=== PATIENT | male | born 1945 | race Caucasian/White ===

== ENCOUNTER 2019-10-09 02:01 | Emergency (ER) | payer MEDICARE ==
[~2019-10-09] VITALS: Ht 177.8 cm; Wt 95.3 kg
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
--- OUTSIDE RECORDS SUMMARY | 2019-10-09 02:04 | XMS REPORT | Summary of Care ---
Author Author [facility] Address [address] [place] [address] Phone Unavailable Care Team Providers Care Area Attendant Name Role Phone JUANITA Castaneda, BRAULIO Unavailable Unavailable MIGDALIA Garcia, HARRIS Unavailable Unavailable ILIA Garcia, LOUIS Unavailable Unavailable MARÍA VAZ CO, DASHAWN ROBERSON Unavailable Unavailable Rolan VAZ, Iftikhar Unavailable Unavailable DANNY VAZ CO, FREDY Unavailable Unavailable JUANITA MALDONADO CO, BRAULIO Unavailable Unavailable ILIA VAZ, LOUIS Unavailable Unavailable JAQUELINE HUA, VENITA Unavailable Unavailable KESHIA VAZ, MIKKI Schafer Unavailable Unavailable MARÍA Garcia, DASHAWN Unavailable Unavailable WERO GOODWIN, LOVE Unavailable Unavailable MARCO VAZ CO, ANEL Unavailable Unavailable MIGDALIA VAZ CO, HARRIS A Unavailable Unavailable Unavailable Unavailable Functional Status Name Dates Details Functional status health issues are not documented Status: Name Dates Details Cognitive status health issues are not documented Status: Problems Name Dates Details Acute UTI (599.0, N39.0) Status: Active Advanced care planning/counseling discussion (V65.49, Z71.89) Status: Active Allergic rhinitis due to pollen (477.0, J30.1) Status: Active Colon cancer screening (V76.51, Z12.11) Status: Active Depression screening (V79.0, Z13.31) Status: Active Dysthymia (300.4, F34.1) Status: Active Elevated lipids (272.4, E78.5) Status: Active Encounter for mini-mental status examination Status: Active Fatty liver (571.8, K76.0) Status: Active Flu vaccine need (V04.81, Z23) Status: Active H/O acute pancreatitis (V12.79, Z87.19) Status: Active Hypercalcemia (275.42, E83.52) Status: Active Lymphedema (457.1, I89.0) Status: Active Morbid obesity (278.01, E66.01) Status: Active Nocturnal dyspnea (786.02, R06.00) Status: Active Obesity, morbid, BMI 40.0-49.9 (278.01, E66.01) Status: Active RAMIRO on CPAP (327.23, G47.33) Status: Active Psychophysiological insomnia (307.42, F51.04) Status: Active S/P abdominal aortic aneurysm repair (V45.89, Z98.890) Status: Active S/P laparoscopic cholecystectomy (V45.89, Z90.49) Status: Active SOB (shortness of breath) (786.05, R06.02) Status: Active History of malignant neoplasm of skin (V10.83, Z85.828) Status: Resolved Slow transit constipation (564.01, K59.01) Status: Active Daytime hypersomnolence (780.54, G47.19) Status: Active 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, 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 Other dermatitis (692.9, L30.8) Status: Active History of Vasculitic ulcer of lower extremity (707.10, L97.909) Status: Resolved Venous stasis ulcer (454.0, I83.009) Status: Active Atrial dilatation (429.3, I51.7) Status: Active BPH associated with nocturia (600.01, N40.1) Status: Active Psoriasis (696.1, L40.9) Status: Active Seborrheic dermatitis (690.10, L21.9) Status: Active 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, N52.9) Status: Active ETD (Eustachian tube dysfunction), bilateral (381.81, H69.83) Status: Active Anticoagulant long-term use (V58.61, Z79.01) Status: Active History of claustrophobia (V11.8, Z86.59) Status: Active On statin therapy (V58.69, Z79.899) Status: Active Compression fracture of L3 lumbar vertebra (805.4, S32.030A) Status: Active Recurrent low back pain (724.2, M54.5) Status: Active Need for influenza vaccination (V04.81, Z23) Status: Active Dyspnea (786.09, R06.00) Status: Active Seasonal allergic rhinitis (477.9, J30.2) Status: Active Need for Tdap vaccination (V06.1, Z23) Status: Active Abrasion of left knee, initial encounter (916.0, S80.212A) Status: Active Abrasion of right knee, initial encounter (916.0, S80.211A) Status: Active Cellulitis of knee (682.6, L03.119) Status: Active Rib injury (959.11, S29.9XXA) Status: Active Bilateral contusion of ribs (922.1, S20.219A) Status: Active Multiple falls (V15.88, R29.6) Status: Active Low back pain (724.2, M54.5) Status: Active Ulcer of sacral region, stage 2 (707.8, L98.429) Status: Active COPD, 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, 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 Dyspnea on exertion (786.09, R06.09) Status: Active Severe mitral regurgitation (424.0, I34.0) Status: Active Aortic stenosis (424.1, I35.0) Status: Active Preoperative testing (V72.84, Z01.818) Status: Active 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, 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: Active Venous insufficiency (chronic) (peripheral) (459.81, I87.2) Status: Active Umbilical hernia (553.1, K42.9) Status: Active 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, Z98.890) Status: Active CKD (chronic kidney disease) stage 3, GFR 30-59 ml/min (585.3, N18.3) Status: Active Impaired fasting glucose (790.21, R73.01) Status: Active Hyperlipidemia (272.4, E78.5) Status: Active Mitral regurgitation (424.0, I34.0) Status: Active PVC (premature ventricular contraction) (427.69, I49.3) Status: Active Back pain (724.5, M54.9) Status: Active Thumb pain (729.5, M79.646) Status: Active Shoulder pain, left (719.41, M25.512) Status: Active At moderate risk for fall (V15.88, Z91.81) Status: Active Atrial fibrillation (427.31, I48.91) Status: Active CHF (congestive heart failure) (428.0, I50.9) Status: Active Essential (primary) hypertension (401.9, I10) Status: Active Medications Name Dates Details Fish Oil 1000 MG Oral Capsule TAKE 2 CAPSULE DAILY Active Potassium 99 MG Oral Tablet TAKE 2 TABLET DAILY * Refills: 0 Active Furosemide 40 MG Oral Tablet TAKE 1 TO 2 TABLETS BY MOUTH ONCE DAILY * Quantity: 100 Refills: 2 YEH D.O., BRAULIO * Start : 28-Jan-2016 Active Fluticasone Propionate 50 MCG/ACT Nasal Suspension USE 2 SPRAYS IN EACH NOSTRIL ONCE DAILY * Quantity: 1 Refills: 5 YEH D.O., BRAULIO * Start : 02-Aug-2018 Active 16 GM Bottle Acetaminophen-Codeine #3 300-30 MG Oral Tablet TAKE 1 TABLET 4 TIMES DAILY NEEDED FOR PAIN. * Quantity: 60 Refills: 0 YEH D.O., BRAULIO * Start : 14-Mar-2018 Active Metamucil Free & Natural 43 % Oral Powder daily * Refills: 0 * Start : 02-Apr-2017 Active 822 GM Bottle Levalbuterol Tartrate 45 MCG/ACT Inhalation Aerosol INHALE 1 TO 2 PUFFS EVERY 4 TO 6 HOURS NEEDED. * Quantity: 1 Refills: 3 YEH D.O., NOHEMIN * Start : 13-Nov-2015 Active 15 GM Inhaler Lisinopril 10 MG Oral Tablet TAKE 1 TABLET DAILY. * Quantity: 30 Refills: 11 LOUIS MORILLO M.D. * Start : 09-Aug-2019 Active Betamethasone Dipropionate Aug 0.05 % External Ointment APPLY SPARINGLY TO PSORIATIC AREAS TWICE DAILY UNTIL IMPROVED THEN DISCONTINUE U NTIL THE NEXT FLARE-UP. * Quantity: 1 Refills: 5 YEH D.O.BRAULIO * Start : 19-Nov-2017 Active 50 GM Tube Rosuvastatin Calcium 5 MG Oral Tablet TAKE 1 TABLET BEDTIME * Quantity: 90 Refills: 1 YEH D.O., BRAULIO * Start : 29-Mar-2018 Active Ferrous Sulfate 325 (65 Fe) MG Oral Tablet TAKE 1 TABLET DAILY DIRECTED. * Refills: 0 * Start : 05-May-2019 Active Ventolin HFA 108 (90 Base) MCG/ACT Inhalation Aerosol Solution INHALE 1 TO 2 PUFFS BY MOUTH EVERY 4 TO 6 HOURS NEEDED * Quantity: 1 Refills: 5 YEH D.O., BRAULIO * Start : 13-Dec-2018 Active 18 GM Inhaler TH Vitamin B-12 TABS TAKE 1 TABLET DAILY. * Refills: 0 Active Tylenol Arthritis Pain 8 Hour 650 MG TBCR TAKE 2 TABLET TWICE DAILY PRN * Refills: 0 Active Vitamin B-6 TABS Pt. states he takes i daily and thinks it is 100 mg. * Refills: 0 Active Multivitamins TABS TAKE 1 TABLET DAILY * Refills: 0 Active Compression Stocking Pressure 20-30 * Quantity: 1 Refills: 0 HARRIS NEGRON M.D. * Start : 14-Jul-2016 Active Diclofenac Sodium 1 % Transdermal Gel APPLY SPARINGLY TO AFFECTED AREA(S)twice DAILY * Quantity: 1 Refills: 3 YEH D.O.BRAULIO * Start : 13-Jul-2019 Active 100 GM Tube Allergies and Adverse Reactions Name Dates Details No Known Drug Allergies (Allergy) Status: Active Past Medical History Name Dates Details History of abdominal aortic aneurysm (AAA) (V12.59, Z86.79) Status: Resolved History of Abdominal aortic aneurysm without mention of rupture (441.4, I71.4) Status: Resolved History of abdominal pain (V13.89, Z87.898) Status: Resolved History of acute cholecystitis (V12.79, Z87.19) Status: Resolved History of biliary colic (V12.79, Z87.19) Status: Resolved History of Cholecystostomy care (V55.4, Z43.4) Status: Resolved History of cholelithiasis (V12.79, Z87.19) Status: Resolved History of chronic cholecystitis (V12.79, Z87.19) Status: Resolved History of Contusion of rib on right side (922.1, S20.211A) Status: Resolved History of diarrhea (V12.79, Z87.898) Status: Resolved History of diverticulitis (V12.70, Z87.19) Status: Resolved History of essential hypertension (V12.59, Z86.79) Status: Resolved History of Fall at home (E888.9, W19.XXXA) Status: Resolved History of Gallstone pancreatitis (577.0, K85.10) Status: Resolved History of hematuria (V13.09, Z87.448) Status: Resolved History of Hernia (553.9, K46.9) Status: Resolved History of hyperlipidemia (V12.29, Z86.39) Status: Resolved History of malignant neoplasm of skin (V10.83, Z85.828) Status: Resolved History of pneumococcal vaccination (V49.89, Z92.29) Status: Resolved History of Preoperative clearance (V72.84, Z01.818) Status: Resolved History of right flank pain (V13.89, Z87.898) Status: Resolved History of Stasis ulcer of ankle, left (454.0, I83.023) Status: Resolved History of Transient left leg weakness (729.89, R29.898) Status: Resolved History of Upper respiratory infection, acute (465.9, J06.9) Status: Resolved History of Vasculitic ulcer of lower extremity (707.10, L97.909) Status: Resolved Procedures Procedure Dates Details History of Hernia Repair Completed History of Cholecystectomy Completed History of Percutaneous Vertebral Augmentation Kyphoplasty Completed 12-Apr-2018 Immunization Name Dates Details Tdap on: Sep-2001 Influenza on: 27-Jun-2012 Fluzone INJ Lot #: [id number] on: 05-Jun-2013 Fluzone INJ on: 06-Jun-2014 Fluzone INJ on: 21-May-2015 Prevnar 13 Intramuscular Suspension Lot #: [id number] on: 28-Jun-2015 Fluzone Quadrivalent 0.5 ML Intramuscular Suspension Prefilled Syringe Lot #: [id number] on: 12-May-2016 Pneumovax 23 25 MCG/0.5ML Injection Injectable Lot #: [id number] on: 08-Jul-2016 Fluzone Quadrivalent 0.5 ML Intramuscular Suspension Prefilled Syringe Lot #: [id number] on: 18-May-2017 Fluzone Quadrivalent 0.5 ML Intramuscular Suspension Prefilled Syringe Lot #: [id number] on: 11-May-2018 Tdap (Boostrix) Lot #: [id number] on: 02-Aug-2018 Fluzone High-Dose 0.5 ML Intramuscular Suspension Prefilled Syringe Lot #: [id number] on: 14-Jun-2019 Family History Name Dates Details Family history of lung cancer (V16.1, Z80.1) Status: Active Name Dates Details Family history of Coronary artery disease (414.00, I25.10) Status: Active Family history of Aneurysm (442.9, I72.9) Status: Active Family history of Carotid artery disease (447.9, I73.9) Status: Active Social History Name Dates Details - Status: Name Dates Details Former smoker Former smoker Vital Signs Date Test Result Details No Known Vitals to report Results Date Description Value Details Results not documented Plan of Care Name Dates Details Planned Observations Planned Goals not documented Planned Encounters Appointment; ANTOLIN TONY On: 13-Oct-2019 14:30 Appointment; IFTIKHAR YI M.D. On: 13-Oct-2019 15:40 Appointment; LOUIS MORILLO M.D. On: 30-Oct-2019 13:20 Instructions Name Dates Details Instructions not documented Encounters Appointment; VASCULAR, SE Encounter Diagnosis: Problem not documented On: 18-Oct-2017 10:00 Appointment; HARRIS NEGRON M.D. Encounter Diagnosis: Problem not documented On: 19-Oct-2017 11:45 Appointment; HARRIS NEGRON M.D. Encounter Diagnosis: Problem not documented On: 19-Oct-2017 13:00 Appointment; KVNG SANTANA NP Encounter Diagnosis: Problem not documented On: 19-Nov-2017 11:15 Appointment; KVNG SANTANA NP Encounter Diagnosis: Problem not documented On: 03-Mar-2018 13:15 Appointment; BRAULIO GRANT D.O. Encounter Diagnosis: Problem not documented On: 14-Mar-2018 10:30 Appointment; LOUIS MORILLO M.D. Encounter Diagnosis: Problem not documented On: 29-Mar-2018 14:40 Appointment; BRAULIO GRANT D.O. Encounter Diagnosis: Problem not documented On: 20-Apr-2018 15:00 Appointment; KVNG SANTANA NP Encounter Diagnosis: Problem not documented On: 11-May-2018 13:00 Appointment; BRENDAN PAREKH Encounter Diagnosis: Problem not documented On: 29-Jun-2018 15:00 Appointment; LOUIS MORILLO M.D. Encounter Diagnosis: Problem not documented On: 04-Jul-2018 13:20 Appointment; BRAULIO GRANT D.O. Encounter Diagnosis: Problem not documented On: 02-Aug-2018 13:00 Appointment; LOVE CONTEH P.A. Encounter Diagnosis: Problem not documented On: 01-Sep-2018 11:15 Appointment; VENITA PARSONS NP Encounter Diagnosis: Problem not documented On: 03-Nov-2018 10:00 Appointment; BRAULIO GRANT D.O. Encounter Diagnosis: Problem not documented On: 22-Nov-2018 13:30 Appointment; BRAULIO GRANT D.O. Encounter Diagnosis: Problem not documented On: 28-Nov-2018 13:30 Appointment; HARRIS NEGRON M.D. Encounter Diagnosis: Problem not documented On: 01-Dec-2018 14:45 Appointment; BRAULIO GRANT D.O. Encounter Diagnosis: Problem not documented On: 07-Dec-2018 13:00 Appointment; VASCULAR, SE Encounter Diagnosis: Problem not documented On: 16-Dec-2018 13:00 Appointment; BRAULIO GRANT D.O. Encounter Diagnosis: Problem not documented On: 20-Dec-2018 15:00 Appointment; HARRIS NEGRON M.D. Encounter Diagnosis: Problem not documented On: 23-Dec-2018 14:15 Appointment; BRAULIO GRANT D.O. Encounter Diagnosis: Problem not documented On: 03-Jan-2019 13:00 Appointment; LOUIS MORILLO M.D. Encounter Diagnosis: Problem not documented On: 12-Jan-2019 14:40 Appointment; IFTIKHAR YI M.D. Encounter Diagnosis: Problem not documented On: 24-Feb-2019 13:20 Appointment; BRAULIO GRANT D.O. Encounter Diagnosis: Problem not documented On: 29-Mar-2019 14:00 Appointment; LOUIS MORILLO M.D. Encounter Diagnosis: Problem not documented On: 06-Apr-2019 11:20 Appointment; PROCEDURES, CARDIO Encounter Diagnosis: Problem not documented On: 11-Apr-2019 11:00 Appointment; BRAULIO GRANT D.O. Encounter Diagnosis: Problem not documented On: 05-May-2019 12:45 Appointment; ANTOLIN TONY Encounter Diagnosis: Problem not documented On: 12-May-2019 14:30 Appointment; IFTIKHAR YI M.D. Encounter Diagnosis: Problem not documented On: 12-May-2019 15:20 Appointment; LOUIS MORILLO M.D. Encounter Diagnosis: Problem not documented On: 18-May-2019 14:00 Appointment; [facility] Encounter Diagnosis: Problem not documented On: 23-May-2019 13:00 Appointment; BRAULIO GRANT D.O. Encounter Diagnosis: Problem not documented On: 14-Jun-2019 15:15 Appointment; LOUIS MORILLO M.D. Encounter Diagnosis: Problem not documented On: 03-Jul-2019 16:00 Appointment; BRAULIO GRATN D.O. Encounter Diagnosis: Problem not documented On: 13-Jul-2019 14:00 Appointment; FREDY DELGADO M.D. Encounter Diagnosis: Problem not documented On: 21-Jul-2019 11:00 Appointment; FREDY DELGADO M.D. Encounter Diagnosis: Problem not documented On: 18-Aug-2019 11:00
--- OUTSIDE RECORDS SUMMARY | 2019-10-09 02:04 | XMS REPORT | Summary of Care ---
Author Author [facility] Address [address] [place] [address] Phone Unavailable Care Team Providers Care Planning Feeder Name Role Phone JUANITA Castaneda, BRAULIO Unavailable Unavailable MIGDALIA Garcia, HARRIS Unavailable Unavailable ILIA Garcia, LOUIS Unavailable Unavailable MARÍA VAZ LA, DASHAWN ROBERSON Unavailable Unavailable Rolan VAZ, Iftikhar Unavailable Unavailable DANNY VAZ LA, FREDY Unavailable Unavailable JUANITA MALDONADO LA, BRAULIO Unavailable Unavailable ILIA VAZ, LOUIS Unavailable Unavailable JAQUELINE HENRYP, VENITA Unavailable Unavailable KESHIA VAZ, MIKKI Schafer Unavailable Unavailable MARÍA Garcia, DASHAWN Unavailable Unavailable WERO GOODWIN, LOVE Unavailable Unavailable MARCO VAZ LA, ANEL Unavailable Unavailable MIGDALIA VAZ LA, HARRIS A Unavailable Unavailable Unavailable Unavailable Functional Status Name Dates Details Functional status health issues are not documented Status: Name Dates Details Cognitive status health issues are not documented Status: Problems Name Dates Details History of Vasculitic ulcer of lower extremity (707.10, L97.909) Status: Resolved Seasonal allergic rhinitis (477.9, J30.2) Status: Active Abrasion of left knee, initial encounter (916.0, S80.212A) Status: Active Abrasion of right knee, initial encounter (916.0, S80.211A) Status: Active Cellulitis of knee (682.6, L03.119) Status: Active Low back pain (724.2, M54.5) Status: Active Severe mitral regurgitation (424.0, I34.0) Status: Active Aortic stenosis (424.1, I35.0) Status: Active CKD (chronic kidney disease) stage 3, GFR 30-59 ml/min (585.3, N18.3) Status: Active Impaired fasting glucose (790.21, R73.01) Status: Active Hyperlipidemia (272.4, E78.5) Status: Active Mitral regurgitation (424.0, I34.0) Status: Active 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, Z98.890) Status: Active Umbilical hernia (553.1, K42.9) Status: Active Venous insufficiency (chronic) (peripheral) (459.81, I87.2) Status: Active 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, 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: Active Preoperative testing (V72.84, Z01.818) Status: Active Dyspnea on exertion (786.09, R06.09) Status: Active COPD, 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, 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 Ulcer of sacral region, stage 2 (707.8, L98.429) Status: Active Multiple falls (V15.88, R29.6) Status: Active Bilateral contusion of ribs (922.1, S20.219A) Status: Active Rib injury (959.11, S29.9XXA) Status: Active Need for Tdap vaccination (V06.1, Z23) Status: Active Dyspnea (786.09, R06.00) Status: Active Need for influenza vaccination (V04.81, Z23) Status: Active Recurrent low back pain (724.2, M54.5) Status: Active Compression fracture of L3 lumbar vertebra (805.4, S32.030A) Status: Active On statin therapy (V58.69, Z79.899) Status: Active History of claustrophobia (V11.8, Z86.59) Status: Active Anticoagulant long-term use (V58.61, Z79.01) Status: Active ETD (Eustachian tube dysfunction), bilateral (381.81, H69.83) Status: Active 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, N52.9) Status: Active Seborrheic dermatitis (690.10, L21.9) Status: Active Psoriasis (696.1, L40.9) Status: Active BPH associated with nocturia (600.01, N40.1) Status: Active Atrial dilatation (429.3, I51.7) Status: Active Venous stasis ulcer (454.0, I83.009) Status: Active Other dermatitis (692.9, L30.8) Status: Active 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, 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 Daytime hypersomnolence (780.54, G47.19) Status: Active Slow transit constipation (564.01, K59.01) Status: Active History of malignant neoplasm of skin (V10.83, Z85.828) Status: Resolved SOB (shortness of breath) (786.05, R06.02) Status: Active S/P laparoscopic cholecystectomy (V45.89, Z90.49) Status: Active S/P abdominal aortic aneurysm repair (V45.89, Z98.890) Status: Active Psychophysiological insomnia (307.42, F51.04) Status: Active RAMIRO on CPAP (327.23, G47.33) Status: Active Obesity, morbid, BMI 40.0-49.9 (278.01, E66.01) Status: Active Nocturnal dyspnea (786.02, R06.00) Status: Active Morbid obesity (278.01, E66.01) Status: Active Lymphedema (457.1, I89.0) Status: Active Hypercalcemia (275.42, E83.52) Status: Active H/O acute pancreatitis (V12.79, Z87.19) Status: Active Flu vaccine need (V04.81, Z23) Status: Active Fatty liver (571.8, K76.0) Status: Active Encounter for mini-mental status examination Status: Active Elevated lipids (272.4, E78.5) Status: Active Dysthymia (300.4, F34.1) Status: Active Depression screening (V79.0, Z13.31) Status: Active Colon cancer screening (V76.51, Z12.11) Status: Active Allergic rhinitis due to pollen (477.0, J30.1) Status: Active Advanced care planning/counseling discussion (V65.49, Z71.89) Status: Active Acute UTI (599.0, N39.0) Status: Active Essential (primary) hypertension (401.9, I10) Status: Active CHF (congestive heart failure) (428.0, I50.9) Status: Active Atrial fibrillation (427.31, I48.91) Status: Active At moderate risk for fall (V15.88, Z91.81) Status: Active Shoulder pain, left (719.41, M25.512) Status: Active Thumb pain (729.5, M79.646) Status: Active Back pain (724.5, M54.9) Status: Active PVC (premature ventricular contraction) (427.69, I49.3) Status: Active Medications Name Dates Details Multivitamins TABS TAKE 1 TABLET DAILY Active Fish Oil 1000 MG Oral Capsule TAKE 2 CAPSULE DAILY * Refills: 0 Active Vitamin B-6 TABS Pt. states he takes i daily and thinks it is 100 mg. * Refills: 0 Active Potassium 99 MG Oral Tablet TAKE 2 TABLET DAILY * Refills: 0 Active Tylenol Arthritis Pain 8 Hour 650 MG TBCR TAKE 2 TABLET TWICE DAILY PRN * Refills: 0 Active Levalbuterol Tartrate 45 MCG/ACT Inhalation Aerosol INHALE 1 TO 2 PUFFS EVERY 4 TO 6 HOURS NEEDED. * Quantity: 1 Refills: 3 YEH D.O.BRAULIO * Start : 13-Nov-2015 Active 15 GM Inhaler Furosemide 40 MG Oral Tablet TAKE 1 TO 2 TABLETS BY MOUTH ONCE DAILY * Quantity: 100 Refills: 2 YEH D.O., BRAULIO * Start : 28-Jan-2016 Active Diclofenac Sodium 1 % Transdermal Gel APPLY SPARINGLY TO AFFECTED AREA(S)twice DAILY * Quantity: 1 Refills: 3 YEH D.O.BRAULIO * Start : 13-Jul-2019 Active 100 GM Tube Metamucil Free & Natural 43 % Oral Powder daily * Refills: 0 * Start : 02-Apr-2017 Active 822 GM Bottle Rosuvastatin Calcium 5 MG Oral Tablet TAKE 1 TABLET BEDTIME * Quantity: 90 Refills: 1 YEH D.O.BRAULIO * Start : 29-Mar-2018 Active Ferrous Sulfate 325 (65 Fe) MG Oral Tablet TAKE 1 TABLET DAILY DIRECTED. * Refills: 0 * Start : 05-May-2019 Active Fluticasone Propionate 50 MCG/ACT Nasal Suspension USE 2 SPRAYS IN EACH NOSTRIL ONCE DAILY * Quantity: 1 Refills: 5 YEH D.O.BRAULIO * Start : 02-Aug-2018 Active 16 GM Bottle Acetaminophen-Codeine #3 300-30 MG Oral Tablet TAKE 1 TABLET 4 TIMES DAILY NEEDED FOR PAIN. * Quantity: 60 Refills: 0 YEH D.O., BRAULIO * Start : 14-Mar-2018 Active Compression Stocking Pressure 20-30 * Quantity: 1 Refills: 0 MIGDALIA Garcia HARRIS * Start : 14-Jul-2016 Active TH Vitamin B-12 TABS TAKE 1 TABLET DAILY. * Refills: 0 Active Lisinopril 10 MG Oral Tablet TAKE 1 TABLET DAILY. * Quantity: 30 Refills: 11 FAUSTINO MORILLO M.D.D * Start : 09-Aug-2019 Active Ventolin HFA 108 (90 Base) MCG/ACT Inhalation Aerosol Solution INHALE 1 TO 2 PUFFS BY MOUTH EVERY 4 TO 6 HOURS NEEDED * Quantity: 1 Refills: 5 YEH D.O.BRAULIO * Start : 13-Dec-2018 Active 18 GM Inhaler Betamethasone Dipropionate Aug 0.05 % External Ointment APPLY SPARINGLY TO PSORIATIC AREAS TWICE DAILY UNTIL IMPROVED THEN DISCONTINUE U NTIL THE NEXT FLARE-UP. * Quantity: 1 Refills: 5 YEH D.O.BRAULIO * Start : 19-Nov-2017 Active 50 GM Tube Allergies and Adverse Reactions Name [...] Influenza on: 27-Jun-2012 Fluzone INJ Lot #: [id number] on: 05-Jun-2013 Fluzone INJ on: 06-Jun-2014 Fluzone INJ on: 21-May-2015 Prevnar 13 Intramuscular Suspension Lot #: [id number] on: 28-Jun-2015 Fluzone Quadrivalent 0.5 ML Intramuscular Suspension Prefilled Syringe Lot #: [id number] on: 12-May-2016 Pneumovax 23 25 MCG/0.5ML Injection Injectable Lot #: [id number] on: 08-Jul-2016 Fluzone Quadrivalent 0.5 ML Intramuscular Suspension Prefilled Syringe Lot #: [id number] on: 18-May-2017 Fluzone Quadrivalent 0.5 ML Intramuscular Suspension Prefilled Syringe Lot #: [id number] on: 11-May-2018 Tdap (Boostrix) Lot #: [id number] on: 02-Aug-2018 Fluzone High-Dose 0.5 ML Intramuscular Suspension Prefilled Syringe Lot #: [id number] on: 14-Jun-2019 Family History Name Dates Details [...] Problem not documented On: 18-May-2019 14:00 Appointment; [facility] Encounter Diagnosis: Problem not documented On: 23-May-2019 13:00 Appointment; BRAULIO GRANT D.O. Encounter Diagnosis: Problem not documented On: 14-Jun-2019 15:15 Appointment; LOUIS MORILLO M.D. Encounter Diagnosis: Problem not documented On: 03-Jul-2019 16:00 Appointment; BRAULIO GRANT D.O. Encounter Diagnosis: Problem not documented On: 13-Jul-2019 14:00 Appointment; FREDY DELGADO M.D. Encounter Diagnosis: Problem not documented On: 21-Jul-2019 11:00 Appointment; FREDY DELGADO M.D. Encounter Diagnosis: Problem not documented On: 18-Aug-2019 11:00
--- OUTSIDE RECORDS SUMMARY | 2019-10-09 02:04 | XMS REPORT | Summary of Care ---
Author Author [facility] Address [address] [place] [address] Phone Unavailable Care Team Providers Care Rigger Name Role Phone JUANITA Castaneda, BRAULIO Unavailable Unavailable MIGDALIA Garcia, HARRIS Unavailable Unavailable ILIA Garcia, LOUIS Unavailable Unavailable MARÍA VAZ PA, DASHAWN ROBERSON Unavailable Unavailable Rolan VAZ, Iftikhar Unavailable Unavailable DANNY VAZ PA, FREDY Unavailable Unavailable JUANITA MALDONADO PA, BRAULIO Unavailable Unavailable ILIA VAZ, LOUIS Unavailable Unavailable JAQUELINE HUA, VENITA Unavailable Unavailable KESHIA VAZ, MIKKI Scahfer Unavailable Unavailable MARÍA Garcia, DASHAWN Unavailable Unavailable WERO GOODWIN, LOVE Unavailable Unavailable MARCO VAZ PA, ANEL Unavailable Unavailable MIGDALIA VAZ PA, HARRIS A Unavailable Unavailable Unavailable Unavailable Functional [...] I10) Status: Active Medications Name Dates Details Multivitamins [...] TWICE DAILY PRN * Refills: 0 Active TH Vitamin B-12 TABS TAKE 1 TABLET DAILY. * Refills: 0 Active Levalbuterol Tartrate 45 MCG/ACT Inhalation Aerosol INHALE 1 TO 2 PUFFS EVERY 4 TO 6 HOURS NEEDED. * Quantity: 1 Refills: 3 YEH D.O., BRAULIO * Start : 13-Nov-2015 Active 15 GM Inhaler Furosemide 40 MG Oral Tablet TAKE 1 TO 2 TABLETS BY MOUTH ONCE DAILY * Quantity: 100 Refills: 2 YEH D.O., BRAULIO * Start : 28-Jan-2016 Active Compression Stocking Pressure 20-30 * Quantity: 1 Refills: 0 HARRIS NEGRON M.D. * Start : 14-Jul-2016 Active Metamucil Free & Natural 43 % Oral Powder daily * Refills: 0 * Start : 02-Apr-2017 Active 822 GM Bottle Betamethasone Dipropionate Aug 0.05 % External Ointment APPLY SPARINGLY TO PSORIATIC AREAS TWICE DAILY UNTIL IMPROVED THEN DISCONTINUE U NTIL THE NEXT FLARE-UP. * Quantity: 1 Refills: 5 YEH D.O., BRAULIO * Start : 19-Nov-2017 Active 50 GM Tube Acetaminophen-Codeine #3 300-30 MG Oral Tablet TAKE 1 TABLET 4 TIMES DAILY NEEDED FOR PAIN. * Quantity: 60 Refills: 0 YEH D.O., BRAULIO * Start : 14-Mar-2018 Active Rosuvastatin Calcium 5 MG Oral Tablet TAKE 1 TABLET BEDTIME * Quantity: 90 Refills: 1 YEH D.O., BRAULIO * Start : 29-Mar-2018 Active Fluticasone Propionate 50 MCG/ACT Nasal Suspension USE 2 SPRAYS IN EACH NOSTRIL ONCE DAILY * Quantity: 1 Refills: 5 YEH D.O., BRAULIO * Start : 02-Aug-2018 Active 16 GM Bottle Ventolin HFA 108 (90 Base) MCG/ACT Inhalation Aerosol Solution INHALE 1 TO 2 PUFFS BY MOUTH EVERY 4 TO 6 HOURS NEEDED * Quantity: 1 Refills: 5 YEH D.O., BRAULIO * Start : 13-Dec-2018 Active 18 GM Inhaler Ferrous Sulfate 325 (65 Fe) MG Oral Tablet TAKE 1 TABLET DAILY DIRECTED. * Refills: 0 * Start : 05-May-2019 Active Diclofenac Sodium 1 % Transdermal Gel APPLY SPARINGLY TO AFFECTED AREA(S)twice DAILY * Quantity: 1 Refills: 3 YEH D.O., BRAULIO * Start : 13-Jul-2019 Active 100 GM Tube Lisinopril 10 MG Oral Tablet TAKE 1 TABLET DAILY. * Quantity: 30 Refills: 11 LOUIS MORILLO M.D. * Start : 09-Aug-2019 Active Allergies and Adverse Reactions Name Dates Details [...] Influenza on: 27-Jun-2012 Fluzone INJ Lot #: [id number] on: 05-Jun-2013 Fluzone INJ on: 06-Jun-2014 Fluzone INJ on: 21-May-2015 Prevnar 13 Intramuscular Suspension Lot #: [id number] on: 28-Jun-2015 Fluzone Quadrivalent 0.5 ML Intramuscular Suspension Prefilled Syringe Lot #: [id number] on: 12-May-2016 Pneumovax 23 25 MCG/0.5ML Injection Injectable Lot #: [id number] on: 08-Jul-2016 Fluzone Quadrivalent 0.5 ML Intramuscular Suspension Prefilled Syringe Lot #: [id number] on: 18-May-2017 Fluzone Quadrivalent 0.5 ML Intramuscular Suspension Prefilled Syringe Lot #: [id number] on: 11-May-2018 Tdap (Boostrix) Lot #: [id number] on: 02-Aug-2018 Fluzone High-Dose 0.5 ML Intramuscular Suspension Prefilled Syringe Lot #: [id number] on: 14-Jun-2019 Family History Name Dates Details [...] Problem not documented On: 18-May-2019 14:00 Appointment; [facility] Encounter Diagnosis: Problem not documented On: 23-May-2019 [...]
--- OUTSIDE RECORDS SUMMARY | 2019-10-09 02:05 | XMS REPORT | Summary of Care ---
Author Author [facility] Address [address] [place] [address] Phone Unavailable Care Team Providers Care Associate Professor Of Biblical Studies Name Role Phone JUANITA Castaneda, BRAULIO Unavailable Unavailable MIGDALIA Garcia, HARRIS Unavailable Unavailable ILIA Garcia, LOUIS Unavailable Unavailable MARÍA VAZ [place], DASHAWN ROBERSON Unavailable Unavailable Rolan VAZ, Iftikhar Unavailable Unavailable DANNY VAZ [place], FREDY Unavailable Unavailable JUANITA MALDONADO [place], BRAULIO Unavailable Unavailable ILIA VAZ, LOUIS Unavailable Unavailable JAQUELINE HUA, VENITA Unavailable Unavailable KESHIA VAZ, MIKKI Schafer Unavailable Unavailable MARÍA Garcia, DASHAWN Unavailable Unavailable WERO GOODWIN, LOVE Unavailable Unavailable MARCO VAZ [place], ANEL Unavailable Unavailable MIGDALIA VAZ [place], HARRIS A Unavailable Unavailable Unavailable Unavailable Functional [...] Start : 13-Nov-2015 Active 15 GM Inhaler Metamucil Free & Natural 43 % Oral [...] Start : 02-Aug-2018 Active 16 GM Bottle Diclofenac Sodium 1 % Transdermal Gel APPLY SPARINGLY TO AFFECTED AREA(S)twice DAILY * Quantity: 1 Refills: 3 YEH D.O., BRAULIO * Start : 13-Jul-2019 Active 100 GM Tube Lisinopril 10 MG Oral Tablet TAKE 1 TABLET DAILY. * Quantity: 30 Refills: 11 ILIA Garcia FAUSTINOLiana * Start : 09-Aug-2019 Active Ferrous Sulfate 325 (65 Fe) MG Oral Tablet TAKE 1 TABLET DAILY DIRECTED. * Refills: 0 * Start : 05-May-2019 Active TH Vitamin B-12 TABS TAKE 1 TABLET DAILY. * Refills: 0 Active Compression Stocking Pressure 20-30 * Quantity: 1 Refills: 0 HARRIS NEGRON M.D. * Start : 14-Jul-2016 Active Ventolin HFA 108 (90 Base) MCG/ACT Inhalation Aerosol Solution INHALE 1 TO 2 PUFFS BY MOUTH EVERY 4 TO 6 HOURS NEEDED * Quantity: 1 Refills: 5 YEH D.O., BRAULIO * Start : 13-Dec-2018 Active 18 GM Inhaler Furosemide 40 MG Oral Tablet TAKE 1 TO 2 TABLETS BY MOUTH ONCE DAILY * Quantity: 100 Refills: 2 YEH D.O., BRAULIO * Start : 28-Jan-2016 Active Allergies and Adverse Reactions Name Dates [...] Influenza on: 27-Jun-2012 Fluzone INJ Lot #: [id number] on: 05-Jun-2013 Fluzone INJ on: 06-Jun-2014 Fluzone INJ on: 21-May-2015 Prevnar 13 Intramuscular Suspension Lot #: [id number] on: 28-Jun-2015 Fluzone Quadrivalent 0.5 ML Intramuscular Suspension Prefilled Syringe Lot #: [id number] on: 12-May-2016 Pneumovax 23 25 MCG/0.5ML Injection Injectable Lot #: [id number] on: 08-Jul-2016 Fluzone Quadrivalent 0.5 ML Intramuscular Suspension Prefilled Syringe Lot #: [id number] on: 18-May-2017 Fluzone Quadrivalent 0.5 ML Intramuscular Suspension Prefilled Syringe Lot #: [id number] on: 11-May-2018 Tdap (Boostrix) Lot #: [id number] on: 02-Aug-2018 Fluzone High-Dose 0.5 ML Intramuscular Suspension Prefilled Syringe Lot #: [id number] on: 14-Jun-2019 Family History Name Dates Details [...] Problem not documented On: 14-Mar-2018 10:30 Appointment; LUOIS MORILLO M.D. Encounter Diagnosis: Problem not documented [...] not documented On: 23-Dec-2018 14:15 Appointment; BRAULIO GARNT D.O. Encounter Diagnosis: Problem not documented On: [...] Problem not documented On: 18-May-2019 14:00 Appointment; [facility] Encounter Diagnosis: Problem not documented On: [...]
--- OUTSIDE RECORDS SUMMARY | 2019-10-09 02:05 | XMS REPORT | Summary of Care ---
Author Author [facility] Address [address] [place] [address] Phone Unavailable Care Team Providers Care Director Of Operations Name Role Phone JUANITA Castaneda, BRAULIO Unavailable Unavailable MIGDALIA Garcia, HARRIS Unavailable Unavailable ILIA Garcia, LOUIS Unavailable Unavailable MARÍA VAZ [place], DASHAWN ROBERSON Unavailable Unavailable Rolan VAZ, Iftikhar Unavailable Unavailable DANNY VAZ [place], FREDY Unavailable Unavailable JUANITA MALDONADO [place], BRAULIO Unavailable Unavailable ILIA VAZ, LOUIS Unavailable Unavailable JAQUELINE HUA, VENITA Unavailable Unavailable KESHIA VAZ, MIKKI Schafer Unavailable Unavailable MARÍA Garcia, DASHAWN Unavailable Unavailable WERO GOODWIN, LOVE Unavailable Unavailable MARCO VAZ [place], ANEL Unavailable Unavailable MIGDALIA VAZ NE, HARRIS A Unavailable Unavailable Unavailable Unavailable Functional [...] I10) Status: Active Medications Name Dates Details Potassium 99 MG Oral Tablet TAKE 2 TABLET DAILY Active Furosemide 40 MG Oral Tablet TAKE 1 TO 2 TABLETS BY MOUTH ONCE DAILY * Quantity: 100 Refills: 2 YEH D.O., BRAULIO * Start : 28-Jan-2016 Active Lisinopril 10 MG Oral Tablet TAKE 1 TABLET DAILY. * Quantity: 30 Refills: 11 LOUIS MORILLO M.D. * Start : 09-Aug-2019 Active Compression Stocking Pressure 20-30 * Quantity: 1 Refills: 0 HARRIS NEGRON M.D. * Start : 14-Jul-2016 Active Betamethasone Dipropionate Aug 0.05 % External Ointment APPLY SPARINGLY TO PSORIATIC AREAS TWICE DAILY UNTIL IMPROVED THEN DISCONTINUE U NTIL THE NEXT FLARE-UP. * Quantity: 1 Refills: 5 YEH D.O., BRAULIO * Start : 19-Nov-2017 Active 50 GM Tube Acetaminophen-Codeine #3 300-30 MG Oral Tablet TAKE 1 TABLET 4 TIMES DAILY NEEDED FOR PAIN. * Quantity: 60 Refills: 0 YEH D.O.BRAULIO * Start : 14-Mar-2018 Active Rosuvastatin Calcium 5 MG Oral Tablet TAKE 1 TABLET BEDTIME * Quantity: 90 Refills: 1 YEH D.O.BRAULIO * Start : 29-Mar-2018 Active Fluticasone Propionate [...] Refills: 0 * Start : 05-May-2019 Active Metamucil Free & Natural 43 % Oral Powder daily * Refills: 0 * Start : 02-Apr-2017 Active 822 GM Bottle Levalbuterol Tartrate 45 MCG/ACT Inhalation Aerosol INHALE 1 TO 2 PUFFS EVERY 4 TO 6 HOURS NEEDED. * Quantity: 1 Refills: 3 YEH D.O., BRAULIO * Start : 13-Nov-2015 Active 15 GM Inhaler TH Vitamin B-12 TABS TAKE 1 TABLET DAILY. * Refills: 0 Active Tylenol Arthritis Pain 8 Hour 650 MG TBCR TAKE 2 TABLET TWICE DAILY PRN * Refills: 0 Active Vitamin B-6 TABS Pt. states he takes i daily and thinks it is 100 mg. * Refills: 0 Active Fish Oil 1000 MG Oral Capsule TAKE 2 CAPSULE DAILY * Refills: 0 Active Multivitamins TABS TAKE 1 TABLET DAILY * Refills: 0 Active Diclofenac Sodium 1 % Transdermal Gel [...] Influenza on: 27-Jun-2012 Fluzone INJ Lot #: [id number] on: 05-Jun-2013 Fluzone INJ on: 06-Jun-2014 Fluzone INJ on: 21-May-2015 Prevnar 13 Intramuscular Suspension Lot #: [id number] on: 28-Jun-2015 Fluzone Quadrivalent 0.5 ML Intramuscular Suspension Prefilled Syringe Lot #: [id number] on: 12-May-2016 Pneumovax 23 25 MCG/0.5ML Injection Injectable Lot #: [id number] on: 08-Jul-2016 Fluzone Quadrivalent 0.5 ML Intramuscular Suspension Prefilled Syringe Lot #: [id number] on: 18-May-2017 Fluzone Quadrivalent 0.5 ML Intramuscular Suspension Prefilled Syringe Lot #: [id number] on: 11-May-2018 Tdap (Boostrix) Lot #: [id number] on: 02-Aug-2018 Fluzone High-Dose 0.5 ML Intramuscular Suspension Prefilled Syringe Lot #: [id number] on: 14-Jun-2019 Family History Name Dates Details [...] IFTIKHAR YI M.D. On: 13-Oct-2019 15:40 Appointment; [facility] On: 17-Oct-2019 14:00 Appointment; LOUIS MORILLO M.D. On: 30-Oct-2019 13:20 [...] Problem not documented On: 11-May-2018 13:00 Appointment; [facility] Encounter Diagnosis: Problem not documented On: 29-Jun-2018 [...] not documented On: 01-Dec-2018 14:45 Appointment; BRAULIO GRATN D.O. Encounter Diagnosis: Problem [...] not documented On: 12-May-2019 14:30 Appointment; IFTIKHAR IY M.D. Encounter Diagnosis: Problem not documented On: 12-May-2019 15:20 Appointment; LOUIS MORILLO M.D. Encounter Diagnosis: Problem not documented On: 18-May-2019 14:00 Appointment; [facility] Encounter Diagnosis: Problem not documented On: [...]
--- OUTSIDE RECORDS SUMMARY | 2019-10-09 02:05 | XMS REPORT | Summary of Care ---
Author Author [facility] Address [address] [place] [address] Phone Unavailable Care Team Providers Care Caramel Candy Maker Helper Name Role Phone JUANITA Castaneda, BRAULIO Unavailable [...] Unavailable WERO GOODWIN, LOVE Unavailable Unavailable MARCO AVZ [place], ANEL Unavailable Unavailable MIGDALIA VAZ [place], HARRIS A Unavailable Unavailable Unavailable Unavailable Functional Status Name Dates Details Functional status health issues are not documented Status: Name Dates Details Cognitive status health issues are not documented Status: Problems Name Dates Details Acute UTI (599.0, N39.0) Status: Active Colon cancer screening (V76.51, Z12.11) Status: Active Advanced care planning/counseling discussion (V65.49, Z71.89) Status: Active Allergic rhinitis due to pollen (477.0, J30.1) Status: Active Depression screening (V79.0, Z13.31) Status: [...] Low back pain (724.2, M54.5) Status: Active COPD, 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, 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 Ulcer of sacral region, stage 2 (707.8, L98.429) Status: Active Dyspnea on exertion (786.09, R06.09) [...] * Quantity: 1 Refills: 3 YEH D.O., KARINA-MJ * Start : 13-Nov-2015 Active 15 GM Inhaler Furosemide 40 MG Oral Tablet TAKE 1 TO 2 TABLETS BY MOUTH ONCE DAILY * Quantity: 100 Refills: 2 YEH D.O., KARINA-MJ * Start : 28-Jan-2016 Active Ventolin HFA 108 (90 Base) MCG/ACT Inhalation Aerosol Solution INHALE 1 TO 2 PUFFS BY MOUTH EVERY 4 TO 6 HOURS NEEDED * Quantity: 1 Refills: 5 YEH D.O., BRAULIO * Start : 13-Dec-2018 Active 18 GM Inhaler Rosuvastatin Calcium 5 MG Oral Tablet TAKE 1 TABLET BEDTIME * Quantity: 90 Refills: 1 YEH D.O., BRAULIO * Start : 29-Mar-2018 Active Fluticasone Propionate 50 MCG/ACT Nasal Suspension USE 2 SPRAYS IN EACH NOSTRIL ONCE DAILY * Quantity: 1 Refills: 5 YEH D.O., KARINA-MJ * Start : 02-Aug-2018 Active 16 GM Bottle Acetaminophen-Codeine #3 300-30 MG Oral Tablet TAKE 1 TABLET 4 TIMES DAILY NEEDED FOR PAIN. * Quantity: 60 Refills: 0 YEH D.O., BRAULIO * Start : 14-Mar-2018 Active Ferrous Sulfate 325 (65 Fe) MG [...] Influenza on: 27-Jun-2012 Fluzone INJ Lot #: [id number] on: 05-Jun-2013 Fluzone INJ on: 06-Jun-2014 Fluzone INJ on: 21-May-2015 Prevnar 13 Intramuscular Suspension Lot #: [id number] on: 28-Jun-2015 Fluzone Quadrivalent 0.5 ML Intramuscular Suspension Prefilled Syringe Lot #: [id number] on: 12-May-2016 Pneumovax 23 25 MCG/0.5ML Injection Injectable Lot #: [id number] on: 08-Jul-2016 Fluzone Quadrivalent 0.5 ML Intramuscular Suspension Prefilled Syringe Lot #: [id number] on: 18-May-2017 Fluzone Quadrivalent 0.5 ML Intramuscular Suspension Prefilled Syringe Lot #: [id number] on: 11-May-2018 Tdap (Boostrix) Lot #: [id number] on: 02-Aug-2018 Fluzone High-Dose 0.5 ML Intramuscular Suspension Prefilled Syringe Lot #: [id number] on: 14-Jun-2019 Family History Name Dates Details [...] Problem not documented On: 18-May-2019 14:00 Appointment; [facility] Encounter Diagnosis: Problem not documented On: [...]
[2019-10-09] MEDS ORDERED: DIATRIZOATE MEGL/DIATRIZOA SOD 30 ML BTL PO ONE (02:44)
[2019-10-09 03:18] LABS: BASOPHILS % 0.5 % (0.0-1.0); EOSINOPHILS # (AUTO) 0.1 (0.0-0.4); EOSINOPHILS % 1.9 % (0.0-6.0); HEMATOCRIT 35.7 % (38.2-49.6); HEMOGLOBIN 12.3 g/dL (14.0-18.0); LYMPHOCYTES # (AUTO) 1.1 (1.0-3.2); LYMPHOCYTES % 16.4 % (18.0-39.1); MEAN CORPUSCULAR HEMOGLOBIN 33.9 pg (28-32); MEAN CORPUSCULAR HGB CONC 34.5 g/dL (31-35); MEAN CORPUSCULAR VOLUME 98.3 fL (81-99); MONOCYTES # (AUTO) 0.5 (0.2-0.8); MONOCYTES % 7.4 % (4.4-11.3); NEUTROPHILS # (AUTO) 4.7 (2.1-6.9); NEUTROPHILS % 73.3 % (38.7-80.0); PLATELET COUNT 90 x10e3/uL (140-360); RED BLOOD COUNT 3.63 x10e6/uL (4.3-5.7); RED CELL DISTRIBUTION WIDTH 13.3 % (11.7-14.4)
[2019-10-09 03:19] LABS: INR 1.06
[2019-10-09 03:29] LABS: ALANINE AMINOTRANSFERASE 16 IU/L (0-55); ALBUMIN 3.6 g/dL (3.5-5.0); ALBUMIN/GLOBULIN RATIO 1.2 (0.8-2.0); ALKALINE PHOSPHATASE 58 IU/L (40-150); ANION GAP 15.2 mmol/L (8-16); BLOOD UREA NITROGEN 27 mg/dL (7-26); BUN/CREATININE RATIO 28 (6-25); CALCIUM 9.6 mg/dL (8.4-10.2); CARBON DIOXIDE 22 mmol/L (22-29); CHLORIDE 106 mmol/L (98-107); CREATINE KINASE 109 IU/L (30-200); CREATININE, SERUM 0.96 mg/dL (0.72-1.25); EST GLOMERULAR FILTRATION RATE > 60 ML/MIN (60-); GLUCOSE 107 mg/dL (74-118); POTASSIUM 4.2 mmol/L (3.5-5.1); SODIUM 139 mmol/L (136-145)
--- NOTE | 2019-10-09 04:59 | Diagnostic Imaging Report ---
CT Abdomen And Pelvis with Intravenous Contrast INDICATION: ^CONSTIPATION ^[id number] ^0400 TECHNIQUE: Thin collimation axial images obtained from the diaphragm to the level of the pubic symphysis following the uneventful administration of 100 cc of low osmolar, nonionic intravenous contrast. Dose reduction techniques used: Automated exposure control, adjustment of the mAs and/or kVp according to patient size, standardized low-dose protocol, and/or iterative reconstruction technique. RADIATION DOSE: Total DLP: 774.67 mGy*cm Estimated effective dose: (DLP x 0.015 x size factor) mSv CTDIvol has been reviewed. It is below the limits set by the Radiation Protocol Committee (RPC). COMPARISON: None. ABDOMEN FINDINGS: Lung Bases: The heart is enlarged with a pacemaker wire in the right ventricle. There is also a prosthetic cardiac valve. No pericardial or pleural effusions. Liver: Mildly lobular contours. Subcentimeter low attenuating lesion in segment 3/4 is too small to characterize. There is refluxed contrast into the intrahepatic IVC suggestive of right heart failure. Gallbladder: Absent. No biliary ductal dilatation. Pancreas: Normal attenuation without mass or ductal dilatation. Spleen: Normal in size. No evidence of mass. There may be focus of scarring in the mid section. No parenchymal calcifications Adrenal Glands: No evidence for mass. Kidneys: Right: Normal enhancement. Several cysts, measuring up to 2.0 cm.. No hydronephrosis. Left: Normal enhancement. No soft tissue mass. No hydronephrosis. Lymph Nodes: No lymphadenopathy. Aorta: Fusiform aneurysm of the infrarenal aorta measures 12 cm in length and 4.2 x 1.2 cm in the axial plane. Suprarenal aortic aneurysm measures 5.7 cm) dimension and 4.2 x 4.5 cm in the axial plane. Between the two, the aorta measures 2 cm. There is no aortic inflammation. The iliac arteries are tortuous. PELVIS FINDINGS: Bowel: Stomach: Collapsed but normal in appearance. Small Bowel: Fluid distended small bowel loops throughout. No inspissated enteric contents. No abnormal mural thickening. Large Bowel: Large stool burden throughout the colon. Prominent stool ball in the rectum without mural thickening or perirectal fat inflammation. Diverticulosis coli. No associated inflammation. Appendix: Normal. Bladder: Normal. Prostate gland contains several calcifications. Seminal vesicles are normal Peritoneum/retroperitoneum: No free fluid or fluid collection. Soft tissues: Marked diastases of the linea alba with anterior and leftward protrusion of small and large bowel into a broad-based hernia. No fluid in the hernia sac. There is inflammation along the right inguinal fold without discrete mass. Correlation with physical exam is needed. Bones: The bones are diffusely demineralized. Treated compression fracture of L3. No untreated compression fractures. No destructive lesions. IMPRESSION: 1. Diffuse moderate stool burden and diverticulosis coli. Prominent stool ball in the rectum without evidence of stercoral proctitis. No diverticulitis. 2. Large ventral hernia containing small bowel and large bowel. Mildly distended small bowel loops are suggestive of ileus, possibly secondary to constipation. 3. Fusiform aortic aneurysm as as described above. 4. Cardiomegaly and right heart failure. 5. Inflammation along the right inguinal fold of uncertain etiology. Please correlate with clinical exam findings. Signed by: Dr. Jeremiah Delgado MD on 10/09/2019 4:56 AM
[2019-10-09] MEDS: MINERAL OIL 132 ML BTL PR ONE (06:00)
[2019-10-09] MEDS ORDERED: MAGNESIUM CITR296 ML PO (07:04)
[2019-10-09] MEDS ORDERED: COLACE100 MG PO (07:04)
--- NOTE | 2019-10-09 07:56 | NUR ---
GIVEN BY TELEGRAPHIC SERVICE DISPATCHER PRIOR TO ARRIVAL.
== END 2019-10-09 08:10 | disposition home or self-care (01) ==
LOC: ER 02:01
DX: K59.00 Constipation, unspecified (principal); Z95.0 Presence of cardiac pacemaker
CPT/HCPCS: 36415; 74177; 80053; 82550; 82553; 84484; 85025; 85610; 99283

== ENCOUNTER 2019-12-08 22:54 | Inpatient (IN) | payer MEDICARE ==
[~2019-12-08] VITALS: Ht 177.8 cm; Wt 95.3 kg
[~2019-12-08 22:54] MED LIST: COLACE100 MG PO; MAGNESIUM CITR296 ML PO
--- OUTSIDE RECORDS SUMMARY | 2019-12-08 22:59 | XMS REPORT | Summary of Care ---
Author Author [facility] Address [address] [place] [address] Phone Unavailable Care Team Providers Care Training Coordinator Name Role Phone JUANITA Castaneda, BRAULIO Unavailable Unavailable MIGDALIA Garcia, HARRIS Unavailable Unavailable ILIA Garcia, LOUIS Unavailable Unavailable MARÍA VAZ [place], DASHAWN ROBERSON Unavailable Unavailable Rolan VAZ, Iftikhar Unavailable Unavailable DANNY VAZ [place], FREDY Unavailable Unavailable JUANITA MALDONADO [place], BRAULIO Unavailable Unavailable ILIA VAZ, LOUIS Unavailable Unavailable JAQUELINE HUA, VENITA Unavailable Unavailable KESHIA VAZ, MIKKI Schafer Unavailable Unavailable MARÍA Garcia, DASHAWN Unavailable Unavailable WERO GOODWIN, LOVE Unavailable Unavailable MARCO VAZ [place], ANEL Unavailable Unavailable MIGDALIA VAZ [place], HARRIS A Unavailable Unavailable Unavailable Unavailable Functional [...] Status: Active Dysthymia (300.4, F34.1) Status: Active History of malignant neoplasm of skin (V10.83, Z85.828) Status: Resolved Slow transit constipation (564.01, K59.01) Status: Active Daytime hypersomnolence (780.54, G47.19) Status: Active 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, 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 Other dermatitis (692.9, L30.8) Status: Active History of Vasculitic ulcer of lower extremity (707.10, L97.909) Status: Resolved Venous stasis ulcer (454.0, I83.009) Status: Active Atrial dilatation (429.3, I51.7) Status: Active Anticoagulant long-term use (V58.61, Z79.01) Status: Active History of claustrophobia (V11.8, Z86.59) Status: Active Compression fracture of L3 lumbar vertebra (805.4, S32.030A) Status: Active Recurrent low back pain (724.2, M54.5) Status: Active Need for influenza vaccination (V04.81, Z23) Status: Active Seasonal allergic rhinitis (477.9, J30.2) Status: Active Need for Tdap vaccination (V06.1, Z23) Status: Active Abrasion of left knee, initial encounter (916.0, S80.212A) Status: Active Abrasion of right knee, initial encounter (916.0, S80.211A) Status: Active Cellulitis of knee (682.6, L03.119) Status: Active Multiple falls (V15.88, R29.6) Status: Active Low back pain (724.2, M54.5) Status: Active Dyspnea on exertion (786.09, R06.09) Status: Active Severe mitral regurgitation (424.0, I34.0) Status: Active Aortic stenosis (424.1, I35.0) Status: Active Preoperative testing (V72.84, Z01.818) Status: Active 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, 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) Status: Active Hyperlipidemia (272.4, E78.5) Status: Active [...] Essential (primary) hypertension (401.9, I10) Status: Active Impaired fasting glucose (790.21, R73.01) Status: Active CKD (chronic kidney disease) stage 3, GFR 30-59 ml/min (585.3, N18.3) Status: Active Umbilical hernia (553.1, K42.9) Status: Active Venous insufficiency (chronic) (peripheral) (459.81, I87.2) Status: Active 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, 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: Active COPD, 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, 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 Ulcer of sacral region, stage 2 (707.8, L98.429) Status: Active Bilateral contusion of ribs (922.1, S20.219A) Status: Active Rib injury (959.11, S29.9XXA) Status: Active Dyspnea (786.09, R06.00) Status: Active On statin therapy (V58.69, Z79.899) Status: Active ETD (Eustachian tube dysfunction), bilateral (381.81, H69.83) Status: Active 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 * Quantity: 60 Refills: 0 YEH D.O., KARINA-MJ * Start : 14-Mar-2018 Active Rosuvastatin Calcium [...] Influenza on: 27-Jun-2012 Fluzone INJ Lot #: [id number] on: 05-Jun-2013 Fluzone INJ on: 06-Jun-2014 Fluzone INJ on: 21-May-2015 Prevnar 13 Intramuscular Suspension Lot #: [id number] on: 28-Jun-2015 Fluzone Quadrivalent 0.5 ML Intramuscular Suspension Prefilled Syringe Lot #: [id number] on: 12-May-2016 Pneumovax 23 25 MCG/0.5ML Injection Injectable Lot #: [id number] on: 08-Jul-2016 Fluzone Quadrivalent 0.5 ML Intramuscular Suspension Prefilled Syringe Lot #: [id number] on: 18-May-2017 Fluzone Quadrivalent 0.5 ML Intramuscular Suspension Prefilled Syringe Lot #: [id number] on: 11-May-2018 Tdap (Boostrix) Lot #: [id number] on: 02-Aug-2018 Fluzone High-Dose 0.5 ML Intramuscular Suspension Prefilled Syringe Lot #: [id number] on: 14-Jun-2019 Family History Name Dates Details [...] not documented On: 12-May-2019 15:20 Appointment; LOUIS MOIRLLO M.D. Encounter Diagnosis: Problem not documented On: 18-May-2019 14:00 Appointment; [facility] Encounter Diagnosis: Problem not documented On: [...]
--- OUTSIDE RECORDS SUMMARY | 2019-12-08 22:59 | XMS REPORT | Summary of Care ---
Author Author [facility] Address [address] [place] [address] Phone Unavailable Care Team Providers Care Sap Portal Architect Name Role Phone JUANITA Castaneda, BRAULIO Unavailable Unavailable MIGDALIA Garcia, HARRIS Unavailable Unavailable ILIA Garcia, LOUIS Unavailable Unavailable MARÍA VAZ [place], DASHAWN ROBERSON Unavailable Unavailable Rolan VAZ, Iftikhar Unavailable Unavailable DANNY VAZ [place], FREDY Unavailable Unavailable JUANITA MALDONADO [place], BRAULIO Unavailable Unavailable ILIA VAZ, LOUIS Unavailable Unavailable JAQUELINE HENRYP, VENITA Unavailable Unavailable KESHIA VAZ, MIKKI Schafer Unavailable Unavailable MARÍA Garcia, DASHAWN Unavailable Unavailable WERO GOODWIN, LOVE Unavailable Unavailable MARCO VAZ [place], ANEL Unavailable Unavailable MIGDALIA VAZ [place], HARRIS A Unavailable Unavailable Unavailable Unavailable Functional Status Name Dates Details Functional status health issues are not documented Status: Name Dates Details Cognitive status health issues are not documented Status: Problems Name Dates Details Need for influenza vaccination (V04.81, Z23) Status: Active PVC (premature ventricular contraction) (427.69, I49.3) Status: Active Back pain (724.5, M54.9) Status: Active On statin therapy (V58.69, Z79.899) Status: Active Preoperative testing (V72.84, Z01.818) Status: Active Dyspnea (786.09, R06.00) Status: Active Dyspnea on exertion (786.09, R06.09) Status: Active 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, 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) Status: Active Abrasion of right knee, initial encounter (916.0, S80.211A) Status: Active Cellulitis of knee (682.6, L03.119) Status: Active Abrasion of left knee, initial encounter (916.0, S80.212A) Status: Active Seborrheic dermatitis (690.10, L21.9) Status: Active ETD (Eustachian tube dysfunction), bilateral (381.81, H69.83) Status: Active Daytime hypersomnolence (780.54, G47.19) Status: Active Allergic rhinitis due to pollen (477.0, J30.1) Status: Active H/O acute pancreatitis (V12.79, Z87.19) Status: Active Morbid obesity (278.01, E66.01) Status: Active Advanced care planning/counseling discussion (V65.49, Z71.89) Status: Active Elevated lipids (272.4, E78.5) Status: Active Flu vaccine need (V04.81, Z23) Status: Active RAMIRO on CPAP (327.23, G47.33) Status: Active BPH associated with nocturia (600.01, N40.1) Status: Active Obesity, morbid, BMI 40.0-49.9 (278.01, E66.01) Status: Active Psychophysiological insomnia (307.42, F51.04) Status: Active SOB (shortness of breath) (786.05, R06.02) Status: Active Lymphedema (457.1, I89.0) Status: Active Psoriasis (696.1, L40.9) Status: Active Depression screening (V79.0, Z13.31) Status: Active Other dermatitis (692.9, L30.8) Status: Active S/P laparoscopic cholecystectomy (V45.89, Z90.49) Status: Active S/P abdominal aortic aneurysm repair (V45.89, Z98.890) Status: Active 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, N52.9) Status: Active Acute UTI (599.0, N39.0) Status: Active Nocturnal dyspnea (786.02, R06.00) Status: Active 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, 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 Colon cancer screening (V76.51, Z12.11) Status: Active Slow transit constipation (564.01, K59.01) Status: Active Hypercalcemia (275.42, E83.52) Status: Active Encounter for mini-mental status examination Status: Active Anticoagulant long-term use (V58.61, Z79.01) Status: Active Fatty liver (571.8, K76.0) Status: Active Dysthymia (300.4, F34.1) Status: Active Atrial dilatation (429.3, I51.7) Status: Active History of Vasculitic ulcer of lower extremity (707.10, L97.909) Status: Resolved History of malignant neoplasm of skin (V10.83, Z85.828) Status: Resolved Venous stasis ulcer (454.0, I83.009) Status: Active Need for Tdap vaccination (V06.1, Z23) Status: Active Shoulder pain, left (719.41, M25.512) Status: Active Recurrent low back pain (724.2, M54.5) Status: Active Compression fracture of L3 lumbar vertebra (805.4, S32.030A) Status: Active Essential (primary) hypertension (401.9, I10) Status: Active Atrial fibrillation (427.31, I48.91) Status: Active Ulcer of sacral region, stage 2 (707.8, L98.429) Status: Active History of claustrophobia (V11.8, Z86.59) Status: Active COPD, 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, 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 Seasonal allergic rhinitis (477.9, J30.2) Status: Active CHF (congestive heart failure) (428.0, I50.9) Status: Active Umbilical hernia (553.1, K42.9) Status: Active Hyperlipidemia (272.4, E78.5) Status: Active Impaired fasting glucose (790.21, R73.01) Status: Active Thumb pain (729.5, M79.646) Status: Active CKD (chronic kidney disease) stage 3, GFR 30-59 ml/min (585.3, N18.3) Status: Active Venous insufficiency (chronic) (peripheral) (459.81, I87.2) Status: Active At moderate risk for fall (V15.88, Z91.81) Status: Active 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, 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: Active Low back pain (724.2, M54.5) Status: Active Bilateral contusion of ribs (922.1, S20.219A) Status: Active Rib injury (959.11, S29.9XXA) Status: Active Multiple falls (V15.88, R29.6) Status: Active Mitral regurgitation (424.0, I34.0) Status: Active Aortic stenosis (424.1, I35.0) Status: Active Severe mitral regurgitation (424.0, I34.0) Status: Active Medications Name Dates Details Multivitamins [...] Resolved Procedures Procedure Dates Details History of Cholecystectomy Completed History of Hernia Repair Completed History of Percutaneous Vertebral Augmentation Kyphoplasty Completed 12-Apr-2018 Immunization Name Dates Details Tdap on: Sep-2001 Influenza on: 27-Jun-2012 Fluzone INJ Lot #: [id number] on: 05-Jun-2013 Fluzone INJ on: 06-Jun-2014 Fluzone INJ on: 21-May-2015 Prevnar 13 Intramuscular Suspension Lot #: [id number] on: 28-Jun-2015 Fluzone Quadrivalent 0.5 ML Intramuscular Suspension Prefilled Syringe Lot #: [id number] on: 12-May-2016 Pneumovax 23 25 MCG/0.5ML Injection Injectable Lot #: [id number] on: 08-Jul-2016 Fluzone Quadrivalent 0.5 ML Intramuscular Suspension Prefilled Syringe Lot #: [id number] on: 18-May-2017 Fluzone Quadrivalent 0.5 ML Intramuscular Suspension Prefilled Syringe Lot #: [id number] on: 11-May-2018 Tdap (Boostrix) Lot #: [id number] on: 02-Aug-2018 Fluzone High-Dose 0.5 ML Intramuscular Suspension Prefilled Syringe Lot #: [id number] on: 14-Jun-2019 Family History Name Dates Details Family history of lung cancer (V16.1, Z80.1) Status: Active Name Dates Details Family history of Aneurysm (442.9, I72.9) Status: Active Family history of Carotid artery disease (447.9, I73.9) Status: Active Family history of Coronary artery disease (414.00, I25.10) Status: Active Social History Name Dates Details [...] Problem not documented On: 18-May-2019 14:00 Appointment; [facility] Encounter Diagnosis: Problem not documented On: 23-May-2019 [...]
--- OUTSIDE RECORDS SUMMARY | 2019-12-08 22:59 | XMS REPORT | Summary of Care ---
Author Author [facility] Address [address] [place] [address] Phone Unavailable Care Team Providers Care Post Office Clerk Name Role Phone JUANITA Castaneda, BRAULIO Unavailable Unavailable MIGDALIA Garcia, HARRIS Unavailable Unavailable ILIA Garcia, LOUIS Unavailable Unavailable MARÍA VAZ [place], DASHAWN ROBERSON Unavailable Unavailable Rolan VAZ, Iftikhar Unavailable Unavailable DANNY VAZ [place], FREDY Unavailable Unavailable JUANITA MALDONADO [place], BRAULIO Unavailable Unavailable ILIA VAZ, L[place]IS Unavailable Unavailable JAQUELINE HUA, VENITA Unavailable Unavailable KESHIA VAZ, MIKKI Schafer Unavailable Unavailable MARÍA Garcia, DASHAWN Unavailable Unavailable WERO GOODWIN, LOVE Unavailable Unavailable MARCO VAZ [place], ANEL Unavailable Unavailable MIGDALIA VAZ [place], HARRIS A Unavailable Unavailable Unavailable Unavailable Functional [...] Start : 02-Apr-2017 Active 822 GM Bottle Diclofenac Sodium 1 % Transdermal [...] Influenza on: 27-Jun-2012 Fluzone INJ Lot #: [id number] on: 05-Jun-2013 Fluzone INJ on: 06-Jun-2014 Fluzone INJ on: 21-May-2015 Prevnar 13 Intramuscular Suspension Lot #: [id number] on: 28-Jun-2015 Fluzone Quadrivalent 0.5 ML Intramuscular Suspension Prefilled Syringe Lot #: [id number] on: 12-May-2016 Pneumovax 23 25 MCG/0.5ML Injection Injectable Lot #: [id number] on: 08-Jul-2016 Fluzone Quadrivalent 0.5 ML Intramuscular Suspension Prefilled Syringe Lot #: [id number] on: 18-May-2017 Fluzone Quadrivalent 0.5 ML Intramuscular Suspension Prefilled Syringe Lot #: [id number] on: 11-May-2018 Tdap (Boostrix) Lot #: [id number] on: 02-Aug-2018 Fluzone High-Dose 0.5 ML Intramuscular Suspension Prefilled Syringe Lot #: [id number] on: 14-Jun-2019 Family History Name Dates Details [...] not documented On: 04-Jul-2018 13:20 Appointment; BRAULIO RGANT D.O. Encounter Diagnosis: Problem not documented On: [...] Problem not documented On: 18-May-2019 14:00 Appointment; [facility] Encounter Diagnosis: Problem not documented On: [...]
--- OUTSIDE RECORDS SUMMARY | 2019-12-08 22:59 | XMS REPORT | Summary of Care ---
Author Author [facility] Address [address] [place] [address] Phone Unavailable Care Team Providers Care Director Of Search Engine Marketing Name Role Phone JUANITA Castaneda, BRAULIO Unavailable Unavailable MIGDALIA Garcia, HARRIS Unavailable Unavailable ILIA Garcia, LOUIS Unavailable Unavailable MARÍA VAZ [place], DASHAWN ROBERSON Unavailable Unavailable Rolan VAZ, Iftikhar Unavailable Unavailable DANNY VAZ [place], FRDEY Unavailable Unavailable JUANITA MALDONADO [place], BRAULIO Unavailable Unavailable ILIA VAZ, L[place]IS Unavailable Unavailable JAQUELINE HENRYP, VENITA Unavailable Unavailable KESHIA VAZ, MIKKI Schafer Unavailable Unavailable MARÍA Garcia, DASHAWN Unavailable Unavailable WERO GOODWIN, LOVE Unavailable Unavailable MARCO VAZ [place], ANEL Unavailable Unavailable MIGDALIA VAZ [place], HARRIS A Unavailable Unavailable Unavailable Unavailable Functional Status Name Dates Details Functional status health issues are not documented Status: Name Dates Details Cognitive status health issues are not documented Status: Problems Name Dates Details Advanced care planning/counseling discussion (V65.49, Z71.89) Status: [...] Active Atrial dilatation (429.3, I51.7) Status: Active Compression fracture of L3 lumbar vertebra (805.4, S32.030A) Status: Active Need for influenza vaccination (V04.81, [...] Essential (primary) hypertension (401.9, I10) Status: Active Umbilical hernia (553.1, K42.9) Status: Active Venous insufficiency (chronic) (peripheral) (459.81, I87.2) Status: Active 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, 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: Active COPD, 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 states he takes i daily and thinks it is 100 mg. * Refills: 0 Active Tylenol Arthritis Pain 8 Hour 650 MG TBCR TAKE 2 TABLET TWICE DAILY PRN * Refills: 0 Active TH Vitamin B-12 TABS TAKE 1 TABLET DAILY. * Refills: 0 Active Ventolin HFA 108 (90 Base) MCG/ACT Inhalation Aerosol Solution INHALE 1 TO 2 PUFFS BY MOUTH EVERY 4 TO 6 HOURS NEEDED * Quantity: 1 Refills: 5 YEH D.O., BRAULIO * Start : 13-Dec-2018 Active 18 GM Inhaler Ferrous Sulfate 325 (65 Fe) MG Oral Tablet TAKE 1 TABLET DAILY DIRECTED. * Refills: 0 * Start : 05-May-2019 Active Acetaminophen-Codeine #3 300-30 MG Oral Tablet TAKE 1 TABLET 4 TIMES DAILY NEEDED FOR PAIN. * Quantity: 60 Refills: 0 YEH D.O., BRAULIO * Start : 14-Mar-2018 Active Levalbuterol Tartrate 45 MCG/ACT Inhalation Aerosol INHALE 1 TO 2 PUFFS EVERY 4 TO 6 HOURS NEEDED. * Quantity: 1 Refills: 3 YEH D.O., BRAULIO * Start : 13-Nov-2015 Active 15 GM Inhaler Potassium 99 MG Oral Tablet TAKE 2 TABLET DAILY * Refills: 0 Active Lisinopril 10 MG Oral Tablet TAKE 1 TABLET DAILY. * Quantity: 30 Refills: 11 L[place]IS MORILLO M.D. * Start : 09-Aug-2019 Active Furosemide 40 MG Oral Tablet TAKE 1 TO 2 TABLETS BY MOUTH ONCE DAILY * Quantity: 100 Refills: 2 YEH D.O.BRAULIO * Start : 28-Jan-2016 Active Metamucil Free & Natural 43 % Oral Powder daily * Refills: 0 * Start : 02-Apr-2017 Active 822 GM Bottle Fluticasone Propionate 50 MCG/ACT Nasal Suspension USE 2 SPRAYS IN EACH NOSTRIL ONCE DAILY * Quantity: 1 Refills: 5 YEH D.O., BRAULIO * Start : 02-Aug-2018 Active 16 GM Bottle Diclofenac Sodium 1 % Transdermal Gel APPLY SPARINGLY TO AFFECTED AREA(S)twice DAILY * Quantity: 1 Refills: 3 YEH D.O., BRAULIO * Start : 13-Jul-2019 Active 100 GM Tube Rosuvastatin Calcium 5 MG Oral Tablet TAKE 1 TABLET BEDTIME * Quantity: 90 Refills: 1 YEH D.O., BRAULIO * Start : 29-Mar-2018 Active Betamethasone Dipropionate Aug 0.05 % External Ointment APPLY SPARINGLY TO PSORIATIC AREAS TWICE DAILY UNTIL IMPROVED THEN DISCONTINUE U NTIL THE NEXT FLARE-UP. * Quantity: 1 Refills: 5 YEH D.O., BRAULIO * Start : 19-Nov-2017 Active 50 GM Tube Compression Stocking Pressure 20-30 * Quantity: 1 Refills: 0 H[place]IS NEGRON M.D. * Start : 14-Jul-2016 Active Allergies and Adverse Reactions Name Dates [...] Influenza on: 27-Jun-2012 Fluzone INJ Lot #: [id number] on: 05-Jun-2013 Fluzone INJ on: 06-Jun-2014 Fluzone INJ on: 21-May-2015 Prevnar 13 Intramuscular Suspension Lot #: [id number] on: 28-Jun-2015 Fluzone Quadrivalent 0.5 ML Intramuscular Suspension Prefilled Syringe Lot #: [id number] on: 12-May-2016 Pneumovax 23 25 MCG/0.5ML Injection Injectable Lot #: [id number] on: 08-Jul-2016 Fluzone Quadrivalent 0.5 ML Intramuscular Suspension Prefilled Syringe Lot #: [id number] on: 18-May-2017 Fluzone Quadrivalent 0.5 ML Intramuscular Suspension Prefilled Syringe Lot #: [id number] on: 11-May-2018 Tdap (Boostrix) Lot #: [id number] on: 02-Aug-2018 Fluzone High-Dose 0.5 ML Intramuscular Suspension Prefilled Syringe Lot #: [id number] on: 14-Jun-2019 Family History Name Dates Details [...] Problem not documented On: 18-May-2019 14:00 Appointment; [facility] Encounter Diagnosis: Problem not documented [...]
--- OUTSIDE RECORDS SUMMARY | 2019-12-08 23:00 | XMS REPORT | Summary of Care ---
Author Author Sim Priest, [facility] Unknown Address Unknown Phone Unavailable Care Team Providers Care Diesel Dragline Operator Name Role Phone ROLAN Garcia, IFTIKHAR Unavailable Unavailable JUANITA Gaines.Rhonda, BRAULIO Unavailable Unavailable MIGDALIA Garcia, HARRIS Unavailable Unavailable ILIA Garcia, LOUIS Unavailable Unavailable MARÍA VAZ [place], DASHAWN ROBERSON Unavailable Unavailable Rolan VAZ, Iftikhar Unavailable Unavailable DANNY VAZ [place], FREDY Unavailable Unavailable JUANITA MALDONADO [place], BRAULIO Unavailable Unavailable ILIA VAZ, LOUIS Unavailable Unavailable JAQUELINE HENRYP, VENITA Unavailable Unavailable KESHIA VAZ, MIKKI S Unavailable Unavailable MARÍA Garcia, DASHAWN Unavailable Unavailable WERO GOODWIN, LOVE Unavailable Unavailable MARCO VAZ [place], ANEL Unavailable Unavailable MIGDALIA VAZ [place], HARRSI A Unavailable Unavailable Unavailable Unavailable Functional Status [...] MORILLO M.D. * Start : 09-Aug-2019 Active Eliquis 5 MG Oral Tablet TAKE 1 TABLET TWICE DAILY * Refills: 0 Active Allergies and Adverse Reactions Name Dates Details No Known Drug Allergies (Allergy) Status: Active Past Medical History Name Dates Details History of abdominal aortic aneurysm (AAA) (V12.59, Z86.79) Status: Resolved History of Abdominal aortic aneurysm without mention of rupture (441.4, I71.4) Status: Resolved History of abdominal pain (V13.89, Z87.898) Status: Resolved History of acute cholecystitis (V1.79, Z87.19) Status: Resolved History of biliary colic (V1.79, Z87.19) Status: Resolved History of Cholecystostomy care (V55.4, Z43.4) Status: Resolved History of cholelithiasis (V1.79, Z87.19) Status: Resolved History of chronic cholecystitis [...] Influenza on: 27-Jun-2012 Fluzone INJ Lot #: [id number] on: 05-Jun-2013 Fluzone INJ on: 06-Jun-2014 Fluzone INJ on: 21-May-2015 Prevnar 13 Intramuscular Suspension Lot #: [id number] on: 28-Jun-2015 Fluzone Quadrivalent 0.5 ML Intramuscular Suspension Prefilled Syringe Lot #: [id number] on: 12-May-2016 Pneumovax 23 25 MCG/0.5ML Injection Injectable Lot #: [id number] on: 08-Jul-2016 Fluzone Quadrivalent 0.5 ML Intramuscular Suspension Prefilled Syringe Lot #: [id number] on: 18-May-2017 Fluzone Quadrivalent 0.5 ML Intramuscular Suspension Prefilled Syringe Lot #: [id number] on: 11-May-2018 Tdap (Boostrix) Lot #: [id number] on: 02-Aug-2018 Fluzone High-Dose 0.5 ML Intramuscular Suspension Prefilled Syringe Lot #: [id number] on: 14-Jun-2019 Family History Name Dates Details [...] smoker Vital Signs Date Test Result Details [id number]-Mji-[id number] BP Systolic 151 mm[Hg] Status: Comments: Location: LUE; Position: Sitting BP Diastolic 65 mm[Hg] Status: Comments: Location: LUE; Position: Sitting Height 70 in Status: Weight 218 lb Status: Body Mass Index Calculated 31.28 kg/m2 Status: Body Surface Area Calculated 2.17 m2 Status: Heart Rate 61 /min Status: Comments: Location: L Brachial Artery; Respiration Rate 16 /min Status: Comments: Quality: Normal O2 SAT 92 % Status: Comments: Source: RA Results Date Description Value Details Results not documented Plan of Care Name Dates Details Planned Observations Planned Goals not documented Planned Encounters Appointment; AUGUSTUS WALKER On: 17-Oct-2019 14:00 Appointment; LOUIS MORILLO M.D. On: 30-Oct-2019 13:20 Interventions Provided Labs/Procedures/Imaging* Tobacco Use Screening; Done: 13 Oct 2019 Instructions Name Dates Details Instructions not documented [...] Problem not documented On: 11-May-2018 13:00 Appointment; [facility] [place] [place] Encounter Diagnosis: Problem not documented On: 29-Jun-2018 [...] Problem not documented On: 18-May-2019 14:00 Appointment; [facility] Encounter Diagnosis: Problem not documented On: 23-May-2019 [...] Diagnosis: Problem not documented On: 18-Aug-2019 11:00 Appointment; ANTOLIN TONY Encounter Diagnosis: Problem not documented On: 13-Oct-2019 14:30 Appointment; IFTIKHAR YI M.D. Encounter Diagnosis: Problem not documented On: 13-Oct-2019 15:40
--- OUTSIDE RECORDS SUMMARY | 2019-12-08 23:00 | XMS REPORT | Summary of Care ---
Author Author [facility] Address [address] [place] [address] Phone Unavailable Care Team Providers Care Take Up Operator Name Role Phone JUANITA Castaneda, BRAULIO Unavailable Unavailable MIGDALIA Garcia, HARRIS Unavailable Unavailable ILIA Garcia, LOUIS Unavailable Unavailable MARÍA VAZ [place], DASHAWN ROBERSON Unavailable Unavailable Rolan VAZ, Iftikhar Unavailable Unavailable DANNY VAZ [place], FREDY Unavailable Unavailable JUANITA MALDONADO CT, BRAULIO Unavailable Unavailable ILIA VAZ, LOUIS Unavailable Unavailable JAQUELINE HUA, VENITA Unavailable Unavailable KESHIA VAZ, MIKKI Schafer Unavailable Unavailable MARÍA Garcia, DASHAWN Unavailable Unavailable WERO GOODWIN, LOVE Unavailable Unavailable MARCO VAZ [place], ANEL Unavailable Unavailable MIGDALIA VAZ [place], HARRIS A Unavailable Unavailable Unavailable Unavailable Functional [...] * Quantity: 1 Refills: 3 YEH D.O., BRALUIO * Start : 13-Nov-2015 Active 15 GM [...] Influenza on: 27-Jun-2012 Fluzone INJ Lot #: [id number] on: 05-Jun-2013 Fluzone INJ on: 06-Jun-2014 Fluzone INJ on: 21-May-2015 Prevnar 13 Intramuscular Suspension Lot #: [id number] on: 28-Jun-2015 Fluzone Quadrivalent 0.5 ML Intramuscular Suspension Prefilled Syringe Lot #: [id number] on: 12-May-2016 Pneumovax 23 25 MCG/0.5ML Injection Injectable Lot #: [id number] on: 08-Jul-2016 Fluzone Quadrivalent 0.5 ML Intramuscular Suspension Prefilled Syringe Lot #: [id number] on: 18-May-2017 Fluzone Quadrivalent 0.5 ML Intramuscular Suspension Prefilled Syringe Lot #: [id number] on: 11-May-2018 Tdap (Boostrix) Lot #: [id number] on: 02-Aug-2018 Fluzone High-Dose 0.5 ML Intramuscular Suspension Prefilled Syringe Lot #: [id number] on: 14-Jun-2019 Family History Name Dates Details [...] Planned Goals not documented Planned Encounters Appointment; IFTIKHAR YI M.D. On: 13-Oct-2019 15:40 [...] Problem not documented On: 11-May-2018 13:00 Appointment; [facility] [place] Encounter Diagnosis: Problem not documented On: [...] Problem not documented On: 18-May-2019 14:00 Appointment; [facility] Encounter Diagnosis: Problem not documented On: 23-May-2019 [...]
--- OUTSIDE RECORDS SUMMARY | 2019-12-08 23:00 | XMS REPORT | Summary of Care ---
Author Author Ya Garcia Unknown Address Unknown Phone Unavailable Care Team Providers Care Upsetter Setter Up Name Role Phone ANTOLIN TONY Unavailable Unavailable JUANITA Castaneda, BRAULIO Unavailable Unavailable MIGDALIA Garcia, HARRIS Unavailable Unavailable ILIA Garcia, [place]IS Unavailable Unavailable MARÍA VAZ [place], DASHAWN ROBERSON Unavailable Unavailable Rolan VAZ, Iftikhar Unavailable Unavailable DANNY VAZ [place], FREDY Unavailable Unavailable JUANITA MALDONADO [place], BRAULIO Unavailable Unavailable ILIA VAZ, LOUIS Unavailable Unavailable JAQUELINE HUA, VENITA Unavailable Unavailable KESHIA VAZ, MIKKI Schafer Unavailable Unavailable MARÍA Garcia, DASHAWN Unavailable Unavailable WERO GOODWIN, LOVE Unavailable Unavailable MARCO VAZ [place], ANEL Unavailable Unavailable MIGDALIA VAZ [place], HARRIS A Unavailable Unavailable Unavailable Unavailable Functional [...] Influenza on: 27-Jun-2012 Fluzone INJ Lot #: [id number] on: 05-Jun-2013 Fluzone INJ on: 06-Jun-2014 Fluzone INJ on: 21-May-2015 Prevnar 13 Intramuscular Suspension Lot #: [id number] on: 28-Jun-2015 Fluzone Quadrivalent 0.5 ML Intramuscular Suspension Prefilled Syringe Lot #: [id number] on: 12-May-2016 Pneumovax 23 25 MCG/0.5ML Injection Injectable Lot #: [id number] on: 08-Jul-2016 Fluzone Quadrivalent 0.5 ML Intramuscular Suspension Prefilled Syringe Lot #: [id number] on: 18-May-2017 Fluzone Quadrivalent 0.5 ML Intramuscular Suspension Prefilled Syringe Lot #: [id number] on: 11-May-2018 Tdap (Boostrix) Lot #: [id number] on: 02-Aug-2018 Fluzone High-Dose 0.5 ML Intramuscular Suspension Prefilled Syringe Lot #: [id number] on: 14-Jun-2019 Family History Name Dates Details [...] smoker Vital Signs Date Test Result Details [id number]-Nnn-[id number]:26 BP Systolic 151 mm[Hg] Status: Comments: Location: [...] M.D. On: 30-Oct-2019 13:20 Interventions Provided Labs/Procedures/Imaging* [N] 2D Echo complete, with Doppler 65370; Done: 13 Oct 2019 Instructions Name Dates [...] Problem not documented On: 11-May-2018 13:00 Appointment; [facility] Encounter Diagnosis: Problem not documented On: 29-Jun-2018 [...] Problem not documented On: 18-May-2019 14:00 Appointment; [facility] Encounter Diagnosis: Problem not documented On: [...]
--- OUTSIDE RECORDS SUMMARY | 2019-12-08 23:00 | XMS REPORT | Summary of Care ---
Author Author [facility] Address [address] [place] [address] Phone Unavailable Care Team Providers Care Project Manager Interior Design Name Role Phone JUANITA Castaneda, BRAULIO Unavailable Unavailable MIGDALIA Garcia, HARRIS Unavailable Unavailable ILIA Garcia, LOUIS Unavailable Unavailable MARÍA VAZ [place], DASHAWN ROBERSON Unavailable Unavailable Rolan VAZ, Iftikhar Unavailable Unavailable DANNY VAZ [place], FREDY Unavailable Unavailable JUANITA MALDONADO [place], BRAULIO Unavailable Unavailable ILIA VAZ, LOUIS Unavailable Unavailable JAQUELINE HUA, VENITA Unavailable Unavailable KESHIA VAZ, MIKKI Schafer Unavailable Unavailable MARÍA Garcia, DASHAWN Unavailable Unavailable WERO GOODWIN, LOVE Unavailable Unavailable MARCO VAZ [place], ANEL Unavailable Unavailable MIGDALIA VAZ [place], HARRIS A Unavailable Unavailable Unavailable Unavailable Functional [...] Influenza on: 27-Jun-2012 Fluzone INJ Lot #: [id number] on: 05-Jun-2013 Fluzone INJ on: 06-Jun-2014 Fluzone INJ on: 21-May-2015 Prevnar 13 Intramuscular Suspension Lot #: [id number] on: 28-Jun-2015 Fluzone Quadrivalent 0.5 ML Intramuscular Suspension Prefilled Syringe Lot #: [id number] on: 12-May-2016 Pneumovax 23 25 MCG/0.5ML Injection Injectable Lot #: [id number] on: 08-Jul-2016 Fluzone Quadrivalent 0.5 ML Intramuscular Suspension Prefilled Syringe Lot #: [id number] on: 18-May-2017 Fluzone Quadrivalent 0.5 ML Intramuscular Suspension Prefilled Syringe Lot #: [id number] on: 11-May-2018 Tdap (Boostrix) Lot #: [id number] on: 02-Aug-2018 Fluzone High-Dose 0.5 ML Intramuscular Suspension Prefilled Syringe Lot #: [id number] on: 14-Jun-2019 Family History Name Dates Details [...] Problem not documented On: 18-May-2019 14:00 Appointment; [facility] Encounter Diagnosis: Problem not documented [...]
--- OUTSIDE RECORDS SUMMARY | 2019-12-08 23:01 | XMS REPORT | Summary of Care ---
Author Author [facility] Unknown Address Unknown Phone Unavailable Care Team Providers Care Photographers' Model Name Role Phone ROLAN Garcia, IFTIKHAR Unavailable Unavailable JUANITA Gaines.OSantiago, BRAULIO Unavailable Unavailable MIGDALIA Garcia, HARRIS Unavailable [...] Z87.898) Status: Resolved History of acute cholecystitis (V1., Z87.19) Status: Resolved History of biliary colic (V1, Z87.19) Status: Resolved History of Cholecystostomy care (V55.4, Z43.4) Status: Resolved History of cholelithiasis (V1.79, Z87.19) Status: Resolved History of chronic cholecystitis (V1.79, Z87.19) Status: Resolved History of Contusion of [...] L97.909) Status: Resolved Procedures Procedure Dates Details [QLH] CMP W/EGFR Date: 13-Oct-2019 [QLH] LIPID PANEL Date: 13-Oct-2019 [QLH] URIC ACID Date: 13-Oct-2019 [Q] B2 GLYCOPROTEIN I (IGM)AB Date: 13-Oct-2019 [QLH] PROTEIN, TOTAL Date: 13-Oct-2019 [N] 2D Echo complete, with Doppler 28627 Date: 13-Oct-2019 History of Hernia Repair Completed History of Cholecystectomy Completed History of Percutaneous Vertebral Augmentation Kyphoplasty Completed 12-Apr-2018 Immunization Name Dates Details Tdap on: Sep-2001 Influenza on: 27-Jun-2012 Fluzone INJ Lot #: [id number] on: 05-Jun-2013 Fluzone INJ on: 06-Jun-2014 Fluzone INJ on: 21-May-2015 Prevnar 13 Intramuscular Suspension Lot #: [id number] on: 28-Jun-2015 Fluzone Quadrivalent 0.5 ML Intramuscular Suspension Prefilled Syringe Lot #: [id number] on: 12-May-2016 Pneumovax 23 25 MCG/0.5ML Injection Injectable Lot #: [id number] on: 08-Jul-2016 Fluzone Quadrivalent 0.5 ML Intramuscular Suspension Prefilled Syringe Lot #: [id number] on: 18-May-2017 Fluzone Quadrivalent 0.5 ML Intramuscular Suspension Prefilled Syringe Lot #: [id number] on: 11-May-2018 Tdap (Boostrix) Lot #: [id number] on: 02-Aug-2018 Fluzone High-Dose 0.5 ML Intramuscular Suspension Prefilled Syringe Lot #: [id number] on: 14-Jun-2019 Family History Name Dates Details [...] smoker Vital Signs Date Test Result Details 2-Mgk-681228:26 BP Systolic 151 mm[Hg] Status: Comments: Location: [...] of Care Name Dates Details Planned Observations [N] 2D Echo complete, with Doppler 44378 Intent Comments: Approx [id number] Planned Goals not documented Planned Encounters Appointment; AUGUSTUS WALKER On: 17-Oct-2019 14:00 Appointment; LOUIS MORILLO M.D. On: 30-Oct-2019 13:20 Interventions Provided Labs/Procedures/Imaging* [Q] B2 GLYCOPROTEIN I (IGM)AB; To Be Done: 13 Oct 2019 * [QLH] CMP W/EGFR; To Be Done: 13 Oct 2019 * [QLH] LIPID PANEL; To Be Done: 13 Oct 2019 * [QLH] PROTEIN, TOTAL; To Be Done: 13 Oct 2019 * [QLH] URIC ACID; To Be Done: 13 Oct 2019 * Tobacco Use Screening; Done: 13 Oct 2019 Discussion/Summary* Severe MR * - Moderate to severe MR on 01/2016 echo with flail/prolapsed posterior leaflet. * - s/p Bandar transcatheter mitral valve repair * - LHC was no significant CAD in * - TTE today showed mild MR with mitral MG 3 mmHg, moderate and moderate TR * - patient euvolemic, continue lasix 40 mg daily, lisinopril 10 mg daily * Moderate * - DOREEN 02/21/19: LVEF 35-40% , RADHA 0.96 cm2, mean gradient 20 mmHg, Vmax was 3.2 * - DSE 02/2019: no change in dimensionless index with increasing dobutamine. * - TTE todayshowed moderate ---> continue to monitor * Afib, * - s/p SJM PPM by Dr. Delgado 10/04/19 * - due to ANNA anatomy Watchman device was unable to be delivered. * - continue Eliquis * - f/u with Dr. Delgado in 2 weeks * HLP: * - Continue crestor 5 daily * RTC 6 months Instructions Name Dates Details Instructions not documented [...] Problem not documented On: 18-May-2019 14:00 [facility] Encounter Diagnosis: Problem not documented On: 23-May-2019 [...]
--- OUTSIDE RECORDS SUMMARY | 2019-12-08 23:01 | XMS REPORT | Summary of Care ---
Author Author Giancarlo Valentin, Ruby Jordan Unknown Address Unknown Phone Unavailable Care Team Providers Care Gas Operation Manager Name Role Phone JUANITA Castaneda, BRAULIO Unavailable Unavailable MIGDALIA Garcia, HARRIS Unavailable Unavailable ILIA Garcia, LOUIS Unavailable Unavailable Giancarlo Valentin, Ruby Unavailable Unavailable MARÍA VAZ [place], DASHAWN ROBERSON Unavailable Unavailable Rolan VAZ, Iftikhar Unavailable Unavailable DANNY VAZ [place], FREDY Unavailable Unavailable JUANITA MALDONADO [place], BRAULIO Unavailable Unavailable ILIA VAZ, LOUIS Unavailable Unavailable JAQUELINE HENRYP, VENITA Unavailable Unavailable KESHIA VAZ, MIKKI S Unavailable Unavailable MARÍA Garcia, DASHAWN Unavailable Unavailable WERO GOODWIN, LOVE Unavailable Unavailable MARCO VAZ [place], ANEL Unavailable Unavailable MIGDALIA VAZ [place], HARRIS A Unavailable Unavailable Unavailable Unavailable Functional [...] (922.1, S20.211A) Status: Resolved History of diarrhea (V1.79, Z87.898) Status: Resolved History of diverticulitis (V12.70, [...] 13-Oct-2019 [N] 2D Echo complete, with Doppler 87307 Date: 13-Oct-2019 History of Hernia Repair Completed History of Cholecystectomy Completed History of Percutaneous Vertebral Augmentation Kyphoplasty Completed 12-Apr-2018 Immunization Name Dates Details Tdap on: Sep-2001 Influenza on: 27-Jun-2012 Fluzone INJ Lot #: [id number] on: 05-Jun-2013 Fluzone INJ on: 06-Jun-2014 Fluzone INJ on: 21-May-2015 Prevnar 13 Intramuscular Suspension Lot #: [id number] on: 28-Jun-2015 Fluzone Quadrivalent 0.5 ML Intramuscular Suspension Prefilled Syringe Lot #: [id number] on: 12-May-2016 Pneumovax 23 25 MCG/0.5ML Injection Injectable Lot #: [id number] on: 08-Jul-2016 Fluzone Quadrivalent 0.5 ML Intramuscular Suspension Prefilled Syringe Lot #: [id number] on: 18-May-2017 Fluzone Quadrivalent 0.5 ML Intramuscular Suspension Prefilled Syringe Lot #: [id number] on: 11-May-2018 Tdap (Boostrix) Lot #: [id number] on: 02-Aug-2018 Fluzone High-Dose 0.5 ML Intramuscular Suspension Prefilled Syringe Lot #: [id number] on: 14-Jun-2019 Family History Name Dates Details [...] smoker Vital Signs Date Test Result Details 4-Ail-585062:26 BP Systolic 151 mm[Hg] Status: Comments: Location: [...] Planned Goals not documented Planned Encounters Appointment; LOUIS MORILLO M.D. On: 30-Oct-2019 13:20 Appointment; KENZIE TONY On: 12-Apr-2020 13:00 Appointment; IFTIKHAR YI M.D. On: 12-Apr-2020 14:00 Appointment; FREDY DELGADO M.D. On: 19-Apr-2020 11:00 Instructions Name Dates Details Instructions not documented Encounters Appointment; HARRIS NEGRON M.D. Encounter Diagnosis: Problem [...] Problem not documented On: 11-May-2018 13:00 [facility] Encounter Diagnosis: Problem not documented On: 29-Jun-2018 [...] Problem not documented On: 18-May-2019 14:00 Appointment; [facility] Encounter Diagnosis: Problem not documented On: [...] Diagnosis: Problem not documented On: 13-Oct-2019 15:40 Appointment; AARON, DEVICE Encounter Diagnosis: Problem not documented On: 17-Oct-2019 14:00
--- OUTSIDE RECORDS SUMMARY | 2019-12-08 23:01 | XMS REPORT | Summary of Care ---
Author Author ROLAN Garcia, IFTIKHAR Jordan Unknown Address Unknown Phone Unavailable Care Team Providers Care Aerotriangulation Specialist Name Role Phone ROLAN Garcia, IFTIKHAR Unavailable Unavailable JUANITA Gaines.Rhonda, BRAULIO Unavailable Unavailable MIGDALIA Garcia, HARRIS Unavailable Unavailable ILIA Garcia, L[place]IS Unavailable Unavailable MARÍA VAZ [place], DASHAWN ROBERSON Unavailable Unavailable Rolan VAZ, Iftikhar Unavailable Unavailable DANNY VAZ [place], FREDY Unavailable Unavailable JUANITA MALDONADO [place], BRAULIO Unavailable Unavailable ILIA VAZ, LOUIS Unavailable Unavailable JAQUELINE HENRYP, VENITA Unavailable Unavailable KESHIA VAZ, MIKKI S Unavailable Unavailable MARÍA Garcia, DASHAWN Unavailable Unavailable WERO GOODWIN, LOVE Unavailable Unavailable MARCO VAZ [place], ANEL Unavailable Unavailable MIGDALIA VAZ [place], HARRIS A Unavailable Unavailable Unavailable Unavailable Functional [...] 13-Oct-2019 [N] 2D Echo complete, with Doppler 64770 Date: 13-Oct-2019 History of Hernia Repair Completed History of Cholecystectomy Completed History of Percutaneous Vertebral Augmentation Kyphoplasty Completed 12-Apr-2018 Immunization Name Dates Details Tdap on: Sep-2001 Influenza on: 27-Jun-2012 Fluzone INJ Lot #: [id number] on: 05-Jun-2013 Fluzone INJ on: 06-Jun-2014 Fluzone INJ on: 21-May-2015 Prevnar 13 Intramuscular Suspension Lot #: [id number] on: 28-Jun-2015 Fluzone Quadrivalent 0.5 ML Intramuscular Suspension Prefilled Syringe Lot #: [id number] on: 12-May-2016 Pneumovax 23 25 MCG/0.5ML Injection Injectable Lot #: [id number] on: 08-Jul-2016 Fluzone Quadrivalent 0.5 ML Intramuscular Suspension Prefilled Syringe Lot #: [id number] on: 18-May-2017 Fluzone Quadrivalent 0.5 ML Intramuscular Suspension Prefilled Syringe Lot #: [id number] on: 11-May-2018 Tdap (Boostrix) Lot #: [id number] on: 02-Aug-2018 Fluzone High-Dose 0.5 ML Intramuscular Suspension Prefilled Syringe Lot #: [id number] on: 14-Jun-2019 Family History Name Dates Details [...] smoker Vital Signs Date Test Result Details 3-Pzb-147444:26 BP Systolic 151 mm[Hg] Status: Comments: Location: [...] Observations [N] 2D Echo complete, with Doppler 73705 Intent Comments: Approx [id number] Planned Goals not documented Planned Encounters Appointment; [...] Problem not documented On: 18-May-2019 14:00 Appointment; [facility] Encounter Diagnosis: Problem not documented On: 23-May-2019 [...]
--- OUTSIDE RECORDS SUMMARY | 2019-12-08 23:01 | XMS REPORT | Summary of Care ---
Author Author ROLAN Garcia, IFTIKHAR Jordan Unknown Address Unknown Phone Unavailable Care Team Providers Care Sewing Machine Mechanic Name Role Phone ROLAN Garcia, IFTIKHAR Unavailable Unavailable JUANITA Gaines.Rhonda, BRAULIO Unavailable Unavailable MIGDALIA Garcia, HARRIS Unavailable Unavailable ILIA Garcia, LOUIS Unavailable Unavailable MARÍA VAZ [place], DASHAWN ROBERSON Unavailable Unavailable Rolan VAZ, Iftikhar Unavailable Unavailable DANNY VAZ [place], FREDY Unavailable Unavailable JUANITA MALDONADO [place], BRAULIO Unavailable Unavailable ILAI VAZ, LOUIS Unavailable Unavailable JAQUELINE HENRYP, VENITA [...] 13-Oct-2019 [N] 2D Echo complete, with Doppler 98202 Date: 13-Oct-2019 History of Hernia Repair Completed History of Cholecystectomy Completed History of Percutaneous Vertebral Augmentation Kyphoplasty Completed 12-Apr-2018 Immunization Name Dates Details Tdap on: Sep-2001 Influenza on: 27-Jun-2012 Fluzone INJ Lot #: [id number] on: 05-Jun-2013 Fluzone INJ on: 06-Jun-2014 Fluzone INJ on: 21-May-2015 Prevnar 13 Intramuscular Suspension Lot #: [id number] on: 28-Jun-2015 Fluzone Quadrivalent 0.5 ML Intramuscular Suspension Prefilled Syringe Lot #: [id number] on: 12-May-2016 Pneumovax 23 25 MCG/0.5ML Injection Injectable Lot #: [id number] on: 08-Jul-2016 Fluzone Quadrivalent 0.5 ML Intramuscular Suspension Prefilled Syringe Lot #: [id number] on: 18-May-2017 Fluzone Quadrivalent 0.5 ML Intramuscular Suspension Prefilled Syringe Lot #: [id number] on: 11-May-2018 Tdap (Boostrix) Lot #: [id number] on: 02-Aug-2018 Fluzone High-Dose 0.5 ML Intramuscular Suspension Prefilled Syringe Lot #: [id number] on: 14-Jun-2019 Family History Name Dates Details [...] smoker Vital Signs Date Test Result Details 5-Doi-503132:26 BP Systolic 151 mm[Hg] Status: Comments: Location: [...] Observations [N] 2D Echo complete, with Doppler 93766 Intent Comments: Approx [id number] Planned Goals not documented Planned Encounters Appointment; [...] not documented On: 18-May-2019 14:00 [facility] Encounter Diagnosis: Problem not documented On: [...]
--- OUTSIDE RECORDS SUMMARY | 2019-12-08 23:01 | XMS REPORT | Summary of Care ---
Author Author [facility] Address [address] [place] [address] Phone Unavailable Care Team Providers Care News Copy Editor Name Role Phone JUANITA Castaneda, BRAULIO Unavailable [...] 1 TABLET DAILY. * Refills: 0 Active Furosemide 40 MG Oral Tablet TAKE 1 TO 2 TABLETS BY MOUTH ONCE DAILY * Quantity: 100 Refills: 2 YEH D.O., BRAULIO * Start : 28-Jan-2016 Active Metamucil Free [...] D.O., BRAULIO * Start : 29-Mar-2018 Active Ventolin HFA 108 (90 Base) MCG/ACT [...] Start : 13-Jul-2019 Active 100 GM Tube Eliquis 5 MG Oral Tablet TAKE 1 TABLET TWICE DAILY * Refills: 0 Active Fluticasone Propionate 50 MCG/ACT Nasal Suspension [...] 20-30 * Quantity: 1 Refills: 0 MIGDALIA Garcia, HARRIS * Start : 14-Jul-2016 Active Levalbuterol Tartrate 45 MCG/ACT Inhalation Aerosol INHALE 1 TO 2 PUFFS EVERY 4 TO 6 HOURS NEEDED. * Quantity: 1 Refills: 3 YEH D.O., BRAULIO * Start : 13-Nov-2015 Active 15 GM Inhaler Lisinopril 10 MG Oral Tablet TAKE 1 TABLET DAILY. * Quantity: 30 Refills: 11 ILIA Garcia, LOUIS * Start : 09-Aug-2019 Active Allergies and [...] 13-Oct-2019 [N] 2D Echo complete, with Doppler 34464 Date: 13-Oct-2019 History of Hernia Repair Completed History of Cholecystectomy Completed History of Percutaneous Vertebral Augmentation Kyphoplasty Completed 12-Apr-2018 Immunization Name Dates Details Tdap on: Sep-2001 Influenza on: 27-Jun-2012 Fluzone INJ Lot #: [id number] on: 05-Jun-2013 Fluzone INJ on: 06-Jun-2014 Fluzone INJ on: 21-May-2015 Prevnar 13 Intramuscular Suspension Lot #: [id number] on: 28-Jun-2015 Fluzone Quadrivalent 0.5 ML Intramuscular Suspension Prefilled Syringe Lot #: [id number] on: 12-May-2016 Pneumovax 23 25 MCG/0.5ML Injection Injectable Lot #: [id number] on: 08-Jul-2016 Fluzone Quadrivalent 0.5 ML Intramuscular Suspension Prefilled Syringe Lot #: [id number] on: 18-May-2017 Fluzone Quadrivalent 0.5 ML Intramuscular Suspension Prefilled Syringe Lot #: [id number] on: 11-May-2018 Tdap (Boostrix) Lot #: [id number] on: 02-Aug-2018 Fluzone High-Dose 0.5 ML Intramuscular Suspension Prefilled Syringe Lot #: [id number] on: 14-Jun-2019 Family History Name Dates Details [...] smoker Vital Signs Date Test Result Details 9-Cua-849238:26 BP Systolic 151 mm[Hg] Status: Comments: Location: [...] Appointment; IFTIKHAR YI M.D. On: 12-Apr-2020 14:00 Instructions Name Dates Details Instructions not documented [...] Problem not documented On: 18-May-2019 14:00 Appointment; [facility] Encounter Diagnosis: Problem not documented On: 23-May-2019 [...]
--- OUTSIDE RECORDS SUMMARY | 2019-12-08 23:02 | XMS REPORT | Summary of Care ---
Author Author [facility] Address [address] [place] [address] Phone Unavailable Care Team Providers Care Vending Mechanic Name Role Phone JUANITA Castaneda, BRAULIO Unavailable Unavailable MIGDALIA Garcia, HARRIS Unavailable Unavailable ILIA Garcia, LOUIS Unavailable Unavailable MARÍA VAZ [place], DASHAWN ROBERSON Unavailable Unavailable Rolan VAZ, Iftikhar Unavailable Unavailable DANNY VAZ [place], FREDY Unavailable Unavailable JUANITA MALDONADO [place], BRAULIO Unavailable Unavailable ILIA VAZ, LOUIS Unavailable Unavailable JAQUELINE HUA, VENITA Unavailable Unavailable KESHIA VAZ, MIKKI S [...] Details Acute UTI (599.0, N39.0) Status: Active Elevated lipids (272.4, E78.5) Status: [...] Active Other dermatitis (692.9, L30.8) Status: Active Atrial dilatation (429.3, I51.7) Status: [...] Status: Active Dyspnea (786.09, R06.00) Status: Active Abrasion of left knee, initial encounter (916.0, S80.212A) Status: Active Abrasion of right knee, initial encounter (916.0, S80.211A) Status: Active Cellulitis of knee (682.6, L03.119) Status: Active Rib injury (959.11, S29.9XXA) Status: Active Bilateral contusion of ribs (922.1, S20.219A) Status: Active Multiple falls (V15.88, R29.6) Status: Active Low back pain (724.2, M54.5) Status: Active Dyspnea on exertion (786.09, R06.09) Status: Active Preoperative testing (V72.84, Z01.818) Status: Active 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, 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: Active Venous insufficiency (chronic) (peripheral) (459.81, I87.2) Status: Active Umbilical hernia (553.1, K42.9) Status: Active 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, Z98.890) Status: Active CKD (chronic kidney disease) stage 3, GFR 30-59 ml/min (585.3, N18.3) Status: Active Impaired fasting glucose (790.21, R73.01) Status: Active Shoulder pain, left (719.41, M25.512) Status: Active At moderate risk for fall (V15.88, Z91.81) Status: Active Atrial fibrillation (427.31, I48.91) Status: Active CHF (congestive heart failure) (428.0, I50.9) Status: Active Essential (primary) hypertension (401.9, I10) Status: Active Back pain (724.5, M54.9) Status: Active PVC (premature ventricular contraction) (427.69, I49.3) Status: Active Aortic stenosis (424.1, I35.0) Status: Active Severe mitral regurgitation (424.0, I34.0) Status: Active COPD, 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89) Status: Active Thumb pain (729.5, M79.646) Status: Active Mitral regurgitation (424.0, I34.0) Status: Active Hyperlipidemia (272.4, E78.5) Status: Active Medications Name Dates [...] Status: Resolved Procedures Procedure Dates Details [QLH] PROTEIN, TOTAL Date: 13-Oct-2019 [N] 2D Echo complete, with Doppler 90075 Date: 13-Oct-2019 History of Hernia Repair Completed History of Cholecystectomy Completed History of Percutaneous Vertebral Augmentation Kyphoplasty Completed 12-Apr-2018 Immunization Name Dates Details Tdap on: Sep-2001 Influenza on: 27-Jun-2012 Fluzone INJ Lot #: [id number] on: 05-Jun-2013 Fluzone INJ on: 06-Jun-2014 Fluzone INJ on: 21-May-2015 Prevnar 13 Intramuscular Suspension Lot #: [id number] on: 28-Jun-2015 Fluzone Quadrivalent 0.5 ML Intramuscular Suspension Prefilled Syringe Lot #: [id number] on: 12-May-2016 Pneumovax 23 25 MCG/0.5ML Injection Injectable Lot #: [id number] on: 08-Jul-2016 Fluzone Quadrivalent 0.5 ML Intramuscular Suspension Prefilled Syringe Lot #: [id number] on: 18-May-2017 Fluzone Quadrivalent 0.5 ML Intramuscular Suspension Prefilled Syringe Lot #: [id number] on: 11-May-2018 Tdap (Boostrix) Lot #: [id number] on: 02-Aug-2018 Fluzone High-Dose 0.5 ML Intramuscular Suspension Prefilled Syringe Lot #: [id number] on: 14-Jun-2019 Family History Name Dates Details [...] smoker Vital Signs Date Test Result Details :26 BP Systolic 151 mm[Hg] Status: Comments: Location: [...] Source: RA Results Date Description Value Details :45 [[facility]] LIPID PANEL CHOLESTEROL, TOTAL 159 mg/dl (Normal) Range: <200 HDL CHOLESTEROL 50 mg/dl (Normal) Range: > OR=40 TRIGLYCERIDES 172 mg/dl (Above high threshold) Range: <150 LDL-CHOLESTEROL 82 {MG/DL__CAL} (Normal) Comments: Reference range: <100 Desirable range <100 mg/dL for primary prevention; <70 mg/dL for patients with CHD or diabetic patients with > or=2 CHD risk factors. LDL-C is now calculated using moon Payne calculation, which is a validated novel method providing better accuracy than the Friedewald equation in the estimation of LDL-C. Missael REID et al. LUIS. 2013;310(19): 8019-8775 (http:/ /education.[employer].com/faq/NNQ945) CHOL/HDLC RATIO 3.2 {CALC} (Normal) Range: <5.0 NON HDL CHOLESTEROL 109 {MG/DL__CAL} (Normal) Range: <130 Comments: For patients with diabetes plus 1 major ASCVD risk factor, treating to a non-HDL-C goal of <100 mg/dL (LDL-C of <70 mg/dL) is considered a therapeutic option. :45 [[facility]] URIC ACID URIC ACID 8.4 mg/dl (Above high threshold) Range: 4.0-8.0 Comments: Therapeutic target for gout patients: <6.0 mg/dL :45 [QL] CMP W/EGFR GLUCOSE 87 mg/dl (Normal) Range: 65-99 Comments: Fasting reference interval UREA NITROGEN (BUN) 26 mg/dl (Above high threshold) Range: 7-25 CREATININE 1.20 mg/dl (Above high threshold) Range: 0.70-1.18 Comments: For patients >49 years of age, the reference limitfor Creatinine is approximately 13% higher for peopleidentified as -Bahamian. eGFR NON- 59 {ML/MIN/1.7} (Below low threshold) Range: > OR=60 eGFR 68 {ML/MIN/1.7} (Normal) Range: > OR=60 BUN/CREATININE RATIO 22 {CALC} (Normal) Range: 6-22 SODIUM 140 mmol/L (Normal) Range: 135-146 POTASSIUM 4.6 mmol/L (Normal) Range: 3.5-5.3 CHLORIDE 101 mmol/L (Normal) Range: 98-110 CARBON DIOXIDE 29 mmol/L (Normal) Range: 20-32 CALCIUM 9.9 mg/dl (Normal) Range: 8.6-10.3 PROTEIN, TOTAL 7.4 g/dl (Normal) Range: 6.1-8.1 ALBUMIN 4.1 g/dl (Normal) Range: 3.6-5.1 GLOBULIN 3.3 {G/DL__CALC} (Normal) Range: 1.9-3.7 ALBUMIN/GLOBULIN RATIO 1.2 {CALC} (Normal) Range: 1.0-2.5 BILIRUBIN, TOTAL 0.8 mg/dl (Normal) Range: 0.2-1.2 ALKALINE PHSPHATASE 69 u/l (Normal) Range: 35-144 AST 34 u/l (Normal) Range: 10-35 ALT 16 u/l (Normal) Range: 9-46 [id number]-Kqx-[id number]:45 [Q] B2 GLYCOPROTEIN I (IGM)AB Comments: REPORT COMMENT:FASTING:YES B2 GLYCOPROTEIN I (IGM)AB <9 {SMU} Range: < OR=20 Comments: The antiphospholipid antibody syndrome (APS) germán clinical-pathologic correlation that includesa clinical event (e.g. thrombosis, pregnancyloss, thrombocytopenia) and persistent positiveantiphospholipid antibodies (IgM or IgG NATACHA>40 MPL/GPL,IgM or IgG anti-b2GPI antibodies ora lupus anticoagulant). International consensusguidelines for APS suggest waiting at least 12weeks before retesting to confirm antibodypersistence. The Systemic Lupus InternationalCollaborating Clinics immunologicalclassification criteria for systemic lupuserythematosus (SLE) include testing for isotypeIgA, which has yet to be incorporated into APScriteria. Low level antiphospholipid antibodiesmay sometimes be detected in the setting ofinfection, drug therapy or aging. Plan of Care Name Dates Details Planned Observations Planned Goals not documented Planned Encounters Appointment; BRAULIO GRANT D.O. On: 26-Oct-2019 14:45 Appointment; LOUIS MORILLO M.D. On: 30-Oct-2019 13:20 Appointment; KENZIE TONY On: 12-Apr-2020 13:00 Appointment; IFTIKHAR YI M.D. On: 12-Apr-2020 14:00 Appointment; FREDY DELGADO M.D. On: 19-Apr-2020 11:00 Instructions Name Dates Details Instructions not documented Encounters Appointment; KVNG SANTANA APRN Encounter Diagnosis: Problem not documented On: 19-Nov-2017 11:15 Appointment; KVNG SANTANA APRN Encounter Diagnosis: Problem not documented On: 03-Mar-2018 13:15 Appointment; BRAULIO GRANT D.O. Encounter Diagnosis: Problem not documented On: 14-Mar-2018 10:30 Appointment; LOUIS MORILLO M.D. Encounter Diagnosis: Problem not documented On: 29-Mar-2018 14:40 Appointment; BRAULIO GRANT D.O. Encounter Diagnosis: Problem not documented On: 20-Apr-2018 15:00 Appointment; KVNG SANTANA VEHICLE MECHANIC Encounter Diagnosis: Problem not documented On: 11-May-2018 13:00 Appointment; BRENDAN PAREKH Encounter Diagnosis: Problem not documented On: 29-Jun-2018 15:00 Appointment; LOUIS MORILLO M.D. Encounter Diagnosis: Problem not documented On: 04-Jul-2018 13:20 Appointment; BRAULIO GRANT D.O. Encounter Diagnosis: Problem not documented On: 02-Aug-2018 13:00 Appointment; LOVE CONTEH P.A. Encounter Diagnosis: Problem not documented On: 01-Sep-2018 11:15 Appointment; VENITA PARSONS, VEHICLE MECHANIC Encounter Diagnosis: Problem not documented On: 03-Nov-2018 [...] Problem not documented On: 18-May-2019 14:00 [facility] Encounter Diagnosis: Problem not documented On: 23-May-2019 [...] Problem not documented On: 13-Oct-2019 15:40 Appointment; SOUTH, DEVICE Encounter Diagnosis: Problem not documented On: 17-Oct-2019 14:00
--- OUTSIDE RECORDS SUMMARY | 2019-12-08 23:02 | XMS REPORT | Summary of Care ---
Author Author JUANITA Castaneda, BRAULIO Organization Unknown Address Unknown Phone Unavailable Care Team Providers Care Fire Patrol Name Role Phone JUANITA Castaneda, BRAULIO Unavailable Unavailable MIGDALIA Garcia, HARRIS Unavailable Unavailable ILIA Garcia, L[place]IS Unavailable Unavailable MARÍA VAZ [place], DASHAWN ROBERSON Unavailable Unavailable Rolan VAZ, Iftikhar Unavailable Unavailable DANNY VAZ [place], FREDY Unavailable Unavailable JUANITA MALDONADO DC, BRAULIO Unavailable Unavailable ILIA VAZ, L[place]IS Unavailable Unavailable JAQUELINE HUA, VENITA Unavailable Unavailable KESHIA VAZ, MIKKI Schafer Unavailable Unavailable MARÍA Garcia, DASHAWN Unavailable Unavailable WERO GOODWIN, LOVE Unavailable Unavailable MARCO VAZ DC, ANEL Unavailable Unavailable MIGDALIA VAZ DC, HARRIS A Unavailable Unavailable Unavailable Unavailable Functional [...] YEH D.O.BRAULIO * Start : 28-Jan-2016 Active Compression Stocking [...] 13-Oct-2019 [N] 2D Echo complete, with Doppler [id number] Date: 13-Oct-2019 History of Hernia Repair Completed History of Cholecystectomy Completed History of Percutaneous Vertebral Augmentation Kyphoplasty Completed 12-Apr-2018 Immunization Name Dates Details Tdap on: Sep-2001 Influenza on: 27-Jun-2012 Fluzone INJ Lot #: [id number] on: 05-Jun-2013 Fluzone INJ on: 06-Jun-2014 Fluzone INJ on: 21-May-2015 Prevnar 13 Intramuscular Suspension Lot #: [id number] on: 28-Jun-2015 Fluzone Quadrivalent 0.5 ML Intramuscular Suspension Prefilled Syringe Lot #: [id number] on: 12-May-2016 Pneumovax 23 25 MCG/0.5ML Injection Injectable Lot #: [id number] on: 08-Jul-2016 Fluzone Quadrivalent 0.5 ML Intramuscular Suspension Prefilled Syringe Lot #: [id number] on: 18-May-2017 Fluzone Quadrivalent 0.5 ML Intramuscular Suspension Prefilled Syringe Lot #: [id number] on: 11-May-2018 Tdap (Boostrix) Lot #: [id number] on: 02-Aug-2018 Fluzone High-Dose 0.5 ML Intramuscular Suspension Prefilled Syringe Lot #: [id number] on: 14-Jun-2019 Family History Name Dates Details [...] RA Results Date Description Value Details :45 [QL] LIPID PANEL CHOLESTEROL, TOTAL 159 mg/dl (Normal) [...] LDL-C. Missael REID et al. LUIS. 2013;310(19): 4615-3351 (http:/ /education.[employer] website.com/faq/HRF186) CHOL/HDLC RATIO 3.2 {CALC} (Normal) Range: <5.0 NON HDL CHOLESTEROL 109 {MG/DL__CAL} (Normal) Range: <130 Comments: For patients with diabetes plus 1 major ASCVD risk factor, treating to a non-HDL-C goal of <100 mg/dL (LDL-C of <70 mg/dL) is considered a therapeutic option. :45 [[facility]] URIC ACID URIC ACID 8.4 mg/dl (Above [...] is approximately 13% higher for peopleidentified as -Prydeinig. eGFR NON- 59 {ML/MIN/1.7} (Below low threshold) [...] 10-35 ALT 16 u/l (Normal) Range: 9-46 [id number]:45 [Q] B2 GLYCOPROTEIN I (IGM)AB Comments: REPORT [...] Observations Planned Goals not documented Planned Encounters Home Health Referral Appointment; BRAULIO GRANT D.O. On: 26-Oct-2019 14:45 [...] documented On: 20-Apr-2018 15:00 Appointment; KVNG SANTANA CHRISTIAN SCIENCE READER Encounter Diagnosis: Problem not documented On: 11-May-2018 13:00 Appointment; BRENDAN PAREKH Encounter Diagnosis: Problem not documented On: 29-Jun-2018 15:00 Appointment; LOUIS MORILLO M.D. Encounter Diagnosis: Problem not documented On: 04-Jul-2018 13:20 Appointment; BRAULIO GRANT D.O. Encounter Diagnosis: Problem not documented On: 02-Aug-2018 13:00 Appointment; LOVE CONTEH P.A. Encounter Diagnosis: Problem not documented On: 01-Sep-2018 11:15 Appointment; VENITA PARSONS, ARABELLA Encounter Diagnosis: Problem not documented On: 03-Nov-2018 [...] Problem not documented On: 18-May-2019 14:00 Appointment; [facility], CARONTER Encounter Diagnosis: Problem not documented On: 23-May-2019 [...]
--- OUTSIDE RECORDS SUMMARY | 2019-12-08 23:02 | XMS REPORT | Summary of Care ---
Author Author [facility] Address [address] [place] [address] Phone Unavailable Care Team Providers Care Rotoformer Backtender Name Role Phone JUANITA Castaneda, BRAULIO Unavailable Unavailable MIGDALIA Garcia, HARRIS Unavailable Unavailable ILIA Garcia, [place]IS Unavailable Unavailable MARÍA VAZ [place], DASHAWN ROBERSON Unavailable Unavailable Rolan VAZ, Iftikhar Unavailable Unavailable DANNY VAZ [place], FREDY Unavailable Unavailable JUANITA MALDONADO [place], BRAULIO Unavailable Unavailable ILIA VAZ, L[place]IS Unavailable Unavailable JAQUELINE HUA, VENITA Unavailable Unavailable KESHIA VAZ, MIKKI Schafer Unavailable Unavailable MARÍA Garcia, DASHAWN Unavailable Unavailable WERO GOODWIN, LOVE Unavailable Unavailable MARCO VAZ [place], ANEL Unavailable Unavailable MIGDALIA VAZ [place], HARRIS A Unavailable Unavailable Unavailable Unavailable Functional Status Name Dates Details Functional status health issues are not documented Status: Name Dates Details Cognitive status health issues are not documented Status: Problems Name Dates Details Acute UTI (599.0, N39.0) Status: Active History of malignant neoplasm of skin (V10.83, Z85.828) Status: Resolved Slow transit constipation (564.01, K59.01) Status: Active Daytime hypersomnolence (780.54, G47.19) Status: Active 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, 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 Other dermatitis (692.9, L30.8) Status: Active Venous stasis ulcer (454.0, I83.009) Status: Active Atrial dilatation (429.3, I51.7) Status: Active Anticoagulant long-term use (V58.61, Z79.01) Status: Active On statin therapy (V58.69, Z79.899) Status: Active Compression fracture of L3 lumbar vertebra (805.4, S32.030A) Status: Active Recurrent low back pain (724.2, M54.5) Status: Active Dyspnea (786.09, R06.00) Status: Active Seasonal allergic rhinitis (477.9, J30.2) Status: Active Abrasion of left knee, initial encounter (916.0, S80.212A) Status: Active Abrasion of right knee, initial encounter (916.0, S80.211A) Status: Active Cellulitis of knee (682.6, L03.119) Status: Active Rib injury (959.11, S29.9XXA) Status: Active Bilateral contusion of ribs (922.1, S20.219A) Status: Active Low back pain (724.2, M54.5) Status: Active Ulcer of sacral region, stage 2 (707.8, L98.429) Status: Active COPD, 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, 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 Severe mitral regurgitation (424.0, I34.0) Status: Active Aortic stenosis (424.1, I35.0) Status: Active Preoperative testing (V72.84, Z01.818) Status: Active 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, Z98.890) Status: Active CKD (chronic kidney disease) stage 3, GFR 30-59 ml/min (585.3, N18.3) Status: Active Impaired fasting glucose (790.21, R73.01) Status: Active Mitral regurgitation (424.0, I34.0) Status: Active PVC (premature ventricular contraction) (427.69, I49.3) Status: Active Back pain (724.5, M54.9) Status: Active Shoulder pain, left (719.41, M25.512) Status: Active At moderate risk for fall (V15.88, Z91.81) Status: Active Atrial fibrillation (427.31, I48.91) Status: Active CHF (congestive heart failure) (428.0, I50.9) Status: Active Essential (primary) hypertension (401.9, I10) Status: Active Hyperlipidemia (272.4, E78.5) Status: Active Umbilical hernia (553.1, K42.9) Status: Active Venous insufficiency (chronic) (peripheral) (459.81, I87.2) Status: Active 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, 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: Active Dyspnea on exertion (786.09, R06.09) Status: Active Multiple falls (V15.88, R29.6) Status: Active Need for Tdap vaccination (V06.1, Z23) Status: Active Need for influenza vaccination (V04.81, Z23) Status: Active History of claustrophobia (V11.8, Z86.59) Status: Active ETD (Eustachian tube dysfunction), bilateral (381.81, H69.83) Status: Active 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, N52.9) Status: Active Seborrheic dermatitis (690.10, L21.9) Status: Active Psoriasis (696.1, L40.9) Status: Active BPH associated with nocturia (600.01, N40.1) Status: Active History of Vasculitic ulcer of lower extremity (707.10, L97.909) Status: Resolved SOB (shortness of breath) (786.05, [...] Active Thumb pain (729.5, M79.646) Status: Active Medications Name Dates Details Multivitamins [...] 13-Oct-2019 [N] 2D Echo complete, with Doppler [id number] Date: 13-Oct-2019 History of Hernia Repair Completed History of Cholecystectomy Completed History of Percutaneous Vertebral Augmentation Kyphoplasty Completed 12-Apr-2018 Immunization Name Dates Details Tdap on: Sep-2001 Influenza on: 27-Jun-2012 Fluzone INJ Lot #: [id number] on: 05-Jun-2013 Fluzone INJ on: 06-Jun-2014 Fluzone INJ on: 21-May-2015 Prevnar 13 Intramuscular Suspension Lot #: [id number] on: 28-Jun-2015 Fluzone Quadrivalent 0.5 ML Intramuscular Suspension Prefilled Syringe Lot #: [id number] on: 12-May-2016 Pneumovax 23 25 MCG/0.5ML Injection Injectable Lot #: [id number] on: 08-Jul-2016 Fluzone Quadrivalent 0.5 ML Intramuscular Suspension Prefilled Syringe Lot #: [id number] on: 18-May-2017 Fluzone Quadrivalent 0.5 ML Intramuscular Suspension Prefilled Syringe Lot #: [id number] on: 11-May-2018 Tdap (Boostrix) Lot #: [id number] on: 02-Aug-2018 Fluzone High-Dose 0.5 ML Intramuscular Suspension Prefilled Syringe Lot #: [id number] on: 14-Jun-2019 Family History Name Dates Details [...] smoker Vital Signs Date Test Result Details [id number] BP Systolic 151 mm[Hg] Status: Comments: Location: [...] Instructions not documented Encounters Appointment; KVNG SANTANA NP Encounter Diagnosis: Problem [...] Problem not documented On: 11-May-2018 13:00 Appointment; IGLESIA, ECHO Encounter Diagnosis: Problem not documented On: [...] Problem not documented On: 05-May-2019 12:45 Appointment; BRENDAN TONY1 Encounter Diagnosis: Problem not documented On: 12-May-2019 14:30 Appointment; IFTIKHAR YI M.D. Encounter Diagnosis: Problem not documented On: 12-May-2019 15:20 Appointment; LOUIS MORILLO M.D. Encounter Diagnosis: Problem not documented On: 18-May-2019 14:00 Appointment; [facility] Encounter Diagnosis: Problem not documented On: 23-May-2019 13:00 Appointment; BRAULIO GRANT D.O. Encounter Diagnosis: Problem not documented On: 14-Jun-2019 15:15 Appointment; LUOIS MORILLO M.D. Encounter Diagnosis: Problem [...]
--- OUTSIDE RECORDS SUMMARY | 2019-12-08 23:02 | XMS REPORT | Summary of Care ---
Author Author ROLAN Garcia, IFTIKHAR Jordan Unknown Address Unknown Phone Unavailable Care Team Providers Care Railway Equipment Operator Name Role Phone JUANITA Castaneda, BRAULIO Unavailable Unavailable MIGDALIA Garcia, HARRIS Unavailable Unavailable ILIA Garcia, LOUIS Unavailable Unavailable MARÍA VAZ [place], DASHAWN ROBERSON Unavailable Unavailable Rolan VAZ, Iftikhar Unavailable Unavailable DANNY VAZ [place], FREDY Unavailable Unavailable JUANITA MALDONADO [place], BRAULIO Unavailable Unavailable ILIA VAZ, LOUIS Unavailable Unavailable JAQUELINE HUA, VENITA Unavailable Unavailable KESHIA VAZ, MIKKI Schafer Unavailable Unavailable MARÍA Garcia, DASHAWN Unavailable Unavailable WERO GOODWIN, LOVE Unavailable Unavailable MARCO VAZ [place], ANEL Unavailable Unavailable MIGDALIA VAZ [place], HARRIS A Unavailable Unavailable Unavailable Unavailable Functional [...] Details Multivitamins TABS TAKE 1 TABLET DAILY M.A. Active Fish Oil 1000 MG Oral Capsule TAKE 2 CAPSULE DAILY * Refills: 0 M.A. Active Vitamin B-6 TABS Pt. states he takes i daily and thinks it is 100 mg. * Refills: 0 M.A. Active Potassium 99 MG Oral Tablet TAKE 2 TABLET DAILY * Refills: 0 M.A. Active Tylenol Arthritis Pain 8 Hour 650 MG TBCR TAKE 2 TABLET TWICE DAILY PRN * Refills: 0 M.A. Active TH Vitamin B-12 TABS TAKE 1 TABLET DAILY. * Refills: 0 M.A. Active Levalbuterol Tartrate 45 MCG/ACT Inhalation Aerosol [...] Garcia HARRIS * Start : 14-Jul-2016 Active Metamucil Free & Natural 43 % Oral Powder daily * Refills: 0 M.A. * Start : 02-Apr-2017 Active 822 GM Bottle Betamethasone Dipropionate Aug 0.05 % External Ointment APPLY SPARINGLY TO PSORIATIC AREAS TWICE DAILY UNTIL IMPROVED THEN DISCONTINUE U NTIL THE NEXT FLARE-UP. * Quantity: 1 Refills: 5 YEH D.O.BRAULIO * Start : 19-Nov-2017 Active 50 GM Tube Ferrous Sulfate 325 (65 Fe) MG Oral Tablet TAKE 1 TABLET DAILY DIRECTED. * Refills: 0 M.A. * Start : 05-May-2019 Active Diclofenac Sodium [...] 1 TABLET TWICE DAILY * Refills: 0 M.A. Active Ventolin HFA 108 (90 Base) MCG/ACT Inhalation Aerosol Solution INHALE 1 TO 2 PUFFS BY MOUTH EVERY 4 TO 6 HOURS NEEDED * Quantity: 1 Refills: 5 YEH D.O., BRAULIO * Start : 13-Dec-2018 Active 18 GM Inhaler Fluticasone Propionate 50 MCG/ACT Nasal Suspension USE 2 SPRAYS IN EACH NOSTRIL ONCE DAILY * Quantity: 1 Refills: 5 YEH D.O., BRAULIO * Start : 02-Aug-2018 Active 16 GM Bottle Rosuvastatin Calcium 5 MG Oral Tablet TAKE 1 TABLET BEDTIME * Quantity: 90 Refills: 1 YEH D.O., BRAULIO * Start : 29-Mar-2018 Active Acetaminophen-Codeine #3 300-30 MG Oral Tablet TAKE 1 TABLET 4 TIMES DAILY NEEDED FOR PAIN. * Quantity: 60 Refills: 0 YEH D.O., BRAULIO * Start : 14-Mar-2018 Active Allergies and Adverse Reactions Name Dates [...] 13-Oct-2019 [N] 2D Echo complete, with Doppler [id number] Date: 13-Oct-2019 History of Hernia Repair Completed History of Cholecystectomy Completed History of Percutaneous Vertebral Augmentation Kyphoplasty Completed 12-Apr-2018 Immunization Name Dates Details Tdap on: Sep-2001 Influenza on: 27-Jun-2012 Fluzone INJ Lot #: [id number] on: 05-Jun-2013 Fluzone INJ on: 06-Jun-2014 Fluzone INJ on: 21-May-2015 Prevnar 13 Intramuscular Suspension Lot #: [id number] on: 28-Jun-2015 Fluzone Quadrivalent 0.5 ML Intramuscular Suspension Prefilled Syringe Lot #: [id number] on: 12-May-2016 Pneumovax 23 25 MCG/0.5ML Injection Injectable Lot #: [id number] on: 08-Jul-2016 Fluzone Quadrivalent 0.5 ML Intramuscular Suspension Prefilled Syringe Lot #: [id number] on: 18-May-2017 Fluzone Quadrivalent 0.5 ML Intramuscular Suspension Prefilled Syringe Lot #: [id number] on: 11-May-2018 Tdap (Boostrix) Lot #: [id number] on: 02-Aug-2018 Fluzone High-Dose 0.5 ML Intramuscular Suspension Prefilled Syringe Lot #: [id number] on: 14-Jun-2019 Family History Name Dates Details [...] RA Results Date Description Value Details :45 [[facility]] LIPID PANEL CHOLESTEROL, TOTAL 159 mg/dl (Normal) [...] of LDL-C. Missael REID et al. LUIS. 2013;310(56): 5741-4615 (http:/ /education.Quest[employer]/faq/HPF658) CHOL/HDLC RATIO 3.2 {CALC} (Normal) Range: <5.0 NON HDL CHOLESTEROL 109 {MG/DL__CAL} (Normal) Range: <130 Comments: For patients with diabetes plus 1 major ASCVD risk factor, treating to a non-HDL-C goal of <100 mg/dL (LDL-C of <70 mg/dL) is considered a therapeutic option. :45 [[facility]] URIC ACID URIC ACID 8.4 mg/dl (Above high threshold) Range: 4.0-8.0 Comments: Therapeutic target for gout patients: <6.0 mg/dL :45 [[facility]] CMP W/EGFR GLUCOSE 87 mg/dl (Normal) Range: 65-99 Comments: Fasting reference interval UREA NITROGEN (BUN) 26 mg/dl (Above high threshold) Range: 7-25 CREATININE 1.20 mg/dl (Above high threshold) Range: 0.70-1.18 Comments: For patients >49 years of age, the reference limitfor Creatinine is approximately 13% higher for peopleidentified as -Sierra [place]an. eGFR NON- 59 {ML/MIN/1.7} (Below low threshold) [...] 10-35 ALT 16 u/l (Normal) Range: 9-46 [id number]-[id number] [Q] B2 GLYCOPROTEIN I (IGM)AB Comments: REPORT [...] Problem not documented On: 18-May-2019 14:00 Appointment; [facility] Encounter Diagnosis: Problem not documented On: 23-May-2019 [...]
--- OUTSIDE RECORDS SUMMARY | 2019-12-08 23:03 | XMS REPORT | Summary of Care ---
Author Author Adelaide Goldman M.A. Organization Unknown Address Unknown Phone Unavailable Care Team Providers Care Nitriles Lab Technician Name Role Phone Adelaide Goldman M.A. Unavailable Unavailable JUANITA Castaneda, BRAULIO Unavailable Unavailable MIGDALIA Garcia, HARRIS Unavailable Unavailable ILIA Garcia, LOUIS Unavailable Unavailable MARÍA VAZ [place], DASHAWN ROBERSON Unavailable Unavailable Rolan VAZ, Iftikhar Unavailable Unavailable DANNY VAZ MA, FREDY Unavailable Unavailable JUANITA MALDONADO MA, BRAULIO Unavailable Unavailable ILIA VAZ, LOUIS Unavailable Unavailable JAQUELINE HUA, VENITA Unavailable Unavailable KESHIA VAZ, MIKKI S Unavailable Unavailable MARÍA Garcia, DASHAWN Unavailable Unavailable WERO GOODWIN, LOVE Unavailable Unavailable MARCO VAZ MA, ANEL Unavailable Unavailable MIGDALIA VAZ MA, HARRIS Flaherty Unavailable Unavailable Unavailable Unavailable Functional Status Name [...] 13-Oct-2019 [N] 2D Echo complete, with Doppler [id number] Date: 13-Oct-2019 History of Hernia Repair Completed History of Cholecystectomy Completed History of Percutaneous Vertebral Augmentation Kyphoplasty Completed 12-Apr-2018 Immunization Name Dates Details Tdap on: Sep-2001 Influenza on: 27-Jun-2012 Fluzone INJ Lot #: [id number] on: 05-Jun-2013 Fluzone INJ on: 06-Jun-2014 Fluzone INJ on: 21-May-2015 Prevnar 13 Intramuscular Suspension Lot #: [id number] on: 28-Jun-2015 Fluzone Quadrivalent 0.5 ML Intramuscular Suspension Prefilled Syringe Lot #: [id number] on: 12-May-2016 Pneumovax 23 25 MCG/0.5ML Injection Injectable Lot #: [id number] on: 08-Jul-2016 Fluzone Quadrivalent 0.5 ML Intramuscular Suspension Prefilled Syringe Lot #: [id number] on: 18-May-2017 Fluzone Quadrivalent 0.5 ML Intramuscular Suspension Prefilled Syringe Lot #: [id number] on: 11-May-2018 Tdap (Boostrix) Lot #: [id number] on: 02-Aug-2018 Fluzone High-Dose 0.5 ML Intramuscular Suspension Prefilled Syringe Lot #: [id number] on: 14-Jun-2019 Family History Name Dates Details [...] RA Results Date Description Value Details :45 [[facility]] LIPID PANEL CHOLESTEROL, TOTAL 159 mg/dl (Normal) [...] LDL-C. Missael REID et al. LUIS. 2013;310(19): 0936-8915 (http:/ /education.Only [employer].com/faq/JZC157) CHOL/HDLC RATIO 3.2 {CALC} (Normal) Range: <5.0 NON HDL CHOLESTEROL 109 {MG/DL__CAL} (Normal) Range: <130 Comments: For patients with diabetes plus 1 major ASCVD risk factor, treating to a non-HDL-C goal of <100 mg/dL (LDL-C of <70 mg/dL) is considered a therapeutic option. :45 [[facility]] URIC ACID URIC ACID 8.4 mg/dl (Above [...] is approximately 13% higher for peopleidentified as -[place]. eGFR NON- 59 {ML/MIN/1.7} (Below low threshold) [...] 10-35 ALT 16 u/l (Normal) Range: 9-46 [id number]-Glm-[id number]:45 [Q] B2 GLYCOPROTEIN I (IGM)AB Comments: REPORT [...] Goals not documented Planned Encounters Home Health Therapy Referral Appointment; BRAULIO GRANT D.O. On: 26-Oct-2019 [...] documented On: 20-Apr-2018 15:00 Appointment; KVNG SANTANA APRN Encounter Diagnosis: Problem not documented On: 11-May-2018 13:00 Appointment; BRENDAN PAREKH Encounter Diagnosis: Problem not documented On: 29-Jun-2018 15:00 Appointment; LOUIS MORILLO M.D. Encounter Diagnosis: Problem not documented On: 04-Jul-2018 13:20 Appointment; BRAULIO GRANT D.O. Encounter Diagnosis: Problem not documented On: 02-Aug-2018 13:00 Appointment; LOVE CONTEH P.A. Encounter Diagnosis: Problem not documented On: 01-Sep-2018 11:15 Appointment; VENITA PARSONS APRN Encounter Diagnosis: Problem not documented On: 03-Nov-2018 [...] Problem not documented On: 18-May-2019 14:00 [facility] Encounter Diagnosis: Problem not documented On: 23-May-2019 [...]
--- OUTSIDE RECORDS SUMMARY | 2019-12-08 23:03 | XMS REPORT | Summary of Care ---
Author Author [facility] Address [address] [place] [address] Phone Unavailable Care Team Providers Care Frame Tender Name Role Phone JUANITA Castaneda, BRAULIO Unavailable [...] MARCO VAZ [place], ANEL Unavailable Unavailable MIGDALIA VZA [place], HARRIS A Unavailable Unavailable Unavailable Unavailable [...] 13-Oct-2019 [N] 2D Echo complete, with Doppler [id number] Date: 13-Oct-2019 History of Hernia Repair Completed History of Cholecystectomy Completed History of Percutaneous Vertebral Augmentation Kyphoplasty Completed 12-Apr-2018 Immunization Name Dates Details Tdap on: Sep-2001 Influenza on: 27-Jun-2012 Fluzone INJ Lot #: [id number] on: 05-Jun-2013 Fluzone INJ on: 06-Jun-2014 Fluzone INJ on: 21-May-2015 Prevnar 13 Intramuscular Suspension Lot #: [id number] on: 28-Jun-2015 Fluzone Quadrivalent 0.5 ML Intramuscular Suspension Prefilled Syringe Lot #: [id number] on: 12-May-2016 Pneumovax 23 25 MCG/0.5ML Injection Injectable Lot #: [id number] on: 08-Jul-2016 Fluzone Quadrivalent 0.5 ML Intramuscular Suspension Prefilled Syringe Lot #: [id number] on: 18-May-2017 Fluzone Quadrivalent 0.5 ML Intramuscular Suspension Prefilled Syringe Lot #: [id number] on: 11-May-2018 Tdap (Boostrix) Lot #: [id number] on: 02-Aug-2018 Fluzone High-Dose 0.5 ML Intramuscular Suspension Prefilled Syringe Lot #: [id number] on: 14-Jun-2019 Family History Name Dates Details [...] Date Description Value Details :45 [[facility]] LIPID PANEL CHOLESTEROL, TOTAL 159 [...] LDL-C. Missael REID et al. LUIS. 2013;310(19): 5232-0307 (http:/ /education.Fliptu.com/faq/LPF922) CHOL/HDLC RATIO 3.2 {CALC} (Normal) Range: <5.0 NON HDL CHOLESTEROL 109 {MG/DL__CAL} (Normal) Range: <130 Comments: For patients with diabetes plus 1 major ASCVD risk factor, treating to a non-HDL-C goal of <100 mg/dL (LDL-C of <70 mg/dL) is considered a therapeutic option. :45 [[facility]] URIC ACID URIC ACID 8.4 [...] is approximately 13% higher for peopleidentified as -[place]. eGFR NON- 59 {ML/MIN/1.7} (Below low threshold) [...] 10-35 ALT 16 u/l (Normal) Range: 9-46 [id number]-Ict-[id number]:45 [Q] B2 GLYCOPROTEIN I (IGM)AB Comments: REPORT [...] documented On: 20-Apr-2018 15:00 Appointment; KVNG SANTANA ELECTRICAL LINE SPLICER Encounter Diagnosis: Problem not documented On: 11-May-2018 13:00 Appointment; BRENDAN PAREKH Encounter Diagnosis: Problem not documented On: 29-Jun-2018 15:00 Appointment; LOUIS MORILLO M.D. Encounter Diagnosis: Problem not documented On: 04-Jul-2018 13:20 Appointment; BRAULIO GRANT D.O. Encounter Diagnosis: Problem not documented On: 02-Aug-2018 13:00 Appointment; LOVE CONTEH P.A. Encounter Diagnosis: Problem not documented On: 01-Sep-2018 11:15 Appointment; VENITA PARSONS, ELECTRICAL LINE SPLICER Encounter Diagnosis: Problem not documented On: 03-Nov-2018 [...] 18-May-2019 14:00 Appointment; [facility] Encounter Diagnosis: Problem not documented On: 23-May-2019 [...]
--- OUTSIDE RECORDS SUMMARY | 2019-12-08 23:03 | XMS REPORT | Summary of Care ---
Author Author Diana Ruelas M.A. Organization Unknown Address [facility] Phone Unavailable Care Team Providers Care Mirror Silverer Name Role Phone Diana Ruelas M.A. Unavailable Unavailable JUANITA Castaneda, BRAULIO Unavailable Unavailable MIGDALIA Garcia, HARRIS Unavailable Unavailable ILIA Garcia, LOUIS Unavailable Unavailable MARÍA VAZ [place], DASHAWN ROBERSON Unavailable Unavailable Rolan VAZ, Iftikhar Unavailable Unavailable DANNY VAZ [place], FREDY Unavailable Unavailable JUANITA MALDONADO [place], BRAULIO Unavailable Unavailable ILIA VAZ, LOUIS Unavailable Unavailable JAQUELINE HUA, VENITA Unavailable Unavailable KESHIA VAZ, MIKKI Schafer Unavailable Unavailable MARÍA Garcia, DASHAWN Unavailable Unavailable WERO GOODWIN, LOVE Unavailable Unavailable MARCO VAZ [place], ANEL Unavailable Unavailable MIGDALIA VAZ [place], HARRIS A Unavailable Unavailable Unavailable Unavailable Functional [...] 13-Oct-2019 [N] 2D Echo complete, with Doppler [id number] Date: 13-Oct-2019 History of Hernia Repair Completed History of Cholecystectomy Completed History of Percutaneous Vertebral Augmentation Kyphoplasty Completed 12-Apr-2018 Immunization Name Dates Details Tdap on: Sep-2001 Influenza on: 27-Jun-2012 Fluzone INJ Lot #: [id number] on: 05-Jun-2013 Fluzone INJ on: 06-Jun-2014 Fluzone INJ on: 21-May-2015 Prevnar 13 Intramuscular Suspension Lot #: [id number] on: 28-Jun-2015 Fluzone Quadrivalent 0.5 ML Intramuscular Suspension Prefilled Syringe Lot #: [id number] on: 12-May-2016 Pneumovax 23 25 MCG/0.5ML Injection Injectable Lot #: [id number] on: 08-Jul-2016 Fluzone Quadrivalent 0.5 ML Intramuscular Suspension Prefilled Syringe Lot #: [id number] on: 18-May-2017 Fluzone Quadrivalent 0.5 ML Intramuscular Suspension Prefilled Syringe Lot #: [id number] on: 11-May-2018 Tdap (Boostrix) Lot #: [id number] on: 02-Aug-2018 Fluzone High-Dose 0.5 ML Intramuscular Suspension Prefilled Syringe Lot #: [id number] on: 14-Jun-2019 Family History Name Dates Details [...] RA Results Date Description Value Details :45 [[facility]] LIPID PANEL CHOLESTEROL, TOTAL 159 mg/dl (Normal) [...] LDL-C. Missael REID et al. LUIS. 2013;310(19): 5179-2084 (http:/ /education.[employer]/faq/TFI668) CHOL/HDLC RATIO 3.2 {CALC} (Normal) Range: <5.0 NON HDL CHOLESTEROL 109 {MG/DL__CAL} (Normal) Range: <130 Comments: For patients with diabetes plus 1 major ASCVD risk factor, treating to a non-HDL-C goal of <100 mg/dL (LDL-C of <70 mg/dL) is considered a therapeutic option. :45 [[facility]] URIC ACID URIC ACID 8.4 mg/dl (Above high threshold) Range: 4.0-8.0 Comments: Therapeutic target for gout patients: <6.0 mg/dL :45 [[facility]] CMP W/EGFR GLUCOSE 87 mg/dl (Normal) Range: 65-99 Comments: Fasting reference interval UREA NITROGEN (BUN) 26 mg/dl (Above high threshold) Range: 7-25 CREATININE 1.20 mg/dl (Above high threshold) Range: 0.70-1.18 Comments: For patients >49 years of age, the reference limitfor Creatinine is approximately 13% higher for peopleidentified as -[place] Islander. eGFR NON- 59 {ML/MIN/1.7} (Below low threshold) [...] 10-35 ALT 16 u/l (Normal) Range: 9-46 [id number] [Q] B2 GLYCOPROTEIN I (IGM)AB Comments: REPORT [...] Appointment; FREDY DELGADO M.D. On: 19-Apr-2020 11:00 Interventions Provided Follow-ups/Referrals* Home Health Therapy Referral; Done: 25 Oct 2019 Instructions Name Dates Details Instructions [...] Problem not documented On: 18-May-2019 14:00 Appointment; [facility] Encounter Diagnosis: Problem not [...] Problem not documented On: 13-Oct-2019 15:40 Appointment; [facility] Encounter Diagnosis: Problem not documented On: 17-Oct-2019 14:00
--- OUTSIDE RECORDS SUMMARY | 2019-12-08 23:03 | XMS REPORT | Summary of Care ---
Author Author Jessenia Priest, Diana Jordan Unknown Address [facility] Phone Unavailable Care Team Providers Care Curriculum Coordinator Name Role Phone JUANITA Castaneda, BRAULIO Unavailable Unavailable MIGDALIA Garcia, HARRIS Unavailable Unavailable ILIA Garcia, LOUIS Unavailable Unavailable MARÍA VAZ [place], DASHAWN ROBERSON Unavailable Unavailable Rolan VAZ, Iftikhar Unavailable Unavailable DANNY VAZ [place], FREDY Unavailable Unavailable JUANITA MALDONADO [place], BRAULIO Unavailable Unavailable ILIA VAZ, LOUIS Unavailable Unavailable JAQUELINE HUA, VENITA Unavailable Unavailable KESHIA VAZ, MIKKI Schafer Unavailable Unavailable MARÍA Garcia, DASHAWN Unavailable Unavailable WERO GOODWIN, LOVE Unavailable Unavailable MARCO VAZ [place], ANEL Unavailable Unavailable MIGDALIA VAZ [place], HARRIS A Unavailable Unavailable Unavailable Unavailable Functional [...] 13-Oct-2019 [N] 2D Echo complete, with Doppler [id number] Date: 13-Oct-2019 History of Hernia Repair Completed History of Cholecystectomy Completed History of Percutaneous Vertebral Augmentation Kyphoplasty Completed 12-Apr-2018 Immunization Name Dates Details Tdap on: Sep-2001 Influenza on: 27-Jun-2012 Fluzone INJ Lot #: [id number] on: 05-Jun-2013 Fluzone INJ on: 06-Jun-2014 Fluzone INJ on: 21-May-2015 Prevnar 13 Intramuscular Suspension Lot #: [id number] on: 28-Jun-2015 Fluzone Quadrivalent 0.5 ML Intramuscular Suspension Prefilled Syringe Lot #: [id number] on: 12-May-2016 Pneumovax 23 25 MCG/0.5ML Injection Injectable Lot #: [id number] on: 08-Jul-2016 Fluzone Quadrivalent 0.5 ML Intramuscular Suspension Prefilled Syringe Lot #: [id number] on: 18-May-2017 Fluzone Quadrivalent 0.5 ML Intramuscular Suspension Prefilled Syringe Lot #: [id number] on: 11-May-2018 Tdap (Boostrix) Lot #: [id number] on: 02-Aug-2018 Fluzone High-Dose 0.5 ML Intramuscular Suspension Prefilled Syringe Lot #: [id number] on: 14-Jun-2019 Family History Name Dates Details [...] Results Date Description Value Details :45 [[facility]] LIPID PANEL CHOLESTEROL, TOTAL 159 mg/dl [...] LDL-C. Missael REID et al. LUIS. 2013;310(19): 2950-9340 (http:/ / /faq/DZK687) CHOL/HDLC RATIO 3.2 {CALC} (Normal) Range: <5.0 NON HDL CHOLESTEROL 109 {MG/DL__CAL} (Normal) Range: <130 Comments: For patients with diabetes plus 1 major ASCVD risk factor, treating to a non-HDL-C goal of <100 mg/dL (LDL-C of <70 mg/dL) is considered a therapeutic option. :45 [[facility]] URIC ACID URIC ACID 8.4 mg/dl [...] is approximately 13% higher for peopleidentified as -[place]. eGFR NON- 59 {ML/MIN/1.7} (Below low threshold) [...] 10-35 ALT 16 u/l (Normal) Range: 9-46 [id number] [Q] B2 GLYCOPROTEIN I (IGM)AB Comments: REPORT [...] documented On: 20-Apr-2018 15:00 Appointment; KVNG SANTANA BUSINESS SERVICES ADMINISTRATOR Encounter Diagnosis: Problem not documented On: 11-May-2018 [...] not documented On: 01-Dec-2018 14:45 Appointment; BRAULIO RGANT D.O. Encounter Diagnosis: Problem [...] Problem not documented On: 18-May-2019 14:00 Appointment; [facility] Encounter Diagnosis: Problem not [...]
--- OUTSIDE RECORDS SUMMARY | 2019-12-08 23:04 | XMS REPORT | Summary of Care ---
Author Author JUANITA Castaneda, BRAULIO Organization Unknown Address Unknown Phone Unavailable Care Team Providers Care Kettle Fry Cook Operator Name Role Phone JUANITA Castaneda, BRAULIO [...] Essential (primary) hypertension (401.9, I10) Status: Active Fall at home (E888.9, W19.XXXA) Status: Active Medications Name Dates Details Multivitamins [...] * Quantity: 90 Refills: 1 YEH D.O., MARLYNMJ * Start : 29-Mar-2018 Active Fluticasone Propionate 50 MCG/ACT Nasal Suspension USE 2 SPRAYS IN EACH NOSTRIL ONCE DAILY * Quantity: 1 Refills: 5 YEH D.O.BRAULIO * Start : 02-Aug-2018 Active 16 GM Bottle Ventolin HFA 108 (90 Base) MCG/ACT Inhalation Aerosol Solution INHALE 1 TO 2 PUFFS BY MOUTH EVERY 4 TO 6 HOURS NEEDED * Quantity: 1 Refills: 5 YEH D.OBRAULIO [place] * Start : 13-Dec-2018 Active 18 GM [...] Z87.19) Status: Resolved History of biliary colic (V1., Z87.19) Status: Resolved History of Cholecystostomy care (V55.4, Z43.4) Status: Resolved History of cholelithiasis (V179, Z87.19) Status: Resolved History of chronic cholecystitis (V1.79, Z87.19) Status: Resolved History of Contusion of rib on right side (922.1, S20.211A) Status: Resolved History of diarrhea (V12.79, Z87.898) Status: Resolved History of diverticulitis (V12.70, Z87.19) Status: Resolved History of essential hypertension (V12.59, Z86.79) Status: Resolved History of Gallstone pancreatitis (577.0, [...] 13-Oct-2019 [N] 2D Echo complete, with Doppler 35541 Date: 13-Oct-2019 History of Hernia Repair Completed History of Cholecystectomy Completed History of Percutaneous Vertebral Augmentation Kyphoplasty Completed 12-Apr-2018 Immunization Name Dates Details Tdap on: Sep-2001 Influenza on: 27-Jun-2012 Fluzone INJ Lot #: [id number] on: 05-Jun-2013 Fluzone INJ on: 06-Jun-2014 Fluzone INJ on: 21-May-2015 Prevnar 13 Intramuscular Suspension Lot #: [id number] on: 28-Jun-2015 Fluzone Quadrivalent 0.5 ML Intramuscular Suspension Prefilled Syringe Lot #: [id number] on: 12-May-2016 Pneumovax 23 25 MCG/0.5ML Injection Injectable Lot #: [id number] on: 08-Jul-2016 Fluzone Quadrivalent 0.5 ML Intramuscular Suspension Prefilled Syringe Lot #: [id number] on: 18-May-2017 Fluzone Quadrivalent 0.5 ML Intramuscular Suspension Prefilled Syringe Lot #: [id number] on: 11-May-2018 Tdap (Boostrix) Lot #: [id number] on: 02-Aug-2018 Fluzone High-Dose 0.5 ML Intramuscular Suspension Prefilled Syringe Lot #: [id number] on: 14-Jun-2019 Family History Name Dates Details [...] smoker Vital Signs Date Test Result Details :41 BP Systolic 134 mm[Hg] Status: Comments: Location: LUE; Position: Sitting BP Diastolic 82 mm[Hg] Status: Comments: Location: LUE; Position: Sitting Height 70 in Status: Weight 215 lb Status: Body Mass Index Calculated 30.85 kg/m2 Status: Body Surface Area Calculated 2.15 m2 Status: Temperature 97.9 f Status: Comments: Method: Tympanic Respiration Rate 16 /min Status: Heart Rate 60 /min Status: :26 BP Systolic 151 mm[Hg] Status: Comments: Location: LUE; Position: Sitting BP Diastolic 65 mm[Hg] Status: Comments: Location: LUE; Position: Sitting Height 70 in Status: Weight 218 lb Status: Body Mass Index Calculated 31.28 kg/m2 Status: Body Surface Area Calculated 2.17 m2 Status: Respiration Rate 16 /min Status: Heart Rate 61 /min Status: Comments: Location: L Brachial Artery; O2 SAT 92 % Status: Comments: Source: RA Results Date Description Value Details :45 [[facility]] LIPID PANEL CHOLESTEROL, TOTAL 159 [...] LDL-C. Missael REID et al. LUIS. 2013;310(19): 0311-9043 (http:/ [email or web address]) CHOL/HDLC RATIO 3.2 {CALC} (Normal) Range: <5.0 NON HDL CHOLESTEROL 109 {MG/DL__CAL} (Normal) Range: <130 Comments: For patients with diabetes plus 1 major ASCVD risk factor, treating to a non-HDL-C goal of <100 mg/dL (LDL-C of <70 mg/dL) is considered a therapeutic option. :45 [[facility]] URIC ACID URIC ACID 8.4 [...] is approximately 13% higher for peopleidentified as -Tanzanian. eGFR NON- 59 {ML/MIN/1.7} (Below low threshold) [...] 10-35 ALT 16 u/l (Normal) Range: 9-46 [id number]-Wmn-[id number]:45 [Q] B2 GLYCOPROTEIN I (IGM)AB Comments: REPORT [...] documented Planned Encounters Home Health Referral Appointment; LOUIS MORILLO M.D. On: 30-Oct-2019 13:20 Appointment; KENZIE TONY On: 12-Apr-2020 13:00 Appointment; IFTIKHAR YI M.D. On: 12-Apr-2020 14:00 Appointment; FREDY DELGADO M.D. On: 19-Apr-2020 11:00 Interventions Provided Supplies* WHEELCHAIR; To Be Done: 26 Oct 2019 Instructions Name Dates Details Instructions [...] not documented On: 23-Dec-2018 14:15 Appointment; BRAULIO RGANT D.O. Encounter Diagnosis: Problem [...] Problem not documented On: 18-May-2019 14:00 Appointment; [facility] Encounter Diagnosis: Problem not documented On: [...] Problem not documented On: 18-Aug-2019 11:00 Appointment; NATOLIN TONY Encounter Diagnosis: Problem not documented On: 13-Oct-2019 14:30 Appointment; IFTIKHAR YI M.D. Encounter Diagnosis: Problem not documented On: 13-Oct-2019 15:40 Appointment; [facility] Encounter Diagnosis: Problem not documented On: 17-Oct-2019 14:00 Appointment; BRAULIO GRANT D.O. Encounter Diagnosis: Problem not documented On: 26-Oct-2019 14:45
--- OUTSIDE RECORDS SUMMARY | 2019-12-08 23:04 | XMS REPORT | Summary of Care ---
Author Author Nery Gautam R.N. Unknown Address [facility] Phone Unavailable Care Team Providers Care Tower Equipment Installer Name Role Phone Dain Valentin, Nery Unavailable Unavailable JUANITA Gaines.OSantiago, BRAULIO Unavailable Unavailable MIGDALIA Garcia, HARRIS Unavailable Unavailable ILIA Garcia, LOIUS Unavailable Unavailable MARÍA VAZ [place], DASHAWN ROBERSON Unavailable Unavailable Rolan VAZ, Iftikhar Unavailable Unavailable DANNY AVZ [place], FREDY Unavailable Unavailable JUANITA MALDONADO [place], BRAULIO Unavailable Unavailable ILIA VAZ, LOUIS Unavailable Unavailable JAQUELINE HENRYP, VENITA Unavailable Unavailable KESHIA VAZ, MIKKI S Unavailable Unavailable MARÍA Garcia, DASHAWN Unavailable Unavailable WERO GOODWIN, LOVE Unavailable Unavailable MARCO VAZ [place], ANEL Unavailable Unavailable MIGDALIA VAZ [place], HARRIS A Unavailable Unavailable Unavailable Unavailable Functional [...] 13-Oct-2019 [N] 2D Echo complete, with Doppler 11824 Date: 13-Oct-2019 History of Hernia Repair Completed History of Cholecystectomy Completed History of Percutaneous Vertebral Augmentation Kyphoplasty Completed 12-Apr-2018 Immunization Name Dates Details Tdap on: Sep-2001 Influenza on: 27-Jun-2012 Fluzone INJ Lot #: [id number] on: 05-Jun-2013 Fluzone INJ on: 06-Jun-2014 Fluzone INJ on: 21-May-2015 Prevnar 13 Intramuscular Suspension Lot #: [id number] on: 28-Jun-2015 Fluzone Quadrivalent 0.5 ML Intramuscular Suspension Prefilled Syringe Lot #: [id number] on: 12-May-2016 Pneumovax 23 25 MCG/0.5ML Injection Injectable Lot #: [id number] on: 08-Jul-2016 Fluzone Quadrivalent 0.5 ML Intramuscular Suspension Prefilled Syringe Lot #: [id number] on: 18-May-2017 Fluzone Quadrivalent 0.5 ML Intramuscular Suspension Prefilled Syringe Lot #: [id number] on: 11-May-2018 Tdap (Boostrix) Lot #: [id number] on: 02-Aug-2018 Fluzone High-Dose 0.5 ML Intramuscular Suspension Prefilled Syringe Lot #: [id number] on: 14-Jun-2019 Family History Name Dates Details [...] Date Description Value Details :45 [[facility]] LIPID PANEL CHOLESTEROL, TOTAL 159 mg/dl [...] LDL-C. Missael REID et al. LUIS. 2013;310(19): 7923-7403 (http:/ /education.[email or web address]/faq/VXX149) CHOL/HDLC RATIO 3.2 {CALC} (Normal) Range: <5.0 NON HDL CHOLESTEROL 109 {MG/DL__CAL} (Normal) Range: <130 Comments: For patients with diabetes plus 1 major ASCVD risk factor, treating to a non-HDL-C goal of <100 mg/dL (LDL-C of <70 mg/dL) is considered a therapeutic option. :45 [[facility]] URIC ACID URIC ACID 8.4 mg/dl [...] is approximately 13% higher for peopleidentified as -Jamaican. eGFR NON- 59 {ML/MIN/1.7} (Below low threshold) [...] 10-35 ALT 16 u/l (Normal) Range: 9-46 [id number]-Dgt-[id number]:45 [Q] B2 GLYCOPROTEIN I (IGM)AB Comments: REPORT [...] Problem not documented On: 18-May-2019 14:00 [facility] Encounter Diagnosis: Problem not documented On: 23-May-2019 [...]
--- OUTSIDE RECORDS SUMMARY | 2019-12-08 23:04 | XMS REPORT | Summary of Care ---
Author Author [facility] Address [address] [place] [address] Phone Unavailable Care Team Providers Care Welding Technician Name Role Phone JUANITA Castaneda, BRAULIO Unavailable Unavailable MIGDALIA Garcia, HARRIS Unavailable Unavailable ILIA Garcia, LOUIS Unavailable Unavailable MARÍA VAZ [place], DASHAWN ROBERSON Unavailable Unavailable Rolan VAZ, Iftikhar Unavailable Unavailable DANNY VAZ [place], FREDY Unavailable Unavailable JUANITA MALDONADO [place], BRAULIO Unavailable Unavailable ILIA VAZ, LOUIS Unavailable Unavailable JAQUELINE HUA, VENITA Unavailable Unavailable KESHIA VAZ, MIKKI Schafer Unavailable Unavailable MARÍA Garcia, DASHAWN Unavailable Unavailable WERO GOODWIN, LOVE Unavailable Unavailable MARCO VAZ [place], ANEL Unavailable Unavailable MIGDALIA VAZ [place], HARRIS A Unavailable Unavailable Unavailable Unavailable Functional [...] Active Atrial dilatation (429.3, I51.7) Status: Active Psoriasis (696.1, L40.9) Status: Active [...] valve clip implantation (V45.89, Z98.890) Status: Active Impaired fasting glucose (790.21, R73.01) Status: Active Hyperlipidemia (272.4, E78.5) Status: Active Mitral regurgitation (424.0, I34.0) Status: Active PVC (premature ventricular contraction) (427.69, I49.3) Status: Active Back pain (724.5, M54.9) Status: Active Thumb pain (729.5, M79.646) Status: Active Shoulder pain, left (719.41, M25.512) Status: Active At moderate risk for fall (V15.88, Z91.81) Status: Active Essential (primary) hypertension (401.9, I10) Status: Active Atrial fibrillation (427.31, I48.91) Status: Active Fall at home (E888.9, W19.XXXA) Status: Active CHF (congestive heart failure) (428.0, I50.9) Status: Active CKD (chronic kidney disease) stage 3, GFR 30-59 ml/min (585.3, N18.3) Status: Active COPD, 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, 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 BPH associated with nocturia (600.01, N40.1) Status: Active Medications Name Dates Details Multivitamins [...] * Quantity: 90 Refills: 1 YEH D.O., KARINA-MJ * Start : 29-Mar-2018 Active Fluticasone Propionate [...] 13-Oct-2019 [N] 2D Echo complete, with Doppler 39585 Date: 13-Oct-2019 History of Hernia Repair Completed History of Cholecystectomy Completed History of Percutaneous Vertebral Augmentation Kyphoplasty Completed 12-Apr-2018 Immunization Name Dates Details Tdap on: Sep-2001 Influenza on: 27-Jun-2012 Fluzone INJ Lot #: [id number] on: 05-Jun-2013 Fluzone INJ on: 06-Jun-2014 Fluzone INJ on: 21-May-2015 Prevnar 13 Intramuscular Suspension Lot #: [id number] on: 28-Jun-2015 Fluzone Quadrivalent 0.5 ML Intramuscular Suspension Prefilled Syringe Lot #: [id number] on: 12-May-2016 Pneumovax 23 25 MCG/0.5ML Injection Injectable Lot #: [id number] on: 08-Jul-2016 Fluzone Quadrivalent 0.5 ML Intramuscular Suspension Prefilled Syringe Lot #: [id number] on: 18-May-2017 Fluzone Quadrivalent 0.5 ML Intramuscular Suspension Prefilled Syringe Lot #: [id number] on: 11-May-2018 Tdap (Boostrix) Lot #: [id number] on: 02-Aug-2018 Fluzone High-Dose 0.5 ML Intramuscular Suspension Prefilled Syringe Lot #: [id number] on: 14-Jun-2019 Family History Name Dates Details [...] LDL-C. Missael REID et al. LUIS. 2013;310(19): 1141-9799 (http:/ /[email or web address]/faq/[email or web address]) CHOL/HDLC RATIO 3.2 {CALC} (Normal) Range: <5.0 NON HDL CHOLESTEROL 109 {MG/DL__CAL} (Normal) Range: <130 Comments: For patients with diabetes plus 1 major ASCVD risk factor, treating to a non-HDL-C goal of <100 mg/dL (LDL-C of <70 mg/dL) is considered a therapeutic option. :45 [[facility]] URIC ACID URIC ACID 8.4 mg/dl [...] is approximately 13% higher for peopleidentified as -Cypriot. eGFR NON- 59 {ML/MIN/1.7} (Below low threshold) [...] 10-35 ALT 16 u/l (Normal) Range: 9-46 18-Esb-186067:45 [Q] B2 GLYCOPROTEIN I (IGM)AB Comments: REPORT [...] not documented On: 01-Sep-2018 11:15 Appointment; VENITA PARSOSN APRN Encounter Diagnosis: Problem not documented On: [...] Problem not documented On: 18-May-2019 14:00 Appointment; [facility] Encounter Diagnosis: Problem not documented On: [...]
--- OUTSIDE RECORDS SUMMARY | 2019-12-08 23:04 | XMS REPORT | Summary of Care ---
Author Author Nery Gautam R.N. Unknown Address [facility] Phone Unavailable Care Team Providers Care Crosstie Inspector Name Role Phone DANNY Garcia, FREDY Unavailable Unavailable JUANITA Gaines.OSantiago, BRAULIO Unavailable Unavailable [...] 13-Oct-2019 [N] 2D Echo complete, with Doppler 62254 Date: 13-Oct-2019 History of Hernia Repair Completed History of Cholecystectomy Completed History of Percutaneous Vertebral Augmentation Kyphoplasty Completed 12-Apr-2018 Immunization Name Dates Details Tdap on: Sep-2001 Influenza on: 27-Jun-2012 Fluzone INJ Lot #: [id number] on: 05-Jun-2013 Fluzone INJ on: 06-Jun-2014 Fluzone INJ on: 21-May-2015 Prevnar 13 Intramuscular Suspension Lot #: [id number] on: 28-Jun-2015 Fluzone Quadrivalent 0.5 ML Intramuscular Suspension Prefilled Syringe Lot #: [id number] on: 12-May-2016 Pneumovax 23 25 MCG/0.5ML Injection Injectable Lot #: [id number] on: 08-Jul-2016 Fluzone Quadrivalent 0.5 ML Intramuscular Suspension Prefilled Syringe Lot #: [id number] on: 18-May-2017 Fluzone Quadrivalent 0.5 ML Intramuscular Suspension Prefilled Syringe Lot #: [id number] on: 11-May-2018 Tdap (Boostrix) Lot #: [id number] on: 02-Aug-2018 Fluzone High-Dose 0.5 ML Intramuscular Suspension Prefilled Syringe Lot #: [id number] on: 14-Jun-2019 Family History Name Dates Details [...] Results Date Description Value Details :45 [[facility]] LIPID PANEL CHOLESTEROL, TOTAL 159 mg/dl [...] LDL-C. Missael REID et al. LUIS. 2013;310(19): 5193-6387 (http:/ /[email or web address]/faq/HUG088) CHOL/HDLC RATIO 3.2 {CALC} (Normal) Range: <5.0 NON HDL CHOLESTEROL 109 {MG/DL__CAL} (Normal) Range: <130 Comments: For patients with diabetes plus 1 major ASCVD risk factor, treating to a non-HDL-C goal of <100 mg/dL (LDL-C of <70 mg/dL) is considered a therapeutic option. :45 [[facility]] URIC ACID URIC ACID 8.4 [...] is approximately 13% higher for peopleidentified as -Dutch. eGFR NON- 59 {ML/MIN/1.7} (Below low threshold) [...] 10-35 ALT 16 u/l (Normal) Range: 9-46 03-Sqr-[id number]:45 [Q] B2 GLYCOPROTEIN I (IGM)AB Comments: REPORT [...] M.D. On: 19-Apr-2020 11:00 Interventions Provided Follow-ups/Referrals* Cardiology Referral; Done: 21 Jul 2019 Instructions Name Dates Details Instructions not [...] Problem not documented On: 12-May-2019 15:20 Appointment; LOUSI MORILLO M.D. Encounter Diagnosis: Problem not documented On: 18-May-2019 14:00 [facility] Encounter Diagnosis: Problem not documented On: [...]
--- OUTSIDE RECORDS SUMMARY | 2019-12-08 23:04 | XMS REPORT | Summary of Care ---
Author Author [facility] Address [address] [place] [address] Phone Unavailable Care Team Providers Care Group Insurance Special Agent Name Role Phone JUANITA Castaneda, BRAULIO Unavailable [...] 13-Oct-2019 [N] 2D Echo complete, with Doppler 95343 Date: 13-Oct-2019 History of Hernia Repair Completed History of Cholecystectomy Completed History of Percutaneous Vertebral Augmentation Kyphoplasty Completed 12-Apr-2018 Immunization Name Dates Details Tdap on: Sep-2001 Influenza on: 27-Jun-2012 Fluzone INJ Lot #: [id number] on: 05-Jun-2013 Fluzone INJ on: 06-Jun-2014 Fluzone INJ on: 21-May-2015 Prevnar 13 Intramuscular Suspension Lot #: [id number] on: 28-Jun-2015 Fluzone Quadrivalent 0.5 ML Intramuscular Suspension Prefilled Syringe Lot #: [id number] on: 12-May-2016 Pneumovax 23 25 MCG/0.5ML Injection Injectable Lot #: [id number] on: 08-Jul-2016 Fluzone Quadrivalent 0.5 ML Intramuscular Suspension Prefilled Syringe Lot #: [id number] on: 18-May-2017 Fluzone Quadrivalent 0.5 ML Intramuscular Suspension Prefilled Syringe Lot #: [id number] on: 11-May-2018 Tdap (Boostrix) Lot #: [id number] on: 02-Aug-2018 Fluzone High-Dose 0.5 ML Intramuscular Suspension Prefilled Syringe Lot #: [id number] on: 14-Jun-2019 Family History Name Dates Details [...] RA Results Date Description Value Details :45 [[facility]] LIPID PANEL CHOLESTEROL, TOTAL 159 mg/dl [...] LDL-C. Missael REID et al. LUIS. 2013;310(19): 8903-9737 (http:/ /education.[email or web address]/faq/DFL414) CHOL/HDLC RATIO 3.2 {CALC} (Normal) Range: <5.0 NON HDL CHOLESTEROL 109 {MG/DL__CAL} (Normal) Range: <130 Comments: For patients with diabetes plus 1 major ASCVD risk factor, treating to a non-HDL-C goal of <100 mg/dL (LDL-C of <70 mg/dL) is considered a therapeutic option. :45 [[facility]] URIC ACID URIC ACID 8.4 mg/dl [...] is approximately 13% higher for peopleidentified as -Gibraltarian. eGFR NON- 59 {ML/MIN/1.7} (Below low threshold) [...] 10-35 ALT 16 u/l (Normal) Range: 9-46 98-Pom-153828:45 [Q] B2 GLYCOPROTEIN I (IGM)AB Comments: REPORT [...] Problem not documented On: 11-May-2018 13:00 Appointment; [facility], [facility] Encounter Diagnosis: Problem not documented On: [...] On: 18-May-2019 14:00 Appointment; [facility] Encounter Diagnosis: Problem not documented On: [...]
--- OUTSIDE RECORDS SUMMARY | 2019-12-08 23:05 | XMS REPORT | Summary of Care ---
Author Author JUANITA Castaneda, BRAULIO Organization Unknown Address Unknown Phone Unavailable Care Team Providers Care Heel Sander Name Role Phone JUANITA Castaneda, BRAULIO Unavailable Unavailable MIGDALIA Garcia, HARRIS Unavailable Unavailable ILIA Garcia, LOUIS Unavailable Unavailable MARÍA VAZ ID, DASHAWN ROBERSON Unavailable Unavailable Rolan VAZ, Iftikhar Unavailable Unavailable DANNY VAZ ID, FREDY Unavailable Unavailable JUANITA MALDONADO ID, BRAULIO Unavailable Unavailable ILIA VAZ, LOUIS Unavailable Unavailable JAQUELINE HUA, VENITA Unavailable Unavailable KESHIA VAZ, MIKKI Schafer Unavailable Unavailable MARÍA Garcia, DASHAWN Unavailable Unavailable WERO GOODWIN, LOVE Unavailable Unavailable MARCO VAZ ID, ANEL Unavailable Unavailable MIGDALIA VAZ ID, HARRIS A Unavailable Unavailable Unavailable Unavailable Functional [...] 13-Oct-2019 [N] 2D Echo complete, with Doppler [id number] Date: 13-Oct-2019 History of Hernia Repair Completed History of Cholecystectomy Completed History of Percutaneous Vertebral Augmentation Kyphoplasty Completed 12-Apr-2018 Immunization Name Dates Details Tdap on: Sep-2001 Influenza on: 27-Jun-2012 Fluzone INJ Lot #: [id number] on: 05-Jun-2013 Fluzone INJ on: 06-Jun-2014 Fluzone INJ on: 21-May-2015 Prevnar 13 Intramuscular Suspension Lot #: [id number] on: 28-Jun-2015 Fluzone Quadrivalent 0.5 ML Intramuscular Suspension Prefilled Syringe Lot #: [id number] on: 12-May-2016 Pneumovax 23 25 MCG/0.5ML Injection Injectable Lot #: [id number] on: 08-Jul-2016 Fluzone Quadrivalent 0.5 ML Intramuscular Suspension Prefilled Syringe Lot #: [id number] on: 18-May-2017 Fluzone Quadrivalent 0.5 ML Intramuscular Suspension Prefilled Syringe Lot #: [id number] on: 11-May-2018 Tdap (Boostrix) Lot #: [id number] on: 02-Aug-2018 Fluzone High-Dose 0.5 ML Intramuscular Suspension Prefilled Syringe Lot #: [id number] on: 14-Jun-2019 Family History Name Dates Details [...] Date Description Value Details :45 [[facility]] LIPID PANEL CHOLESTEROL, TOTAL 159 [...] LDL-C. Missael REID et al. LUIS. 2013;310(19): 6672-7067 (http:/ [email or web address]/faq/[email or web address]) CHOL/HDLC RATIO 3.2 {CALC} (Normal) Range: <5.0 NON HDL CHOLESTEROL 109 {MG/DL__CAL} (Normal) Range: <130 Comments: For patients with diabetes plus 1 major ASCVD risk factor, treating to a non-HDL-C goal of <100 mg/dL (LDL-C of <70 mg/dL) is considered a therapeutic option. :45 [[facility]] URIC ACID URIC ACID 8.4 [...] is approximately 13% higher for peopleidentified as -Somali. eGFR NON- 59 {ML/MIN/1.7} (Below low threshold) [...] 10-35 ALT 16 u/l (Normal) Range: 9-46 [id number]:45 [Q] B2 GLYCOPROTEIN I (IGM)AB Comments: REPORT [...] WHEELCHAIR; To Be Done: 26 Oct 2019 Plan* Afib/CHF/s/p MR Repair/Debility/Falls - stable. Continue current regimen per cardiology. Home Health referred for physical therapy. Ordered Wheel Chair for long transport. Avoid salt * Low Back Pain - stable. Continue Tylenol #3. Follow-up with neurosurgery recommended when possible * Umbilical Hernia with chronic skin ulcer - stable. Hernia is present, but reducible. Refer Pt for wound care as I suspect the wound needs to be debrided to heal properly * HTN - stable. Continue to monitor * AFib - stable. Continue Warfarin. PT/INR ordered by cardiology * COPD - stable. Continue AFib. Discussed that ProAir can increase HR * CKD - stable. Continue to avoid nephrotoxins. Check BUN/Cr, may have to readjust diuretics. * Follow-up in 6 month, sooner if needed Instructions Name Dates Details Instructions not documented [...] Problem not documented On: 11-May-2018 13:00 [facility] Encounter Diagnosis: Problem not documented On: 29-Jun-2018 15:00 Appointment; LOUIS MORILLO M.D. Encounter Diagnosis: Problem not documented On: 04-Jul-2018 13:20 Appointment; BRAULIO GRANT D.O. Encounter Diagnosis: Problem not documented On: 02-Aug-2018 13:00 Appointment; LOVE CONTEH P.A. Encounter Diagnosis: Problem not documented On: 01-Sep-2018 11:15 Appointment; VENITA PARSONS APRN Encounter Diagnosis: Problem not documented On: 03-Nov-2018 10:00 Appointment; BRAULIO GARNT D.O. Encounter Diagnosis: Problem [...] not documented On: 12-Jan-2019 14:40 Appointment; IFTIKHAR IY M.D. Encounter Diagnosis: Problem [...] Problem not documented On: 18-May-2019 14:00 Appointment; [facility] Encounter Diagnosis: Problem not documented On: [...]
--- OUTSIDE RECORDS SUMMARY | 2019-12-08 23:05 | XMS REPORT | Summary of Care ---
Author Author [facility] Address [address] [place] [address] Phone Unavailable Care Team Providers Care Blueprint Reader Name Role Phone JUANITA Castaneda, BRAULIO Unavailable Unavailable MIGDALIA Garcia, HARRIS Unavailable Unavailable ILIA Garcia, LOUIS Unavailable Unavailable MARÍA VAZ ND, DASHAWN ROBERSON Unavailable Unavailable Rolan VAZ, Iftikhar Unavailable Unavailable DANNY VAZ ND, FREDY Unavailable Unavailable JUANITA MALDONADO ND, BRAULIO Unavailable Unavailable ILIA VAZ, LOUIS Unavailable Unavailable JAQUELINE HUA, VENITA Unavailable Unavailable EKSHIA VAZ, MIKKI Schafer Unavailable Unavailable MARÍA Garcia, DASHAWN Unavailable Unavailable WERO GOODWIN, LOVE Unavailable Unavailable MARCO VAZ ND, ANEL Unavailable Unavailable MIGDALIA VAZ ND, HARRIS A Unavailable Unavailable Unavailable Unavailable Functional [...] 13-Oct-2019 [N] 2D Echo complete, with Doppler 39574 Date: 13-Oct-2019 History of Hernia Repair Completed History of Cholecystectomy Completed History of Percutaneous Vertebral Augmentation Kyphoplasty Completed 12-Apr-2018 Immunization Name Dates Details Tdap on: Sep-2001 Influenza on: 27-Jun-2012 Fluzone INJ Lot #: [id number] on: 05-Jun-2013 Fluzone INJ on: 06-Jun-2014 Fluzone INJ on: 21-May-2015 Prevnar 13 Intramuscular Suspension Lot #: [id number] on: 28-Jun-2015 Fluzone Quadrivalent 0.5 ML Intramuscular Suspension Prefilled Syringe Lot #: [id number] on: 12-May-2016 Pneumovax 23 25 MCG/0.5ML Injection Injectable Lot #: [id number] on: 08-Jul-2016 Fluzone Quadrivalent 0.5 ML Intramuscular Suspension Prefilled Syringe Lot #: [id number] on: 18-May-2017 Fluzone Quadrivalent 0.5 ML Intramuscular Suspension Prefilled Syringe Lot #: [id number] on: 11-May-2018 Tdap (Boostrix) Lot #: [id number] on: 02-Aug-2018 Fluzone High-Dose 0.5 ML Intramuscular Suspension Prefilled Syringe Lot #: [id number] on: 14-Jun-2019 Family History Name Dates Details Family history of lung cancer (V16.1, Z80.1) Status: Active Name Dates Details Family history of Coronary artery disease (414.00, I25.10) Status: Active Family history of Aneurysm (442.9, I72.9) Status: Active Family history of Carotid artery disease (447.9, I73.9) Status: Active Social History Name Dates Details - Status: Name Dates Details Ex-smoker (finding) Ex-smoker (finding) Vital Signs Date Test Result Details :41 Systolic blood pressure 134 mm[Hg] Status: Comments: Location: LUE; Position: Sitting Diastolic blood pressure 82 mm[Hg] Status: Comments: Location: LUE; Position: Sitting Body height 70 in Status: Weight 215 lb Status: Body mass index (BMI) [Ratio] 30.85 kg/m2 Status: Body surface area Derived from formula 2.15 m2 Status: Body temperature 97.9 f Status: Comments: Method: Tympanic Respiratory rate 16 /min Status: Heart Rate 60 /min Status: :26 Systolic blood pressure 151 mm[Hg] Status: Comments: Location: LUE; Position: Sitting Diastolic blood pressure 65 mm[Hg] Status: Comments: Location: LUE; Position: Sitting Body height 70 in Status: Weight 218 lb Status: Body mass index (BMI) [Ratio] 31.28 kg/m2 Status: Body surface area Derived from formula 2.17 m2 Status: Respiratory rate 16 /min Status: Heart Rate 61 /min Status: Comments: Location: L Brachial Artery; O2 SAT 92 % Status: Comments: Source: RA Results Date Description Value Details :45 [QLH] LIPID PANEL CHOLESTEROL, TOTAL 159 mg/dl (Normal) [...] LDL-C. Missael REID et al. LUIS. 2013;310(19): 1409-9155 (http:/ /education.VANDOLAY/faq/PGX194) CHOL/HDLC RATIO 3.2 {CALC} (Normal) Range: <5.0 NON HDL CHOLESTEROL 109 {MG/DL__CAL} (Normal) Range: <130 Comments: For patients with diabetes plus 1 major ASCVD risk factor, treating to a non-HDL-C goal of <100 mg/dL (LDL-C of <70 mg/dL) is considered a therapeutic option. :45 [[facility]] URIC ACID URIC ACID 8.4 mg/dl [...] is approximately 13% higher for peopleidentified as -Algerian. eGFR NON- 59 {ML/MIN/1.7} (Below low threshold) [...] 10-35 ALT 16 u/l (Normal) Range: 9-46 [id number]-Aub-[id number]:45 [Q] B2 GLYCOPROTEIN I (IGM)AB Comments: REPORT [...] Planned Goals not documented Planned Encounters Appointment; KENZIE TONY On: 12-Apr-2020 13:00 Appointment; [...] Problem not documented On: 11-May-2018 13:00 [facility] Encounter Diagnosis: Problem not documented On: [...] Problem not documented On: 18-May-2019 14:00 Appointment; [facility] Encounter Diagnosis: Problem not documented On: [...] Diagnosis: Problem not documented On: 26-Oct-2019 14:45 Appointment; LOUIS MORILLO M.D. Encounter Diagnosis: Problem not documented On: 30-Oct-2019 13:20
--- OUTSIDE RECORDS SUMMARY | 2019-12-08 23:05 | XMS REPORT | Summary of Care ---
Author Author Arjun Priest, Diana Jordan Unknown Address [facility] Phone Unavailable Care Team Providers Care Coater Hand Name Role Phone JUANITA Castaneda, BRAULIO Unavailable [...] * Quantity: 90 Refills: 1 YEH D.O., NOHEMIN * Start : 29-Mar-2018 Active Fluticasone Propionate 50 MCG/ACT Nasal Suspension USE 2 SPRAYS IN EACH NOSTRIL ONCE DAILY * Quantity: 1 Refills: 5 YEH D.BRAULIO Ellis * Start : 02-Aug-2018 Active 16 GM Bottle Ventolin HFA 108 (90 Base) MCG/ACT Inhalation Aerosol Solution INHALE 1 TO 2 PUFFS BY MOUTH EVERY 4 TO 6 HOURS NEEDED * Quantity: 1 Refills: 5 YEH D.BRAULIO Ellis * Start : 13-Dec-2018 Active 18 GM Inhaler Diclofenac Sodium 1 % Transdermal Gel APPLY [...] 13-Oct-2019 [N] 2D Echo complete, with Doppler [id number] Date: 13-Oct-2019 History of Hernia Repair Completed History of Cholecystectomy Completed History of Percutaneous Vertebral Augmentation Kyphoplasty Completed 12-Apr-2018 Immunization Name Dates Details Tdap on: Sep-2001 Influenza on: 27-Jun-2012 Fluzone INJ Lot #: [id number] on: 05-Jun-2013 Fluzone INJ on: 06-Jun-2014 Fluzone INJ on: 21-May-2015 Prevnar 13 Intramuscular Suspension Lot #: [id number] on: 28-Jun-2015 Fluzone Quadrivalent 0.5 ML Intramuscular Suspension Prefilled Syringe Lot #: [id number] on: 12-May-2016 Pneumovax 23 25 MCG/0.5ML Injection Injectable Lot #: [id number] on: 08-Jul-2016 Fluzone Quadrivalent 0.5 ML Intramuscular Suspension Prefilled Syringe Lot #: [id number] on: 18-May-2017 Fluzone Quadrivalent 0.5 ML Intramuscular Suspension Prefilled Syringe Lot #: [id number] on: 11-May-2018 Tdap (Boostrix) Lot #: [id number] on: 02-Aug-2018 Fluzone High-Dose 0.5 ML Intramuscular Suspension Prefilled Syringe Lot #: [id number] on: 14-Jun-2019 Family History Name Dates Details [...] (finding) Vital Signs Date Test Result Details :48 Systolic blood pressure 130 mm[Hg] Status: Comments: Location: LUE; Position: Sitting Diastolic blood pressure 74 mm[Hg] Status: Comments: Location: LUE; Position: Sitting Body height 70 in Status: Weight 215 lb Status: Body mass index (BMI) [Ratio] 30.85 kg/m2 Status: Body surface area Derived from formula 2.15 m2 Status: Heart Rate 65 /min Status: Respiratory rate 16 /min Status: :41 Systolic blood pressure 134 mm[Hg] Status: Comments: Location: LUE; Position: Sitting Diastolic blood pressure 82 mm[Hg] Status: Comments: Location: LUE; Position: Sitting Body height 70 in Status: Weight 215 lb Status: Body mass index (BMI) [Ratio] 30.85 kg/m2 Status: Body surface area Derived from formula 2.15 m2 Status: Heart Rate 60 /min Status: Respiratory rate 16 /min Status: Body temperature 97.9 f Status: Comments: Method: Tympanic :26 Systolic blood pressure 151 mm[Hg] Status: Comments: Location: LUE; Position: Sitting Diastolic blood pressure 65 mm[Hg] Status: Comments: Location: LUE; Position: Sitting Body height 70 in Status: Weight 218 lb Status: Body mass index (BMI) [Ratio] 31.28 kg/m2 Status: Body surface area Derived from formula 2.17 m2 Status: Heart Rate 61 /min Status: Comments: Location: L Brachial Artery; Respiratory rate 16 /min Status: O2 SAT 92 % Status: Comments: Source: [...] risk factors. LDL-C is now calculated using daniel Payen calculation, which is a validated novel method providing better accuracy than the Friedewald equation in the estimation of LDL-C. Missael REID et al. LUIS. 2013;310(29): 7534-3594 (http:/ /Metwit.YouCastr/faq/YRY842) CHOL/HDLC RATIO 3.2 {CALC} (Normal) Range: <5.0 NON HDL CHOLESTEROL 109 {MG/DL__CAL} (Normal) Range: <130 Comments: For patients with diabetes plus 1 major ASCVD risk factor, treating to a non-HDL-C goal of <100 mg/dL (LDL-C of <70 mg/dL) is considered a therapeutic option. :45 [[facility]] URIC ACID URIC ACID 8.4 mg/dl (Above high threshold) Range: 4.0-8.0 Comments: Therapeutic target for gout patients: <6.0 mg/dL :45 [[facility]] CMP W/EGFR GLUCOSE 87 mg/dl (Normal) Range: 65-99 Comments: Fasting reference interval UREA NITROGEN (BUN) 26 mg/dl (Above high threshold) Range: 7-25 CREATININE 1.20 mg/dl (Above high threshold) Range: 0.70-1.18 Comments: For patients >49 years of age, the reference limitfor Creatinine is approximately 13% higher for peopleidentified as -Micronesian. eGFR NON- 59 {ML/MIN/1.7} (Below low threshold) [...] 10-35 ALT 16 u/l (Normal) Range: 9-46 64-Maq-248349:45 [Q] B2 GLYCOPROTEIN I (IGM)AB Comments: REPORT [...] Problem not documented On: 18-May-2019 14:00 Appointment; JOHN PAREKH Encounter Diagnosis: Problem not documented On: 23-May-2019 [...] Problem not documented On: 13-Oct-2019 15:40 Appointment; [facility] Encounter Diagnosis: Problem not documented On: 17-Oct-2019 14:00 Appointment; BRAULIO GRANT D.O. Encounter Diagnosis: Problem not documented On: 26-Oct-2019 14:45 Appointment; [facility] MORILLO M.D. Encounter Diagnosis: Problem not documented On: 30-Oct-2019 13:20
--- OUTSIDE RECORDS SUMMARY | 2019-12-08 23:05 | XMS REPORT | Summary of Care ---
Author Author Jessenia Priest, Diana Jordan Unknown Address [facility] Phone Unavailable Care Team Providers Care Drywall Finisher Foreman Name Role Phone JUANITA Castaneda, BRAULIO Unavailable [...] 13-Oct-2019 [N] 2D Echo complete, with Doppler [id number] Date: 13-Oct-2019 History of Hernia Repair Completed History of Cholecystectomy Completed History of Percutaneous Vertebral Augmentation Kyphoplasty Completed 12-Apr-2018 Immunization Name Dates Details Tdap on: Sep-2001 Influenza on: 27-Jun-2012 Fluzone INJ Lot #: [id number] on: 05-Jun-2013 Fluzone INJ on: 06-Jun-2014 Fluzone INJ on: 21-May-2015 Prevnar 13 Intramuscular Suspension Lot #: [id number] on: 28-Jun-2015 Fluzone Quadrivalent 0.5 ML Intramuscular Suspension Prefilled Syringe Lot #: [id number] on: 12-May-2016 Pneumovax 23 25 MCG/0.5ML Injection Injectable Lot #: [id number] on: 08-Jul-2016 Fluzone Quadrivalent 0.5 ML Intramuscular Suspension Prefilled Syringe Lot #: [id number] on: 18-May-2017 Fluzone Quadrivalent 0.5 ML Intramuscular Suspension Prefilled Syringe Lot #: [id number] on: 11-May-2018 Tdap (Boostrix) Lot #: [id number] on: 02-Aug-2018 Fluzone High-Dose 0.5 ML Intramuscular Suspension Prefilled Syringe Lot #: [id number] on: 14-Jun-2019 Family History Name Dates Details [...] LDL-C. Missael REID et al. LUIS. 2013;310(19): 8235-2593 (http:/ /education.OpenSpan/faq/SID061) CHOL/HDLC RATIO 3.2 {CALC} (Normal) Range: <5.0 NON HDL CHOLESTEROL 109 {MG/DL__CAL} (Normal) Range: <130 Comments: For patients with diabetes plus 1 major ASCVD risk factor, treating to a non-HDL-C goal of <100 mg/dL (LDL-C of <70 mg/dL) is considered a therapeutic option. :45 [[facility]] URIC ACID URIC ACID 8.4 [...] is approximately 13% higher for peopleidentified as -Cuban. eGFR NON- 59 {ML/MIN/1.7} (Below low threshold) [...] 10-35 ALT 16 u/l (Normal) Range: 9-46 [id number]-Vzy-[id number]:45 [Q] B2 GLYCOPROTEIN I (IGM)AB Comments: REPORT [...] 19-Apr-2020 11:00 Interventions Provided Follow-ups/Referrals* Home Health Referral; To Be Done: 26 Oct 2019 Supplies* WHEELCHAIR; To Be Done: 26 Oct [...] Problem not documented On: 11-May-2018 13:00 Appointment; [facility] Encounter Diagnosis: Problem not documented On: [...] not documented On: 24-Feb-2019 13:20 Appointment; BRAULIO GRATN D.O. Encounter Diagnosis: Problem not documented On: 29-Mar-2019 14:00 Appointment; LOUIS MORILLO M.D. Encounter Diagnosis: Problem not documented On: 06-Apr-2019 11:20 Appointment; [facility] Encounter Diagnosis: Problem not documented On: 11-Apr-2019 11:00 Appointment; BRAULIO GRANT D.O. Encounter Diagnosis: Problem not documented On: 05-May-2019 12:45 Appointment; [facility] Encounter Diagnosis: Problem not documented On: 12-May-2019 14:30 Appointment; IFTIKHAR YI M.D. Encounter Diagnosis: Problem not documented On: 12-May-2019 15:20 Appointment; LOUIS MORILLO M.D. Encounter Diagnosis: Problem not documented On: 18-May-2019 14:00 Appointment; [facility] Encounter Diagnosis: Problem not documented On: [...]
--- OUTSIDE RECORDS SUMMARY | 2019-12-08 23:06 | XMS REPORT | Summary of Care ---
Author Author Lacey Burroughs Organization Unknown Address Unknown Phone Unavailable Care Team Providers Care Music Orchestrator Name Role Phone Lacey Burroughs Unavailable Unavailable JUANITA Gaines.Rhonda, BRAULIO Unavailable Unavailable MIGDALIA Garcia, HARRIS Unavailable Unavailable ILIA Garcia, LOUIS Unavailable Unavailable MARÍA VAZ KS, DASHAWN ROBERSON Unavailable Unavailable Rolan VAZ, Iftikhar Unavailable Unavailable DANNY VAZ KS, FREDY Unavailable Unavailable JUANITA MALDONADO KS, BRAULIO Unavailable Unavailable ILIA VAZ, LOUIS Unavailable Unavailable JAQUELINE HUA, VENITA Unavailable Unavailable KESHIA VAZ, MIKKI Schafer Unavailable Unavailable MARÍA Garcia, DASHAWN Unavailable Unavailable WERO GOODWIN, LOVE Unavailable Unavailable MARCO VAZ KS, ANEL Unavailable Unavailable MIGDALIA VAZ KS, HARRIS A Unavailable Unavailable Unavailable Unavailable Functional [...] associated with nocturia (600.01, N40.1) Status: Active Medication monitoring encounter (V58.83, Z51.81) Status: Active Hernia, abdominal (553.9, K46.9) Status: Active Medications Name Dates Details Multivitamins [...] * Quantity: 100 Refills: 2 YEH D.O., NOHEMIN * Start : 28-Jan-2016 Active Compression Stocking [...] 5 YEH D.O., KARINA-MJ * Start : 19-Nov-2017 Active 50 GM [...] Tablet TAKE 1 TABLET TWICE DAILY * Quantity: 28 Refills: 0 L[facility] MORILLO M.D. Active Allergies and Adverse Reactions Name Dates [...] Dates Details [QLH] PROTEIN, TOTAL Date: 13-Oct-2019 [QH] LIPID PANEL WITH REFLEX TO DIRECT LDL Date: 30-Oct-2019 [QLH] CBC (INCLUDES DIFF/PLT) Date: 30-Oct-2019 [QLH] CMP W/EGFR Date: 30-Oct-2019 [N] 2D Echo complete, with Doppler [id number] Date: 13-Oct-2019 History of Hernia Repair Completed History of Cholecystectomy Completed History of Percutaneous Vertebral Augmentation Kyphoplasty Completed 12-Apr-2018 Immunization Name Dates Details Tdap on: Sep-2001 Influenza on: 27-Jun-2012 Fluzone INJ Lot #: [id number] on: 05-Jun-2013 Fluzone INJ on: 06-Jun-2014 Fluzone INJ on: 21-May-2015 Prevnar 13 Intramuscular Suspension Lot #: [id number] on: 28-Jun-2015 Fluzone Quadrivalent 0.5 ML Intramuscular Suspension Prefilled Syringe Lot #: [id number] on: 12-May-2016 Pneumovax 23 25 MCG/0.5ML Injection Injectable Lot #: [id number] on: 08-Jul-2016 Fluzone Quadrivalent 0.5 ML Intramuscular Suspension Prefilled Syringe Lot #: [id number] on: 18-May-2017 Fluzone Quadrivalent 0.5 ML Intramuscular Suspension Prefilled Syringe Lot #: [id number] on: 11-May-2018 Tdap (Boostrix) Lot #: [id number] on: 02-Aug-2018 Fluzone High-Dose 0.5 ML Intramuscular Suspension Prefilled Syringe Lot #: [id number] on: 14-Jun-2019 Family History Name Dates Details [...] blood pressure 65 mm[Hg] Status: Comments: Location: [facility] [place] Position: Sitting Body height 70 in Status: Weight 218 lb Status: Body mass index (BMI) [Ratio] 31.28 kg/m2 Status: Body surface area Derived from formula 2.17 m2 Status: Heart Rate 61 /min Status: Comments: Location: L Brachial Artery; Respiratory rate 16 /min Status: O2 SAT 92 % Status: Comments: Source: RA Results Date Description Value Details :45 [[facility]] LIPID PANEL CHOLESTEROL, TOTAL 159 mg/dl (Normal) Range: <200 HDL CHOLESTEROL 50 mg/dl (Normal) Range: > OR=40 TRIGLYCERIDES 172 mg/dl (Above high threshold) Range: <150 LDL-CHOLESTEROL 82 {MG/DL__CAL} (Normal) Comments: Reference range: <100 Desirable range <100 mg/dL for primary prevention; <70 mg/dL for patients with CHD or diabetic patients with > or=2 CHD risk factors. LDL-C is now calculated using daniel Payne calculation, which is a validated novel method providing better accuracy than the Friedewald equation in the estimation of LDL-C. Missael REID et al. LUIS. 2013;310(19): 7906-5137 (http:/ /education.Spacebikini.com/faq/YSW248) CHOL/HDLC RATIO 3.2 {CALC} (Normal) Range: <5.0 NON HDL CHOLESTEROL 109 {MG/DL__CAL} (Normal) Range: <130 Comments: For patients with diabetes plus 1 major ASCVD risk factor, treating to a non-HDL-C goal of <100 mg/dL (LDL-C of <70 mg/dL) is considered a therapeutic option. :45 [[facility]] URIC ACID URIC ACID 8.4 mg/dl (Above [...] is approximately 13% higher for peopleidentified as -Syrian. eGFR NON- 59 {ML/MIN/1.7} (Below low threshold) [...] 10-35 ALT 16 u/l (Normal) Range: 9-46 :45 [Q] B2 GLYCOPROTEIN I (IGM)AB Comments: REPORT [...] Planned Goals not documented Planned Encounters Appointment; FLAQUITO HINKLE M.D. On: 03-Nov-2019 11:00 Appointment; LOUIS MORILLO M.D. On: 29-Feb-2020 14:00 Appointment; KENZIE TONY On: 12-Apr-2020 13:00 Appointment; IFTIKHAR YI M.D. On: 12-Apr-2020 14:00 Appointment; FREDY DELGADO M.D. On: 19-Apr-2020 11:00 Interventions Provided Follow-ups/Referrals* Surgery Referral; To Be Done: 30 Oct 2019 Instructions Name Dates Details Instructions [...] Problem not documented On: 18-May-2019 14:00 Appointment; [facility] Encounter Diagnosis: Problem not documented On: [...] Problem not documented On: 17-Oct-2019 14:00 Appointment; RBAULIO GRANT D.O. Encounter Diagnosis: Problem not documented On: 26-Oct-2019 14:45 Appointment; LOUIS MORILLO M.D. Encounter Diagnosis: Problem not documented On: 30-Oct-2019 13:20
--- OUTSIDE RECORDS SUMMARY | 2019-12-08 23:06 | XMS REPORT | Summary of Care ---
Author Author ROLAN Garcia, IFTIKHAR Jordan Unknown Address Unknown Phone Unavailable Care Team Providers Care Lna Name Role Phone Jaiden Valentin, Lisa Unavailable Unavailable JUANITA Castaneda, BRAULIO Unavailable Unavailable [...] L97.909) Status: Resolved Procedures Procedure Dates Details [QH] LIPID PANEL WITH REFLEX TO DIRECT LDL Date: 30-Oct-2019 [QLH] CBC (INCLUDES DIFF/PLT) Date: 30-Oct-2019 [QLH] CMP W/EGFR Date: 30-Oct-2019 [QLH] GGT Date: 30-Oct-2019 [QLH] PROTEIN, TOTAL Date: 13-Oct-2019 [N] 2D Echo complete, with Doppler [id number] Date: 13-Oct-2019 History of Hernia Repair Completed History of Cholecystectomy Completed History of Percutaneous Vertebral Augmentation Kyphoplasty Completed 12-Apr-2018 Immunization Name Dates Details Tdap on: Sep-2001 Influenza on: 27-Jun-2012 Fluzone INJ Lot #: [id number] on: 05-Jun-2013 Fluzone INJ on: 06-Jun-2014 Fluzone INJ on: 21-May-2015 Prevnar 13 Intramuscular Suspension Lot #: [id number] on: 28-Jun-2015 Fluzone Quadrivalent 0.5 ML Intramuscular Suspension Prefilled Syringe Lot #: [id number] on: 12-May-2016 Pneumovax 23 25 MCG/0.5ML Injection Injectable Lot #: [id number] on: 08-Jul-2016 Fluzone Quadrivalent 0.5 ML Intramuscular Suspension Prefilled Syringe Lot #: [id number] on: 18-May-2017 Fluzone Quadrivalent 0.5 ML Intramuscular Suspension Prefilled Syringe Lot #: [id number] on: 11-May-2018 Tdap (Boostrix) Lot #: [id number] on: 02-Aug-2018 Fluzone High-Dose 0.5 ML Intramuscular Suspension Prefilled Syringe Lot #: [id number] on: 14-Jun-2019 Family History Name Dates Details Family history of lung cancer (V16.1, Z80.1) Status: Active Name Dates Details Family history of Coronary artery disease (414.00, I25.10) Status: Active Family history of Aneurysm (442.9, I72.9) Status: Active Family history of Carotid artery disease (447.9, I77.9) Status: Active Social History Name Dates Details [...] blood pressure 151 mm[Hg] Status: Comments: Location: E; Position: Sitting Diastolic blood pressure 65 mm[Hg] [...] equation in the estimation of LDL-C. Missael SS et al. LUIS. 2013;310(19): 3270-4227 (http:/ /education.Integr[employer] Services.com/faq/RIZ086) CHOL/HDLC RATIO 3.2 {CALC} (Normal) Range: <5.0 [...] is approximately 13% higher for peopleidentified as -Ecuadorean. eGFR NON- 59 {ML/MIN/1.7} (Below low threshold) [...] 10-35 ALT 16 u/l (Normal) Range: 9-46 [id number]-Ken-[id number]:45 [Q] B2 GLYCOPROTEIN I (IGM)AB Comments: REPORT [...] DELGADO M.D. On: 19-Apr-2020 11:00 Interventions Provided Labs/Procedures/Imaging* [QLH] GGT; To Be Done: 30 Oct 2019 Instructions [...] documented On: 18-May-2019 14:00 Appointment; [facility] Encounter Diagnosis: Problem not documented On: [...] Problem not documented On: 13-Oct-2019 15:40 Appointment; [facility], [facility] Encounter Diagnosis: Problem not documented On: 17-Oct-2019 14:00 Appointment; BRAULIO GRANT D.O. Encounter Diagnosis: Problem not documented On: 26-Oct-2019 14:45 Appointment; LOUIS MORILLO M.D. Encounter Diagnosis: Problem not documented On: 30-Oct-2019 13:20
--- OUTSIDE RECORDS SUMMARY | 2019-12-08 23:06 | XMS REPORT | Summary of Care ---
Author Author ILIA Garcia, LOUIS Jordan Unknown Address Unknown Phone Unavailable Care Team Providers Care Manager Quality Improvement Name Role Phone JUANITA Castaneda, BRAULIO Unavailable Unavailable MIGDALIA Garcia, HARRIS Unavailable Unavailable ILIA Garcia, LOUIS Unavailable Unavailable MARÍA VAZ CT, DASHAWN ROBERSON Unavailable Unavailable Rolan VAZ, Iftikhar Unavailable Unavailable DANNY AVZ CT, FREDY Unavailable Unavailable JUANITA MALDONADO CT, [...] 13-Oct-2019 [N] 2D Echo complete, with Doppler [id number] Date: 13-Oct-2019 History of Hernia Repair Completed History of Cholecystectomy Completed History of Percutaneous Vertebral Augmentation Kyphoplasty Completed 12-Apr-2018 Immunization Name Dates Details Tdap on: Sep-2001 Influenza on: 27-Jun-2012 Fluzone INJ Lot #: [id number] on: 05-Jun-2013 Fluzone INJ on: 06-Jun-2014 Fluzone INJ on: 21-May-2015 Prevnar 13 Intramuscular Suspension Lot #: [id number] on: 28-Jun-2015 Fluzone Quadrivalent 0.5 ML Intramuscular Suspension Prefilled Syringe Lot #: [id number] on: 12-May-2016 Pneumovax 23 25 MCG/0.5ML Injection Injectable Lot #: [id number] on: 08-Jul-2016 Fluzone Quadrivalent 0.5 ML Intramuscular Suspension Prefilled Syringe Lot #: [id number] on: 18-May-2017 Fluzone Quadrivalent 0.5 ML Intramuscular Suspension Prefilled Syringe Lot #: [id number] on: 11-May-2018 Tdap (Boostrix) Lot #: [id number] on: 02-Aug-2018 Fluzone High-Dose 0.5 ML Intramuscular Suspension Prefilled Syringe Lot #: [id number] on: 14-Jun-2019 Family History Name Dates Details [...] blood pressure 130 mm[Hg] Status: Comments: Location: E; Position: Sitting Diastolic blood pressure 74 mm[Hg] Status: Comments: Location: E; Position: Sitting Body height 70 in Status: Weight 215 lb Status: Body mass index (BMI) [Ratio] 30.85 kg/m2 Status: Body surface area Derived from formula 2.15 m2 Status: Heart Rate 65 /min Status: Respiratory rate 16 /min Status: :41 Systolic blood pressure 134 mm[Hg] Status: Comments: Location: LUE; Position: Sitting Diastolic blood pressure 82 mm[Hg] Status: Comments: Location: E; Position: Sitting Body height 70 in Status: [...] LDL-C. Missael SS et al. LUIS. 2013;310(19): 9459-4120 (http:/ /education.Cellfire.Opiatalk/faq/VSD368) CHOL/HDLC RATIO 3.2 {CALC} (Normal) Range: <5.0 [...] is approximately 13% higher for peopleidentified as -Mongolian. eGFR NON- 59 {ML/MIN/1.7} (Below low threshold) [...] 10-35 ALT 16 u/l (Normal) Range: 9-46 [id number]-Vlx-[id number] [Q] B2 GLYCOPROTEIN I (IGM)AB Comments: REPORT [...] of Care Name Dates Details Planned Observations [QH] LIPID PANEL WITH REFLEX TO DIRECT LDL On: 19-Feb-2020 Intent [QLH] CBC (INCLUDES DIFF/PLT) On: 19-Feb-2020 Intent [QLH] CMP W/EGFR On: 19-Feb-2020 Intent Planned Goals not documented Planned Encounters Appointment; FLAQUITO HINKLE M.D. On: 03-Nov-2019 11:00 Appointment; LOUIS MORILLO M.D. On: 29-Feb-2020 14:00 Appointment; KENZIE TONY On: 12-Apr-2020 13:00 Appointment; IFTIKHAR YI M.D. On: 12-Apr-2020 14:00 Appointment; FREDY DELGADO M.D. On: 19-Apr-2020 11:00 Interventions Provided Medication Changes* Eliquis 5 MG Oral Tablet - Renew Discussion/Summary* 1- H/o severe MR * - Moderate to severe MR on 01/2016 echo with flail/prolapsed posterior leaflet. * - TTE 06-29-2018: LVEF normal, Severe MR, Moderate AR, RVSP 42 mmHg, DOREEN recommended. * - s/p Bandar transcatheter mitral valve repair * - Echo mild/mod MR, preserved EF * - No change on echo * - LHC was no significant CAD in * 2. Moderate * - DOREEN 02/21/19: LVEF 35-40% , RADHA 0.96 cm2, mean gradient 20 mmHg, Vmax was 3.2 * - DSE 02/2019: no change in dimensionless index with increasing dobutamine. * - continue to monitor * 3- Afib, * - Rate controlled * - Eliquis too expensive for him * - Also he has valvular Afib and not a NOAC candidate * - Warfarin therapy has been difficult, with multiple high INR reading, recent fall with face/neck bruises. * - Overall about 3 recent falls, not a candidate for warfarin therapy * - Will likely benefit from a Watchman procedure, will Refer to Dr. Danny RENEE to evaluate for potential ANNA occlusion. 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 Delgado * - s/p PPM by Dr. Delgado 10-04-2019, * - Watchman could not be implanted by Dr. Delgado for ANNA anatomy, * - Ling pt assistance material given to pt. * 5- HLP: * - Last SGD=107. Started Crestor 5. * - LDL=82, * - Continue crestor 5 daily * RTC after 4 months. Instructions Name Dates Details Instructions not documented [...] Problem not documented On: 11-May-2018 13:00 [facility] Encounter Diagnosis: Problem not documented On: 29-Jun-2018 15:00 Appointment; LOUIS MORILLO M.D. Encounter Diagnosis: Problem not documented On: 04-Jul-2018 13:20 Appointment; BRAULIO GRANT D.O. Encounter Diagnosis: Problem not documented On: 02-Aug-2018 13:00 Appointment; LOVE CONTEH PHan Encounter Diagnosis: Problem not documented On: 01-Sep-2018 [...] Problem not documented On: 18-May-2019 14:00 Appointment; [facility] [place] Encounter Diagnosis: Problem not documented [...] Problem not documented On: 18-Aug-2019 11:00 Appointment; [facility] TONY1 Encounter Diagnosis: Problem not documented On: 13-Oct-2019 14:30 Appointment; IFTIKHAR YI M.D. Encounter Diagnosis: Problem not documented On: 13-Oct-2019 15:40 Appointment; [facility] Encounter Diagnosis: Problem not documented On: 17-Oct-2019 14:00 Appointment; BRAULIO GRANT D.O. Encounter Diagnosis: Problem not documented On: 26-Oct-2019 14:45 Appointment; LOUIS MORILLO M.D. Encounter Diagnosis: Problem not documented On: 30-Oct-2019 13:20
--- OUTSIDE RECORDS SUMMARY | 2019-12-08 23:06 | XMS REPORT | Summary of Care ---
Author Author Lisa Hwang R.N. Organization Unknown Address [facility] Phone Unavailable Care Team Providers Care Clam Shucker Name Role Phone Jaiden Valentin, Lisa Unavailable Unavailable JUANITA Gaines.Rhonda, BRAULIO Unavailable Unavailable MIGDALIA Garcia, HARRIS Unavailable Unavailable ILIA Garcia, LOUIS Unavailable Unavailable MARÍA VAZ [place], DASHAWN ROBERSON Unavailable Unavailable Rolan VAZ, Iftikhar Unavailable Unavailable DANNY VAZ [place], FREDY Unavailable Unavailable JUANITA MALDONADO [place], BRAULIO Unavailable Unavailable ILIA VAZ, LOUIS Unavailable Unavailable JAQUELINE HENRYP, VENITA Unavailable Unavailable KESHIA VAZ, MIKKI S Unavailable Unavailable MARÍA Garcia, DASHAWN Unavailable Unavailable WERO GOODWIN, LOVE Unavailable Unavailable MARCO VAZ [place], ANEL Unavailable Unavailable MIGDALIA VAZ [place], HARRIS A Unavailable Unavailable Unavailable Unavailable Functional [...] 13-Oct-2019 [N] 2D Echo complete, with Doppler [id number] Date: 13-Oct-2019 History of Hernia Repair Completed History of Cholecystectomy Completed History of Percutaneous Vertebral Augmentation Kyphoplasty Completed 12-Apr-2018 Immunization Name Dates Details Tdap on: Sep-2001 Influenza on: 27-Jun-2012 Fluzone INJ Lot #: [id number] on: 05-Jun-2013 Fluzone INJ on: 06-Jun-2014 Fluzone INJ on: 21-May-2015 Prevnar 13 Intramuscular Suspension Lot #: [id number] on: 28-Jun-2015 Fluzone Quadrivalent 0.5 ML Intramuscular Suspension Prefilled Syringe Lot #: [id number] on: 12-May-2016 Pneumovax 23 25 MCG/0.5ML Injection Injectable Lot #: [id number] on: 08-Jul-2016 Fluzone Quadrivalent 0.5 ML Intramuscular Suspension Prefilled Syringe Lot #: [id number] on: 18-May-2017 Fluzone Quadrivalent 0.5 ML Intramuscular Suspension Prefilled Syringe Lot #: [id number] on: 11-May-2018 Tdap (Boostrix) Lot #: [id number] on: 02-Aug-2018 Fluzone High-Dose 0.5 ML Intramuscular Suspension Prefilled Syringe Lot #: [id number] on: 14-Jun-2019 Family History Name Dates Details [...] LDL-C. Missael SS et al. LUIS. 2013;310(19): 4842-6754 (http:/ /education.Children [employer] the Elements.com/faq/MIL352) CHOL/HDLC RATIO 3.2 {CALC} (Normal) Range: <5.0 [...] is approximately 13% higher for peopleidentified as -Palestinian. eGFR NON- 59 {ML/MIN/1.7} (Below low threshold) [...] 10-35 ALT 16 u/l (Normal) Range: 9-46 96-Yap-[id number]:45 [Q] B2 GLYCOPROTEIN I (IGM)AB Comments: REPORT [...] Problem not documented On: 18-May-2019 14:00 Appointment; [facility] Encounter Diagnosis: Problem not documented On: [...] Problem not documented On: 13-Oct-2019 15:40 Appointment; [facility] Encounter Diagnosis: Problem not documented On: 17-Oct-2019 14:00 Appointment; BRAULIO GRANT D.O. Encounter Diagnosis: Problem not documented On: 26-Oct-2019 14:45 Appointment; LOUIS MORILLO M.D. Encounter Diagnosis: Problem not documented On: 30-Oct-2019 13:20
--- OUTSIDE RECORDS SUMMARY | 2019-12-08 23:07 | XMS REPORT | Summary of Care ---
Author Author Ravinder Valentin, Leslie Jordan Unknown Address Unknown Phone Unavailable Care Team Providers Care Stone Layout Marker Name Role Phone JUANITA Castaneda, BRAULIO Unavailable Unavailable MIGDALIA Garcia, HARRIS Unavailable Unavailable ILIA Garcia, LOUIS Unavailable Unavailable Ravinder Valentin, Leslie Unavailable Unavailable MARÍA VAZ [place], DASHAWN ROBERSON Unavailable Unavailable Rolan VAZ, Iftikhar Unavailable Unavailable DANNY VAZ [place], FREDY Unavailable Unavailable JUANITA MALDONADO PR, BRAULIO Unavailable Unavailable ILIA VAZ, LOUIS Unavailable Unavailable JAQUELINE HENRYP, VENITA Unavailable Unavailable KESHIA VAZ, MIKKI S Unavailable Unavailable MARÍA Garcia, DASHAWN Unavailable Unavailable WERO GOODWIN, LOVE Unavailable Unavailable MARCO VAZ PR, ANEL Unavailable Unavailable MIGDALIA VAZ PR, HARRIS A Unavailable Unavailable Unavailable Unavailable Functional [...] * Quantity: 60 Refills: 0 YEH D.O., MARLYNMJ * Start : 14-Mar-2018 Active Rosuvastatin Calcium [...] Z87.19) Status: Resolved History of chronic cholecystitis (V1., Z87.19) Status: Resolved History of Contusion of [...] 13-Oct-2019 [N] 2D Echo complete, with Doppler [id number] Date: 13-Oct-2019 History of Hernia Repair Completed History of Cholecystectomy Completed History of Percutaneous Vertebral Augmentation Kyphoplasty Completed 12-Apr-2018 Immunization Name Dates Details Tdap on: Sep-2001 Influenza on: 27-Jun-2012 Fluzone INJ Lot #: [id number] on: 05-Jun-2013 Fluzone INJ on: 06-Jun-2014 Fluzone INJ on: 21-May-2015 Prevnar 13 Intramuscular Suspension Lot #: [id number] on: 28-Jun-2015 Fluzone Quadrivalent 0.5 ML Intramuscular Suspension Prefilled Syringe Lot #: [id number] on: 12-May-2016 Pneumovax 23 25 MCG/0.5ML Injection Injectable Lot #: [id number] on: 08-Jul-2016 Fluzone Quadrivalent 0.5 ML Intramuscular Suspension Prefilled Syringe Lot #: [id number] on: 18-May-2017 Fluzone Quadrivalent 0.5 ML Intramuscular Suspension Prefilled Syringe Lot #: [id number] on: 11-May-2018 Tdap (Boostrix) Lot #: [id number] on: 02-Aug-2018 Fluzone High-Dose 0.5 ML Intramuscular Suspension Prefilled Syringe Lot #: [id number] on: 14-Jun-2019 Family History Name Dates Details [...] temperature 97.9 f Status: Comments: Method: Tympanic [id number] Systolic blood pressure 151 mm[Hg] Status: Comments: [...] LDL-C. Missael SS et al. LUIS. 2013;310(19): 0018-7663 (http:/ /education.Discera.com/faq/NXF348) CHOL/HDLC RATIO 3.2 {CALC} (Normal) Range: <5.0 [...] is approximately 13% higher for peopleidentified as -Cambodian. eGFR NON- 59 {ML/MIN/1.7} (Below low threshold) [...] 10-35 ALT 16 u/l (Normal) Range: 9-46 88-Ong-399009:45 [Q] B2 GLYCOPROTEIN I (IGM)AB Comments: REPORT [...] DELGADO M.D. On: 19-Apr-2020 11:00 Interventions Provided Discussion/Summary* Guideline Used: * Clinic: [facility] * is requesting to speak to Nery NINO. States pt may need to go back to using Coumadin. * Pt: [phone] * Chart review done. * Additional Information: * Task sent to Nery Gautam RN. Instructions Name Dates Details Instructions not documented [...] Problem not documented On: 11-May-2018 13:00 Appointment; [facility] Encounter Diagnosis: Problem not documented On: [...] On: 18-May-2019 14:00 Appointment; [facility] Encounter Diagnosis: Problem not documented On: [...]
--- OUTSIDE RECORDS SUMMARY | 2019-12-08 23:07 | XMS REPORT | Summary of Care ---
Author Author ILIA Garcia, LOUIS Jordan Unknown Address Unknown Phone Unavailable Care Team Providers Care Closing Agent Name Role Phone JUANITA Castaneda, BRAULIO Unavailable Unavailable MIGDALIA Garcia, HARRIS Unavailable Unavailable ILIA Garcia, LOUIS Unavailable Unavailable MARÍA VAZ [place], DASHAWN ROBERSON Unavailable Unavailable Rolan VAZ, Iftikhar Unavailable Unavailable DANNY VAZ [place], FREDY Unavailable Unavailable JUANITA MALDONADO [place], BRAULIO Unavailable Unavailable ILIA VAZ, LOUIS Unavailable Unavailable JAQUELINE HUA, VENITA Unavailable Unavailable KESHIA VAZ, MIKKI Schafer Unavailable Unavailable MARÍA Garcia, DASHAWN Unavailable Unavailable WERO GOODWIN, LOVE Unavailable Unavailable MARCO VAZ [place], ANEL Unavailable Unavailable MIGDALIA VAZ [place], HARRIS A Unavailable Unavailable Unavailable Unavailable Functional [...] * Quantity: 1 Refills: 5 YEH D.O., RBAULIO * Start : 02-Aug-2018 Active 16 GM [...] 13-Oct-2019 [N] 2D Echo complete, with Doppler [id number] Date: 13-Oct-2019 History of Hernia Repair Completed History of Cholecystectomy Completed History of Percutaneous Vertebral Augmentation Kyphoplasty Completed 12-Apr-2018 Immunization Name Dates Details Tdap on: Sep-2001 Influenza on: 27-Jun-2012 Fluzone INJ Lot #: [id number] on: 05-Jun-2013 Fluzone INJ on: 06-Jun-2014 Fluzone INJ on: 21-May-2015 Prevnar 13 Intramuscular Suspension Lot #: [id number] on: 28-Jun-2015 Fluzone Quadrivalent 0.5 ML Intramuscular Suspension Prefilled Syringe Lot #: [id number] on: 12-May-2016 Pneumovax 23 25 MCG/0.5ML Injection Injectable Lot #: [id number] on: 08-Jul-2016 Fluzone Quadrivalent 0.5 ML Intramuscular Suspension Prefilled Syringe Lot #: [id number] on: 18-May-2017 Fluzone Quadrivalent 0.5 ML Intramuscular Suspension Prefilled Syringe Lot #: [id number] on: 11-May-2018 Tdap (Boostrix) Lot #: [id number] on: 02-Aug-2018 Fluzone High-Dose 0.5 ML Intramuscular Suspension Prefilled Syringe Lot #: [id number] on: 14-Jun-2019 Family History Name Dates Details [...] LDL-C. Missael SS et al. LUIS. 2013;310(19): 6848-4673 (http:/ /education.Limos.com.[employer]/faq/SBW644) CHOL/HDLC RATIO 3.2 {CALC} (Normal) Range: <5.0 [...] is approximately 13% higher for peopleidentified as -Monegasque. eGFR NON- 59 {ML/MIN/1.7} (Below low threshold) [...] 10-35 ALT 16 u/l (Normal) Range: 9-46 63-Rpx-241425:45 [Q] B2 GLYCOPROTEIN I (IGM)AB Comments: REPORT [...] Planned Encounters Appointment; LOUIS MORILLO M.D. On: 29-Feb-2020 14:00 [...] a Watchman procedure, will Refer to Dr. Delgado EP to evaluate for potential ANNA occlusion. 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 Delgado * - s/p PPM by Dr. Delgado 10-04-2019, * - Watchman could not be implanted by Dr. Delgado for ANNA anatomy, * - Ling pt assistance material given to pt. * 5- HLP: * - Last IQX=746. Started Crestor 5. * - LDL=82, * [...] Problem not documented On: 11-May-2018 13:00 Appointment; [facility] [place] Encounter Diagnosis: Problem not documented On: [...] documented On: 18-May-2019 14:00 Appointment; [facility] Encounter Diagnosis: Problem not documented [...]
--- OUTSIDE RECORDS SUMMARY | 2019-12-08 23:07 | XMS REPORT | Summary of Care ---
Author Author Christal Salinas M.A. Unknown Address Unknown Phone Unavailable Care Team Providers Care Lead Software Architect Name Role Phone MANAN Garcia, FLAQUITO Unavailable Unavailable JUANITA Gaines.Rhonda, BRAULIO Unavailable Unavailable MIGDALIA Garcia, HARRIS Unavailable Unavailable ILIA Garcia, LOUIS Unavailable Unavailable MARÍA VAZ [place], DASHAWN ROBERSON Unavailable Unavailable Rolan VAZ, Iftikhar Unavailable Unavailable DANNY VAZ [place], FREDY Unavailable Unavailable JUANITA MALDONADO [place], BRAULIO Unavailable Unavailable ILIA VAZ, LOUIS Unavailable Unavailable JAQUELINE HUA, VENITA Unavailable Unavailable KESHIA VAZ, MIKKI S Unavailable Unavailable MARÍA Garcia, DASHAWN Unavailable Unavailable WERO GOODWIN, LOVE Unavailable Unavailable MARCO VAZ [place], ANEL Unavailable Unavailable MIGDALIA VAZ [place], HARRIS Flaherty Unavailable Unavailable Unavailable Unavailable Functional [...] 13-Oct-2019 [N] 2D Echo complete, with Doppler [id number] Date: 13-Oct-2019 History of Hernia Repair Completed History of Cholecystectomy Completed History of Percutaneous Vertebral Augmentation Kyphoplasty Completed 12-Apr-2018 Immunization Name Dates Details Tdap on: Sep-2001 Influenza on: 27-Jun-2012 Fluzone INJ Lot #: [id number] on: 05-Jun-2013 Fluzone INJ on: 06-Jun-2014 Fluzone INJ on: 21-May-2015 Prevnar 13 Intramuscular Suspension Lot #: [id number] on: 28-Jun-2015 Fluzone Quadrivalent 0.5 ML Intramuscular Suspension Prefilled Syringe Lot #: [id number] on: 12-May-2016 Pneumovax 23 25 MCG/0.5ML Injection Injectable Lot #: [id number] on: 08-Jul-2016 Fluzone Quadrivalent 0.5 ML Intramuscular Suspension Prefilled Syringe Lot #: [id number] on: 18-May-2017 Fluzone Quadrivalent 0.5 ML Intramuscular Suspension Prefilled Syringe Lot #: [id number] on: 11-May-2018 Tdap (Boostrix) Lot #: [id number] on: 02-Aug-2018 Fluzone High-Dose 0.5 ML Intramuscular Suspension Prefilled Syringe Lot #: [id number] on: 14-Jun-2019 Family History Name Dates Details [...] (finding) Vital Signs Date Test Result Details :54 Systolic blood pressure 130 mm[Hg] Status: Comments: Location: E; Position: Sitting Diastolic blood pressure 61 mm[Hg] Status: Comments: [place] [facility] [place] Position: Sitting Body height 70 in Status: Weight 215.6 lb Status: Body mass index (BMI) [Ratio] 30.94 kg/m2 Status: Body surface area Derived from formula 2.16 m2 Status: Body temperature 97.5 f Status: Comments: Method: Oral Heart Rate 66 /min Status: :48 Systolic blood pressure 130 mm[Hg] Status: Comments: Location: E; Position: Sitting Diastolic blood pressure 74 mm[Hg] Status: Comments: Location: [facility] [place]; Position: Sitting Body height 70 in Status: [...] temperature 97.9 f Status: Comments: Method: Tympanic Heart Rate 60 /min Status: Respiratory rate 16 /min Status: :26 Systolic blood pressure 151 [...] LDL-C. Missael REID et al. LUIS. 2013;310(19): 2474-8863 (http:/ /education.SoccerFreakz.com/faq/MLR494) CHOL/HDLC RATIO 3.2 {CALC} (Normal) Range: <5.0 NON HDL CHOLESTEROL 109 {MG/DL__CAL} (Normal) Range: <130 Comments: For patients with diabetes plus 1 major ASCVD risk factor, treating to a non-HDL-C goal of <100 mg/dL (LDL-C of <70 mg/dL) is considered a therapeutic option. :45 [QLH] URIC ACID URIC ACID 8.4 mg/dl (Above high threshold) Range: 4.0-8.0 Comments: Therapeutic target for gout patients: <6.0 mg/dL :45 [QLH] CMP W/EGFR GLUCOSE 87 mg/dl (Normal) Range: 65-99 Comments: Fasting reference interval UREA NITROGEN (BUN) 26 mg/dl (Above high threshold) Range: 7-25 CREATININE 1.20 mg/dl (Above high threshold) Range: 0.70-1.18 Comments: For patients >49 years of age, the reference limitfor Creatinine is approximately 13% higher for peopleidentified as -Citizen Of [place]. eGFR NON- 59 {ML/MIN/1.7} (Below low threshold) [...] not documented On: 18-May-2019 14:00 Appointment; [facility] [place] Encounter Diagnosis: Problem not documented On: [...] Problem not documented On: 13-Oct-2019 15:40 Appointment; [facility], [facility] Encounter Diagnosis: Problem not documented On: 17-Oct-2019 14:00 Appointment; BRAULIO GRANT D.O. Encounter Diagnosis: Problem not documented On: 26-Oct-2019 14:45 Appointment; LOUIS MORILLO M.D. Encounter Diagnosis: Problem not documented On: 30-Oct-2019 13:20 Appointment; FLAQUITO HINKLE M.D. Encounter Diagnosis: Problem not documented On: 03-Nov-2019 11:00
--- OUTSIDE RECORDS SUMMARY | 2019-12-08 23:08 | XMS REPORT | Summary of Care ---
Author Author JUANITA Castaneda, BRAULIO Organization Unknown Address Unknown Phone Unavailable Care Team Providers Care Funnel Setter Name Role Phone Jessenia Priest, Diana Unavailable Unavailable JUANITA Castaneda, BRAULIO Unavailable Unavailable MIGDALIA Garcia, HARRIS Unavailable Unavailable ILIA Garcia, LOUIS Unavailable Unavailable MARÍA VAZ [place], DASHAWN ROBERSON Unavailable Unavailable Rolan VAZ, Iftikhar Unavailable Unavailable DANNY VAZ [place], FREDY Unavailable Unavailable JUANITA MALDONADO [place], BRAULIO Unavailable Unavailable ILIA VAZ, LOUIS Unavailable Unavailable JAQUELINE HENRYP, VENITA Unavailable Unavailable KESHIA VAZ, MIKKI S Unavailable Unavailable MARÍA Garcia, DASHAWN Unavailable Unavailable WERO GOODWIN, LOVE Unavailable Unavailable MARCO VAZ [place], ANEL Unavailable Unavailable MIGDALIA VAZ [place], HARRIS A Unavailable Unavailable Unavailable Unavailable Functional [...] Active Hernia, abdominal (553.9, K46.9) Status: Active Incisional hernia (553.21, K43.2) Status: Active Medications Name Dates Details Multivitamins [...] TAKE 1 TO 2 TABLETS BY MOUTH EVERY DAY * Quantity: 100 Refills: 0 YEH D.O.BRAULIO * Start : 28-Jan-2016 Active [...] Z87.898) Status: Resolved History of acute cholecystitis (V1, Z87.19) Status: Resolved History of biliary colic (, Z87.19) Status: Resolved History of Cholecystostomy care (V55.4, Z43.4) Status: Resolved History of cholelithiasis (, Z87.19) Status: Resolved History of chronic cholecystitis (, Z87.19) Status: Resolved History of Contusion of [...] 13-Oct-2019 [N] 2D Echo complete, with Doppler 22442 Date: 13-Oct-2019 History of Hernia Repair Completed History of Cholecystectomy Completed History of Percutaneous Vertebral Augmentation Kyphoplasty Completed 12-Apr-2018 History of Abdominal aortic aneurysm repair Completed Immunization Name Dates Details Tdap on: Sep-2001 Influenza on: 27-Jun-2012 Fluzone INJ Lot #: [id number] on: 05-Jun-2013 Fluzone INJ on: 06-Jun-2014 Fluzone INJ on: 21-May-2015 Prevnar 13 Intramuscular Suspension Lot #: [id number] on: 28-Jun-2015 Fluzone Quadrivalent 0.5 ML Intramuscular Suspension Prefilled Syringe Lot #: [id number] on: 12-May-2016 Pneumovax 23 25 MCG/0.5ML Injection Injectable Lot #: [id number] on: 08-Jul-2016 Fluzone Quadrivalent 0.5 ML Intramuscular Suspension Prefilled Syringe Lot #: [id number] on: 18-May-2017 Fluzone Quadrivalent 0.5 ML Intramuscular Suspension Prefilled Syringe Lot #: [id number] on: 11-May-2018 Tdap (Boostrix) Lot #: [id number] on: 02-Aug-2018 Fluzone High-Dose 0.5 ML Intramuscular Suspension Prefilled Syringe Lot #: [id number] on: 14-Jun-2019 Family History Name Dates Details [...] blood pressure 130 mm[Hg] Status: Comments: [place] [facility] [place]: [place]itting Diastolic blood pressure 61 mm[Hg] Status: Comments: [place] [facility] [place] Position: Sitting Body height 70 in Status: Weight 215.6 lb Status: Body mass index (BMI) [Ratio] 30.94 kg/m2 Status: Body surface area Derived from formula 2.16 m2 Status: Body temperature 97.5 f Status: Comments: Method: Oral Heart Rate 66 /min Status: :48 Systolic blood pressure 130 mm[Hg] Status: Comments: Location: LUE; Position: Sitting Diastolic blood pressure 74 mm[Hg] Status: Comments: [place] [facility] [place] Position: Sitting Body height 70 in Status: [...] O2 SAT 92 % Status: Comments: Source: Results Date Description Value Details :45 [[facility]] LIPID PANEL CHOLESTEROL, TOTAL 159 [...] LDL-C. Missael SS et al. LUIS. 2013;310(19): 7618-2471 (http:/ /education.[employer]/faq/DTU280) CHOL/HDLC RATIO 3.2 {CALC} (Normal) Range: <5.0 [...] is approximately 13% higher for peopleidentified as -Greenlandic. eGFR NON- 59 {ML/MIN/1.7} (Below low threshold) [...] not documented On: 29-Jun-2018 15:00 Appointment; LOUIS MROILLO M.D. Encounter Diagnosis: Problem not documented On: [...] Problem not documented On: 18-May-2019 14:00 Appointment; [facility] Encounter Diagnosis: Problem not documented [...] Problem not documented On: 13-Oct-2019 15:40 Appointment; [facility], [facility] Encounter Diagnosis: Problem not documented On: 17-Oct-2019 14:00
--- OUTSIDE RECORDS SUMMARY | 2019-12-08 23:08 | XMS REPORT | Summary of Care ---
Author Author Susi Priest, Adelaide Jordan Unknown Address Unknown Phone Unavailable Care Team Providers Care Picking Machine Operator Name Role Phone JUANITA Castaneda, BRAULIO [...] DAY * Quantity: 100 Refills: 0 YEH D.O., BRAULIO * Start : 28-Jan-2016 [...] 13-Oct-2019 [N] 2D Echo complete, with Doppler [id number] Date: 13-Oct-2019 History of Hernia Repair Completed History of Cholecystectomy Completed History of Percutaneous Vertebral Augmentation Kyphoplasty Completed 12-Apr-2018 Immunization Name Dates Details Tdap on: Sep-2001 Influenza on: 27-Jun-2012 Fluzone INJ Lot #: [id number] on: 05-Jun-2013 Fluzone INJ on: 06-Jun-2014 Fluzone INJ on: 21-May-2015 Prevnar 13 Intramuscular Suspension Lot #: [id number] on: 28-Jun-2015 Fluzone Quadrivalent 0.5 ML Intramuscular Suspension Prefilled Syringe Lot #: [id number] on: 12-May-2016 Pneumovax 23 25 MCG/0.5ML Injection Injectable Lot #: [id number] on: 08-Jul-2016 Fluzone Quadrivalent 0.5 ML Intramuscular Suspension Prefilled Syringe Lot #: [id number] on: 18-May-2017 Fluzone Quadrivalent 0.5 ML Intramuscular Suspension Prefilled Syringe Lot #: [id number] on: 11-May-2018 Tdap (Boostrix) Lot #: [id number] on: 02-Aug-2018 Fluzone High-Dose 0.5 ML Intramuscular Suspension Prefilled Syringe Lot #: [id number] on: 14-Jun-2019 Family History Name Dates Details [...] Location: LUE; Position: Sitting Diastolic blood pressure 61 mm[Hg] Status: Comments: Location: LUE; Position: Sitting [...] LDL-C. Missael REID et al. LUIS. 2013;310(19): 3629-8066 (http:/ /education.[employer].Masala/faq/IWI226) CHOL/HDLC RATIO 3.2 {CALC} (Normal) Range: <5.0 [...] is approximately 13% higher for peopleidentified as -Cook Islander. eGFR NON- 59 {ML/MIN/1.7} (Below low [...] On: 19-Apr-2020 11:00 Interventions Provided Medication Changes* Furosemide 40 MG Oral Tablet - Renew Instructions Name Dates Details Instructions not documented [...] Problem not documented On: 18-May-2019 14:00 Appointment; [facility] [place] Encounter Diagnosis: Problem not documented On: [...] not documented On: 13-Oct-2019 15:40 Appointment; [facility] Encounter Diagnosis: Problem not documented On: 17-Oct-2019 14:00 Appointment; BRAULIO GRANT D.O. Encounter Diagnosis: Problem not documented On: 26-Oct-2019 14:45 Appointment; LOUIS MORILLO M.D. Encounter Diagnosis: Problem not documented On: 30-Oct-2019 13:20 Appointment; FLAQUITO HINKLE M.D. Encounter Diagnosis: Problem not documented On: 03-Nov-2019 11:00
--- OUTSIDE RECORDS SUMMARY | 2019-12-08 23:08 | XMS REPORT | Summary of Care ---
Author Author MANAN Garcia, FLAQUITO Organization Unknown Address Unknown Phone Unavailable Care Team Providers Care Gear Design Engineer Name Role Phone MANAN Garcia, FLAQUITO Unavailable Unavailable JUANITA D.OSantiago, BRAULIO Unavailable Unavailable MIGDALIA Garcia, HARRIS Unavailable [...] 13-Oct-2019 [N] 2D Echo complete, with Doppler [id number] Date: 13-Oct-2019 History of Hernia Repair Completed History of Cholecystectomy Completed History of Percutaneous Vertebral Augmentation Kyphoplasty Completed 12-Apr-2018 History of Abdominal aortic aneurysm repair Completed Immunization Name Dates Details Tdap on: Sep-2001 Influenza on: 27-Jun-2012 Fluzone INJ Lot #: [id number] on: 05-Jun-2013 Fluzone INJ on: 06-Jun-2014 Fluzone INJ on: 21-May-2015 Prevnar 13 Intramuscular Suspension Lot #: [id number] on: 28-Jun-2015 Fluzone Quadrivalent 0.5 ML Intramuscular Suspension Prefilled Syringe Lot #: [id number] on: 12-May-2016 Pneumovax 23 25 MCG/0.5ML Injection Injectable Lot #: [id number] on: 08-Jul-2016 Fluzone Quadrivalent 0.5 ML Intramuscular Suspension Prefilled Syringe Lot #: [id number] on: 18-May-2017 Fluzone Quadrivalent 0.5 ML Intramuscular Suspension Prefilled Syringe Lot #: [id number] on: 11-May-2018 Tdap (Boostrix) Lot #: [id number] on: 02-Aug-2018 Fluzone High-Dose 0.5 ML Intramuscular Suspension Prefilled Syringe Lot #: [id number] on: 14-Jun-2019 Family History Name Dates Details [...] blood pressure 130 mm[Hg] Status: Comments: [place] [facility] [place] Position: Sitting Diastolic blood pressure 61 mm[Hg] Status: Comments: Location: [facility] [place]; Position: Sitting Body height 70 in Status: Weight 215.6 lb Status: Body mass index (BMI) [Ratio] 30.94 kg/m2 Status: Body surface area Derived from formula 2.16 m2 Status: Body temperature 97.5 f Status: Comments: Method: Oral Heart Rate 66 /min Status: :48 Systolic blood pressure 130 mm[Hg] Status: Comments: Location: LUE; Position: Sitting Diastolic blood pressure 74 mm[Hg] Status: Comments: Location: [facility] [place]; Position: Sitting Body height 70 in Status: [...] RA Results Date Description Value Details :45 [[facility]] LIPID PANEL CHOLESTEROL, TOTAL 159 mg/dl (Normal) [...] LDL-C. Missael REID et al. LUIS. 2013;310(19): 3478-6006 (http:/ /education.[employer].com/faq/UJO403) CHOL/HDLC RATIO 3.2 {CALC} (Normal) Range: <5.0 [...] is approximately 13% higher for peopleidentified as -Israeli. eGFR NON- 59 {ML/MIN/1.7} (Below low threshold) [...] DELGADO M.D. On: 19-Apr-2020 11:00 Interventions Provided Plan* His is a very complicated incisional hernia. I do not believe the limited benefits of hernia repair would justify the risk included with a lengthy surgical procedure. If he is to contemplate hernia repair further, I would advise opinion from a hernia specialty center for discussion of abdominal component separation. These procedures can require several hours and a lengthy postoperative disability. Without severe symptoms from the hernia, I believe it safer to avoid surgical intervention. He voiced satisfaction with our conversation Instructions Name Dates Details Instructions not documented [...] Problem not documented On: 18-May-2019 14:00 Appointment; [facility] [place] Encounter Diagnosis: Problem not [...]
--- OUTSIDE RECORDS SUMMARY | 2019-12-08 23:08 | XMS REPORT | Summary of Care ---
Author Author JUANITA Castaneda, BRAULIO Organization Unknown Address Unknown Phone Unavailable Care Team Providers Care Manager Therapy Name Role Phone JUANITA Castaneda, BRAULIO Unavailable [...] 13-Oct-2019 [N] 2D Echo complete, with Doppler [id number] Date: 13-Oct-2019 History of Hernia Repair Completed History of Cholecystectomy Completed History of Percutaneous Vertebral Augmentation Kyphoplasty Completed 12-Apr-2018 Immunization Name Dates Details Tdap on: Sep-2001 Influenza on: 27-Jun-2012 Fluzone INJ Lot #: [id number] on: 05-Jun-2013 Fluzone INJ on: 06-Jun-2014 Fluzone INJ on: 21-May-2015 Prevnar 13 Intramuscular Suspension Lot #: [id number] on: 28-Jun-2015 Fluzone Quadrivalent 0.5 ML Intramuscular Suspension Prefilled Syringe Lot #: [id number] on: 12-May-2016 Pneumovax 23 25 MCG/0.5ML Injection Injectable Lot #: [id number] on: 08-Jul-2016 Fluzone Quadrivalent 0.5 ML Intramuscular Suspension Prefilled Syringe Lot #: [id number] on: 18-May-2017 Fluzone Quadrivalent 0.5 ML Intramuscular Suspension Prefilled Syringe Lot #: [id number] on: 11-May-2018 Tdap (Boostrix) Lot #: [id number] on: 02-Aug-2018 Fluzone High-Dose 0.5 ML Intramuscular Suspension Prefilled Syringe Lot #: [id number] on: 14-Jun-2019 Family History Name Dates Details [...] RA Results Date Description Value Details :45 [[facility]] LIPID PANEL CHOLESTEROL, TOTAL 159 [...] LDL-C. Missael REID et al. LUIS. 2013;310(19): 3861-1357 (http:/ /education.[employer].com/faq/IEV575) CHOL/HDLC RATIO 3.2 {CALC} (Normal) Range: <5.0 [...] is approximately 13% higher for peopleidentified as -Haitian. eGFR NON- 59 {ML/MIN/1.7} (Below low threshold) [...] Follow-up in 6 month, sooner if needed * ADDENDUM on 11/03/2019 * Pt has limited moibility which would likely risk morbidity or mortality secondary to the attempts to perform and MRADL. * Pt has a caregiver who is available, willing nad able to provide assistance with the wheelchair. Instructions Name Dates Details Instructions not documented [...] documented On: 18-May-2019 14:00 Appointment; [facility] Encounter Diagnosis: Problem not documented On: [...] Problem not documented On: 13-Oct-2019 15:40 Appointment; [facility] Encounter Diagnosis: Problem not documented On: 17-Oct-2019 14:00 Appointment; BRAULIO GRANT D.O. Encounter Diagnosis: Problem not documented On: 26-Oct-2019 14:45
--- OUTSIDE RECORDS SUMMARY | 2019-12-08 23:09 | XMS REPORT | Summary of Care ---
Author Author Diana Ruelas M.A. Organization Unknown Address [facility] Phone Unavailable Care Team Providers Care Pottery Decorator Name Role Phone Diana Ruelas M.A. Unavailable [...] NEGRON M.D. * Start : 14-Jul-2016 Active Levalbuterol Tartrate 45 MCG/ACT Inhalation Aerosol INHALE 1 TO 2 PUFFS EVERY 4 TO 6 HOURS NEEDED. * Quantity: 1 Refills: 3 YEH D.O., KARINA-MJ * Start : 13-Nov-2015 Active 15 GM Inhaler Furosemide 40 MG Oral Tablet TAKE 1 TO 2 TABLETS BY MOUTH EVERY DAY * Quantity: 100 Refills: 0 YEH D.O., KARINA-MJ * Start : 28-Jan-2016 Active Metamucil Free & Natural 43 % Oral Powder daily * Refills: 0 * Start : 02-Apr-2017 Active 822 GM Bottle Ventolin HFA 108 (90 Base) MCG/ACT Inhalation Aerosol Solution INHALE 1 TO 2 PUFFS BY MOUTH EVERY 4 TO 6 HOURS NEEDED * Quantity: 1 Refills: 5 YEH D.O., KARINA-MJ * Start : 13-Dec-2018 Active 18 GM [...] D.O., BRAULIO * Start : 14-Mar-2018 Active Diclofenac Sodium 1 % Transdermal Gel [...] Start : 19-Nov-2017 Active 50 GM Tube Eliquis 5 MG Oral Tablet [...] Z87.898) Status: Resolved History of acute cholecystitis (, Z87.19) Status: Resolved History of biliary colic [...] Dates Details [QLH] PROTEIN, TOTAL Date: 13-Oct-2019 [QLH] GGT Date: 30-Oct-2019 [QH] LIPID PANEL WITH REFLEX TO DIRECT LDL Date: 30-Oct-2019 [QLH] CBC (INCLUDES DIFF/PLT) Date: 30-Oct-2019 [QLH] CMP W/EGFR Date: 30-Oct-2019 [N] 2D Echo complete, with Doppler 70730 Date: 13-Oct-2019 History of Hernia Repair Completed History of Cholecystectomy Completed History of Percutaneous Vertebral Augmentation Kyphoplasty Completed 12-Apr-2018 History of Abdominal aortic aneurysm repair Completed Immunization Name Dates Details Tdap on: Sep-2001 Influenza on: 27-Jun-2012 Fluzone INJ Lot #: [id number] on: 05-Jun-2013 Fluzone INJ on: 06-Jun-2014 Fluzone INJ on: 21-May-2015 Prevnar 13 Intramuscular Suspension Lot #: [id number] on: 28-Jun-2015 Fluzone Quadrivalent 0.5 ML Intramuscular Suspension Prefilled Syringe Lot #: [id number] on: 12-May-2016 Pneumovax 23 25 MCG/0.5ML Injection Injectable Lot #: [id number] on: 08-Jul-2016 Fluzone Quadrivalent 0.5 ML Intramuscular Suspension Prefilled Syringe Lot #: [id number] on: 18-May-2017 Fluzone Quadrivalent 0.5 ML Intramuscular Suspension Prefilled Syringe Lot #: [id number] on: 11-May-2018 Tdap (Boostrix) Lot #: [id number] on: 02-Aug-2018 Fluzone High-Dose 0.5 ML Intramuscular Suspension Prefilled Syringe Lot #: [id number] on: 14-Jun-2019 Family History Name Dates Details [...] blood pressure 130 mm[Hg] Status: Comments: [place] [facility] [place]: Sitting Diastolic blood pressure 61 mm[Hg] Status: Comments: Location: [facility] [place]; Position: Sitting Body height 70 in Status: Weight 215.6 lb Status: Body mass index (BMI) [Ratio] 30.94 kg/m2 Status: Body surface area Derived from formula 2.16 m2 Status: Body temperature 97.5 f Status: Comments: Method: Oral Heart Rate 66 /min Status: :48 Systolic blood pressure 130 mm[Hg] Status: Comments: Location: LUE; Position: Sitting Diastolic blood pressure 74 mm[Hg] Status: Comments: [place]: [facility] [place]; Position: Sitting Body height 70 in Status: Weight 215 lb Status: Body mass index (BMI) [Ratio] 30.85 kg/m2 Status: Body surface area Derived from formula 2.15 m2 Status: Heart Rate 65 /min Status: Respiratory rate 16 /min Status: Results Date Description Value Details Results not [...] Problem not documented On: 18-May-2019 14:00 Appointment; [facility], [place] Encounter Diagnosis: Problem not documented [...]
--- OUTSIDE RECORDS SUMMARY | 2019-12-08 23:09 | XMS REPORT | Summary of Care ---
Author Author Martha Kinsey R.N. Organization Unknown Address [facility] Phone Unavailable Care Team Providers Care Business Applications Developer Name Role Phone Tio Valentin, Martha Unavailable Unavailable JUANITA Castaneda, BRAULIO Unavailable Unavailable [...] L97.909) Status: Resolved Procedures Procedure Dates Details [Q] LIPID PANEL WITH REFLEX TO DIRECT LDL Date: 30-Oct-2019 [QL] CBC (INCLUDES DIFF/PLT) Date: 30-Oct-2019 [QL] CMP W/EGFR Date: 30-Oct-2019 [QL] GGT Date: 30-Oct-2019 [QL] PROTEIN, TOTAL Date: 13-Oct-2019 [N] 2D Echo complete, with Doppler [id number] Date: 13-Oct-2019 History of Hernia Repair Completed History of Cholecystectomy Completed History of Percutaneous Vertebral Augmentation Kyphoplasty Completed 12-Apr-2018 History of Abdominal aortic aneurysm repair Completed Immunization Name Dates Details Tdap on: Sep-2001 Influenza on: 27-Jun-2012 Fluzone INJ Lot #: [id number] on: 05-Jun-2013 Fluzone INJ on: 06-Jun-2014 Fluzone INJ on: 21-May-2015 Prevnar 13 Intramuscular Suspension Lot #: [id number] on: 28-Jun-2015 Fluzone Quadrivalent 0.5 ML Intramuscular Suspension Prefilled Syringe Lot #: [id number] on: 12-May-2016 Pneumovax 23 25 MCG/0.5ML Injection Injectable Lot #: [id number] on: 08-Jul-2016 Fluzone Quadrivalent 0.5 ML Intramuscular Suspension Prefilled Syringe Lot #: [id number] on: 18-May-2017 Fluzone Quadrivalent 0.5 ML Intramuscular Suspension Prefilled Syringe Lot #: [id number] on: 11-May-2018 Tdap (Boostrix) Lot #: [id number] on: 02-Aug-2018 Fluzone High-Dose 0.5 ML Intramuscular Suspension Prefilled Syringe Lot #: [id number] on: 14-Jun-2019 Family History Name Dates Details [...] (finding) Vital Signs Date Test Result Details No [...] 11:00 Interventions Provided Discussion/Summary* Guideline Used: * Other: ER Abd Pain Instructions Name Dates Details Instructions not documented [...] Problem not documented On: 24-Feb-2019 13:20 Appointment; BRAULOI GRANT D.O. Encounter Diagnosis: Problem not documented [...]
--- OUTSIDE RECORDS SUMMARY | 2019-12-08 23:09 | XMS REPORT | Summary of Care ---
Author Geoff Jack [facility] Unknown Address Unknown Phone Unavailable Care Team Providers Care Digital Artist Name Role Phone JUANITA Gaines.Rhonda, BRAULIO Unavailable Unavailable MIGDALIA Garcia, HARRIS Unavailable Unavailable ILIA Garcia, LOUIS Unavailable Unavailable MARÍA VAZ AR, DASHAWN ROBERSON Unavailable Unavailable Rolan VAZ, Iftikhar Unavailable Unavailable DANNY VAZ AR, FREDY Unavailable Unavailable JUANITA MALDONADO AR, BRAULIO Unavailable Unavailable ILIA VAZ, LOUIS Unavailable Unavailable JAQUELINE HUA, VENITA Unavailable Unavailable KESHIA VAZ, MIKKI Schafer Unavailable Unavailable MARÍA Garcia, DASHAWN Unavailable Unavailable WERO GOODWIN, LOVE Unavailable Unavailable MARCO VAZ AR, ANEL Unavailable Unavailable MIGDALIA VAZ AR, HARRIS A Unavailable Unavailable Unavailable Unavailable Functional [...] DAY * Quantity: 100 Refills: 0 YEH D.OBRAULIO Henderson * Start : 28-Jan-2016 Active Compression Stocking Pressure 20-30 * Quantity: 1 Refills: 0 [facility] NEGRON M.D.UART * Start : 14-Jul-2016 Active Metamucil Free [...] 30-Oct-2019 [N] 2D Echo complete, with Doppler [id number] Date: 13-Oct-2019 History of Hernia Repair Completed History of Cholecystectomy Completed History of Percutaneous Vertebral Augmentation Kyphoplasty Completed 12-Apr-2018 History of Abdominal aortic aneurysm repair Completed Immunization Name Dates Details Tdap on: Sep-2001 Influenza on: 27-Jun-2012 Fluzone INJ Lot #: [id number] on: 05-Jun-2013 Fluzone INJ on: 06-Jun-2014 Fluzone INJ on: 21-May-2015 Prevnar 13 Intramuscular Suspension Lot #: [id number] on: 28-Jun-2015 Fluzone Quadrivalent 0.5 ML Intramuscular Suspension Prefilled Syringe Lot #: [id number] on: 12-May-2016 Pneumovax 23 25 MCG/0.5ML Injection Injectable Lot #: [id number] on: 08-Jul-2016 Fluzone Quadrivalent 0.5 ML Intramuscular Suspension Prefilled Syringe Lot #: [id number] on: 18-May-2017 Fluzone Quadrivalent 0.5 ML Intramuscular Suspension Prefilled Syringe Lot #: [id number] on: 11-May-2018 Tdap (Boostrix) Lot #: [id number] on: 02-Aug-2018 Fluzone High-Dose 0.5 ML Intramuscular Suspension Prefilled Syringe Lot #: [id number] on: 14-Jun-2019 Family History Name Dates Details [...] blood pressure 61 mm[Hg] Status: Comments: Location: E; Position: Sitting [...] /min Status: Respiratory rate 16 /min Status: [id number] Systolic blood pressure 134 mm[Hg] Status: Comments: [...] Problem not documented On: 18-May-2019 14:00 Appointment; [facility], [place] Encounter Diagnosis: Problem not documented On: 23-May-2019 13:00 Appointment; BRAULIO GRNAT D.O. Encounter Diagnosis: Problem not documented On: [...]
--- OUTSIDE RECORDS SUMMARY | 2019-12-08 23:09 | XMS REPORT | Summary of Care ---
Author Geoff Jack [facility] Unknown Address Unknown Phone Unavailable Care Team Providers Care Electron Tube Assembler Name Role Phone JUANITA Gaines.Rhonda, BRAULIO Unavailable [...] 30-Oct-2019 [N] 2D Echo complete, with Doppler [id number] Date: 13-Oct-2019 History of Hernia Repair Completed History of Cholecystectomy Completed History of Percutaneous Vertebral Augmentation Kyphoplasty Completed 12-Apr-2018 History of Abdominal aortic aneurysm repair Completed Immunization Name Dates Details Tdap on: Sep-2001 Influenza on: 27-Jun-2012 Fluzone INJ Lot #: [id number] on: 05-Jun-2013 Fluzone INJ on: 06-Jun-2014 Fluzone INJ on: 21-May-2015 Prevnar 13 Intramuscular Suspension Lot #: [id number] on: 28-Jun-2015 Fluzone Quadrivalent 0.5 ML Intramuscular Suspension Prefilled Syringe Lot #: [id number] on: 12-May-2016 Pneumovax 23 25 MCG/0.5ML Injection Injectable Lot #: [id number] on: 08-Jul-2016 Fluzone Quadrivalent 0.5 ML Intramuscular Suspension Prefilled Syringe Lot #: [id number] on: 18-May-2017 Fluzone Quadrivalent 0.5 ML Intramuscular Suspension Prefilled Syringe Lot #: [id number] on: 11-May-2018 Tdap (Boostrix) Lot #: [id number] on: 02-Aug-2018 Fluzone High-Dose 0.5 ML Intramuscular Suspension Prefilled Syringe Lot #: [id number] on: 14-Jun-2019 Family History Name Dates Details [...] /min Status: Results Date Description Value Details :45 [QL] [...] LDL-C. Missael SS et al. LUIS. 2013;310(19): 6966-2535 (http:/ /education.[employer].com.com/faq/PUW156) CHOL/HDLC RATIO 3.2 {CALC} (Normal) Range: <5.0 [...] 10-35 ALT 16 u/l (Normal) Range: 9-46 [id number] [Q] B2 GLYCOPROTEIN I (IGM)AB Comments: REPORT [...] not documented On: 18-May-2019 14:00 Appointment; [facility] Encounter Diagnosis: Problem not documented On: [...]
[2019-12-08] MEDS ORDERED: ONDANSETRON HCL INJ 2MG/ML 2ML 2 MG/ML VIAL IV STA (23:11)
--- NOTE | 2019-12-08 23:16 | NUR ---
Pt states unable to produce specimen for UA at this time.
[2019-12-08 23:29] LABS: BASOPHILS % 0.1 % (0.0-1.0); EOSINOPHILS # (AUTO) 0.3 (0.0-0.4); EOSINOPHILS % 3.2 % (0.0-6.0); HEMATOCRIT 45.2 % (38.2-49.6); HEMOGLOBIN 15.4 g/dL (14.0-18.0); LYMPHOCYTES # (AUTO) 0.5 (1.0-3.2); LYMPHOCYTES % 6.9 % (18.0-39.1); MEAN CORPUSCULAR HEMOGLOBIN 34.7 pg (28-32); MEAN CORPUSCULAR HGB CONC 34.1 g/dL (31-35); MEAN CORPUSCULAR VOLUME 101.8 fL (81-99); MONOCYTES # (AUTO) 0.8 (0.2-0.8); MONOCYTES % 9.8 % (4.4-11.3); NEUTROPHILS # (AUTO) 6.3 (2.1-6.9); NEUTROPHILS % 79.7 % (38.7-80.0); PLATELET COUNT 120 x10e3/uL (140-360); RED BLOOD COUNT 4.44 x10e6/uL (4.3-5.7); RED CELL DISTRIBUTION WIDTH 13.7 % (11.7-14.4)
[2019-12-08 23:47] LABS: ALBUMIN 4.4 g/dL (3.5-5.0); ALBUMIN/GLOBULIN RATIO 1.2 (0.8-2.0); ANION GAP 19.3 mmol/L (8-16); CALCIUM 10.5 mg/dL (8.4-10.2); CREATININE, SERUM 2.29 mg/dL (0.72-1.25); POTASSIUM 4.3 mmol/L (3.5-5.1)
[2019-12-09] VITALS (9 sets, daily range): BP systolic 121–135; BP diastolic 55–64
--- NOTE | 2019-12-09 00:30 | NUR ---
pt unable to void. bladder scan performed per orders. 0cc noted. informed, straight cath ordered. straight cath performed at this time. 11cc clear yellow urine emptied from bladder. specimen collected and sent to lab. pt tolerated procedure s complaint. informed of findings.
[2019-12-09] MEDS ORDERED: DIATRIZOATE MEGL/DIATRIZOA SOD 30 ML BTL PO ONE (00:46)
[2019-12-09 00:52] LABS: AMYLASE 82 U/L (25-125)
[2019-12-09 01:08] LABS: LIPASE 10 U/L (8-78)
--- NOTE | 2019-12-09 01:30 | Diagnostic Imaging Report ---
CT Abdomen And Pelvis Without IV Contrast INDICATION: Abdominal pain, vomiting TECHNIQUE: 5 mm collimation axial images obtained from the diaphragm to the level of the pubic symphysis without nonionic intravenous contrast. Oral contrast was administered. RADIATION DOSE: Total DLP: 687.70 mGy*cm Estimated effective dose: (DLP x 0.015 x size factor) mSv CTDIvol has been reviewed. It is below the limits set by the Radiation Protocol Committee (RPC). Dose reduction techniques used: Automated exposure control, adjustment of the mAs and/or kVp according to patient size, standardized low-dose protocol, and/or iterative reconstruction technique. COMPARISON: CT abdomen/pelvis 10/09/2019. ABDOMEN FINDINGS: Lung Bases: The heart is enlarged and contains a pacemaker wire. There is a prosthetic mitral valve annulus. A calcification adjacent to the suprahepatic IVC is stable. No pericardial pleural effusions. Lung bases are clear.. Liver: Normal attenuation. Mildly lobulated contours. A subcentimeter low attenuating lesion in the left lobe on previous exam is not visible. Gallbladder: Absent. No ductal dilatation. Pancreas: Atrophic without mass or ductal dilatation. Spleen: Normal size and attenuation without mass. Adrenal Glands: No evidence for mass. Kidneys: Right Kidney: Multiple renal cysts. No calculus or hydronephrosis. Left Kidney: No renal calculus. No cortical mass or hydronephrosis. Lymph Nodes: No lymphadenopathy. Aorta: Diffusely calcified. Fusiform aneurysms of the suprarenal aorta and infrarenal aorta are stable with a 2 cm gap of normal diameter. No perinephric inflammation. PELVIS FINDINGS: Bowel: Stomach: Dilated with enteric contrast. No mural thickening. Small Bowel: Numerous dilated small bowel loops without enteric contrast. The transition point is within a large ventral abdominal wall hernia (series 2, image 70). There is no associated soft tissue mass. Distal to this, the small bowel is collapsed. No evidence of pneumatosis. Large Bowel: No large bowel dilatation. Diverticulosis coli. Appendix: Normal. Bladder: Collapsed. The prostate gland is enlarged with calcifications in the transition zone. Lymph Nodes: No lymphadenopathy. Peritoneum/retroperitoneum: No fluid collection or free air. Bones: Stable treated compression deformity of L3. No new compression deformities. No lytic or blastic lesions. Soft tissues: Large, broad-based ventral abdominal wall hernia is redemonstrated containing numerous small bowel loops and a portion of the large bowel. There is edema throughout the leaves of the small bowel mesentery within the hernia with a small amount of fluid in the hernia sac. Skin thickening along the right inguinal fold is redemonstrated without associated fluid collection. IMPRESSION: 1. High-grade small bowel obstruction with the transition point within a large ventral abdominal wall hernia. 2. Diverticulosis coli. 3. Stable abdominal aortic aneurysms. 4. 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 5. Cardiomegaly. Stable cardiac medical devices. Signed by: Dr. Jeremiah Delgado MD on 12/09/2019 1:26 AM
[2019-12-09 01:32] LABS: CLARITY,URINE HAZY (CLEAR); COLOR,URINE AMBER (YELLOW)
[2019-12-09 01:33] LABS: BACTERIA,URINE MANY /HPF; BILIRUBIN,URINE SMALL (NEGATIVE); KETONES,URINE NEGATIVE (NEGATIVE); LEUKOCYTE ESTERASE ,URINE NEGATIVE (NEGATIVE); NITRITE,URINE NEGATIVE (NEGATIVE); PROTEIN,URINE DIPSTICK 2+ (NEGATIVE); URINE UROBILINOGEN 0.2 mg/dL (0.2 - 1)
[2019-12-09 01:34] LABS: EPITHELIAL CELLS,URINE MODERATE /LPF
[2019-12-09] MEDS ORDERED: MORPHINE SULFATE 2 MG/ML SYR 1ML IV PRN (02:30)
[2019-12-09] MEDS ORDERED: ONDANSETRON HCL INJ 2MG/ML 2ML 2 MG/ML VIAL IV PRN (02:30)
[2019-12-09] MEDS ORDERED: SODIUM CHLORIDE 0.9% 1000ML 1,000 ML IV ONE (02:30)
[2019-12-09] MEDS: PIPERACILLIN/TAZO 2.25 GM 50 ML IV SCH ×2 (02:47→14:30)
[2019-12-09 03:04] LABS: INR 1.07; PROTHROMBIN TIME 14.6 seconds (11.9-14.5)
[2019-12-09 03:05] LABS: PARTIAL THROMBOPLASTIN TIME 31.6 seconds (23.8-35.5)
--- NOTE | 2019-12-09 03:20 | NUR ---
Received patient from the Emergency Room. Alert and conversant. Patient needs assistance to transfer from stretcher to bed with walker and 2 persons assist. NG Tube to left nares noted. Patient has IV to left ac 20 gauge with NS fluid at 100 cc/hr. Patient had a hard time signing paper works for admission. Can not remember home medications. Call singh within reached.
--- NOTE | 2019-12-09 03:25 | NUR ---
Patient doesn't know any medical history within the family.
--- NOTE | 2019-12-09 05:56 | NUR ---
Bladder Scan done 63 ml noted. Patient has no urge to void at this time.
[2019-12-09] MEDS ORDERED: ELIQUIS5 M1 PO (06:45)
[2019-12-09] MEDS ORDERED: FUROSEMIDE40 MG PO (06:46)
[2019-12-09] MEDS ORDERED: LISINOPRIL10 MG PO (06:47)
[2019-12-09] MEDS ORDERED: CRESTOR10 MG PO (06:47)
--- NOTE | 2019-12-09 07:00 | NUR ---
RCD PT AT BED PT IS ALERT AND ORIENTED PT RESTING ON BED NO SIGNS OF ANY DISTRESS NOTED PT NPO AND NG TUBE FOR LOW INTERMITTENT SUCTION BED LOW AND LOCKED CALL LIGHT IN REACH
--- NOTE | 2019-12-09 07:20 | Consultation ---
DATE OF CONSULTATION: 12/09/2019 HISTORY OF PRESENT ILLNESS: The patient is a 74-year-old male, who presents with complaints of abdominal pain with nausea and vomiting. The patient is very vague as far as when the symptoms started, but he vomited several times. He has had previous abdominal surgery as well as repair of abdominal aortic aneurysm and he has a large incisional hernia. CT of the abdomen and pelvis was done, which revealed a large hernia with small bowel obstruction, although obstruction not caused by incarceration of the hernia. PAST MEDICAL HISTORY: Significant for hypertension, atrial fibrillation, and hyperlipidemia. PAST SURGICAL HISTORY: He has had previous abdominal aortic aneurysm surgery, which he says it was in 2004, previous cholecystectomy, and AICD placement. He has also had previous mitral valve replacement. MEDICATIONS: He has been on Eliquis. Other medications are listed in the chart. ALLERGIES: HE HAS NO KNOWN ALLERGIES. FAMILY HISTORY: Noncontributory. SOCIAL HISTORY: The patient is a former smoker, quit many years ago. Occasionally drinks alcohol. REVIEW OF SYSTEMS: As stated above, otherwise was negative. PHYSICAL EXAMINATION: GENERAL: The patient is awake and alert. VITAL SIGNS: Normal. He is not tachycardic. HEENT: Sclerae is not icteric. NECK: No masses. LUNGS: Equal breath sounds are clear bilaterally. CARDIAC: Regular rhythm. ABDOMEN: Distended and tender, where the hernia is. Hernia is not reducible. It was very large hernia. EXTREMITIES: Have some changes of venous stasis in both lower extremities. Dorsalis pedis pulses are palpable bilaterally. NEUROLOGIC: Grossly intact. LABORATORY DATA: White blood cell count is normal. Hemoglobin and hematocrit are normal. Chemistries were elevated BUN 47 and creatinine 2.3. Amylase and lipase are normal. Liver function tests were normal. ASSESSMENT: A 74-year-old male with small bowel obstruction likely caused by adhesions. He has had a large hernia, but I do not think this is the cause of the obstruction. There are no signs of peritonitis. No signs of ischemic bowel. PLAN: At this point, recommend keeping the patient n.p.o. with the NG tube and IV fluids. Hopefully, obstruction resolve. Plan to repeat the abdominal x-ray later today. Thank you for asking me to see Mr. Edwards. MD LEANNA Foley/PAU /[id number]
[2019-12-09] MEDS ORDERED: HYDRALAZINE HCL 20 MG/ML VIAL IV PRN (08:45)
[2019-12-09] MEDS: FAMOTIDINE 20 MG/2 ML VIAL IV SCH ×3 (08:45→16:55)
[2019-12-09] MEDS: DEXTROSE 5%/0.45% SOD CHL 1,000 ML IV SCH ×2 (08:45→18:04)
[2019-12-09] MEDS ORDERED: MORPHINE SULFATE INJ 4 MG/ML INJ 1ML IV PRN (09:00)
--- NOTE | 2019-12-09 09:30 | NUR ---
INSERT HERNDON 18 FR AFTER VERIFIED ANOTHER RN IN ASEPTIC TECHNIQUE AND DRAINED 50 ML OF URINE MICHAEL COLOUR
--- NOTE | 2019-12-09 09:40 | History and Physical ---
PRIMARY CARE PHYSICIAN: Dr. Danny García. HAND BLOCKER: Dr. Jose Enrique Coles. CHIEF COMPLAINT: Incarcerated small bowel obstruction in the ventral hernia. HISTORY: The patient is a 74-year-old male came in with abdominal pain. He has an extensive abdominal surgery previously in repair abdominal aortic aneurysm that he has a large incisional hernia. The patient's CT scan in the emergency room found that the patient's abdomen has small bowel obstruction in the large incisional abdominal hernia area. The patient is otherwise stable. NG tube placed. He has a large amount of output. PAST MEDICAL HISTORY: Atrial fibrillation, hypertension, vascular disease. Mitral valve disease with previous replacement. Obesity. Extensive abdominal scar from previous surgery. Dyslipidemia. Hypertension. Anticoagulant therapy. PAST SURGICAL HISTORY: The patient has AICD placement. Mitral valve replacement. Abdominal aortic aneurysm repair. SOCIAL HISTORY: The patient quit smoking many years ago. No alcohol consumption. No recreational drug use. ALLERGIES: NO KNOWN ALLERGIES. HOME MEDICATIONS: The patient is on Eliquis, furosemide, lisinopril, and Crestor. PHYSICAL EXAMINATION: VITAL SIGNS: Temperature is 98, blood pressure 123/64, pulse rate 53, respirations 20. GENERAL: The patient is an awake, little confused, questionable dementia. NG tube in place. HEENT: Normocephalic and atraumatic. Anicteric. NECK: Supple grossly. PULMONARY: Diminished breath sounds without any wheezing. CARDIOVASCULAR: Regular rate and rhythm. ABDOMEN: Obesity. Extensive abdominal midline scar. There is tenderness to palpation. There is distention. Diminished bowel sounds. EXTREMITIES: No cyanosis or edema. NEUROLOGIC: The patient is awake, seems confused, but otherwise there is no other focal deficit. He is moving all extremities. He does follow commands. LABORATORY DATA: Sodium is 142, potassium 4.3, chloride 100, bicarb 27, BUN 47, creatinine 2.2, and glucose is 60. WBC 7.8, hemoglobin 15, hematocrit 45, and platelets 120. INR is 1.07, PTT 31.6. Total bilirubin 1.1, AST 27, ALT 19, alkaline phosphatase is 59. CT scan of abdomen showed that the patient does have a ventral hernia, incisional hernia with small bowel obstruction. PLAN: NG tube. Surgical intervention. Consultation with Dr. Jose Enrique Coles. Consultation with Cardiology, Dr. Jose Enrique Brown in case the patient is going to surgery. PPI. Antibiotics empirically. Pain control. SCD to the lower extremity. We will monitor the patient closely. We will obtain an echocardiogram. MD GEORGIE Johnson/PAU /[id number]
--- NOTE | 2019-12-09 11:35 | Consultation ---
DATE OF CONSULTATION: Cardiology Consultation CHIEF COMPLAINT: The patient is a 74-year-old with abdominal pain and small-bowel obstruction. HISTORY OF PRESENT ILLNESS: The patient is a 74-year-old who came to the emergency room with abdominal pain and vomiting. The patient was diagnosed with partial small-bowel obstruction and nasogastric tube was placed. The patient has had a long cardiac history including atrial fibrillation, previous mitral valve clipping, and abdominal aortic aneurysm repair. The patient is currently without chest pain, without shortness of breath. PAST MEDICAL HISTORY: Significant for: 1. Chronic atrial fibrillation. 2. Mitral valve clipping about a year ago for mitral regurgitation. 3. Previous abdominal aortic aneurysm repair. 4. Previous pacemaker placement. SOCIAL HISTORY: The patient does not smoke and does not drink. FAMILY HISTORY: There is a family history of coronary artery disease. PHYSICAL EXAMINATION: GENERAL: The patient is a well-developed, well-nourished male, in no obvious distress. Vital SIGNS: Included temperature of 98, blood pressure of 130/70, pulse was 60. HEAD, EARS, EYES, NOSE, AND THROAT: The patient's cranium was normocephalic, atraumatic. Extraocular muscles were intact. Sclerae were anicteric. NECK: Supple. No jugular venous distention. No carotid bruits. CHEST: Demonstrated rhonchi bilaterally. CARDIAC: Demonstrated an irregular rhythm with a short 2/6 systolic murmur. ABDOMINAL: Demonstrated a ventral hernia. There was some abdominal tenderness. EXTREMITIES: There is no clubbing, no cyanosis, no edema. NEUROLOGIC: The patient was awake and moving all extremities. DIAGNOSTIC DATA: The patient's EKG demonstrated an atrial fibrillation with a well-controlled ventricular response. IMPRESSION: The patient is a 74-year-old admitted for partial small bowel obstruction. The patient's cardiac status is currently stable. The patient remains in atrial fibrillation with a well-controlled ventricular response. RECOMMENDATIONS: As follows: 1. Echocardiogram has been ordered. 2. The patient will be started on Lovenox anticoagulation until he is able to resume his Eliquis. MD MARLENI Merida/PAU /[id number]
--- NOTE | 2019-12-09 14:50 | Diagnostic Imaging Report ---
EXAM: Abdomen [id number](s) INDICATION: ^small bowel obstruction ^[id number] ^1230 COMPARISON: CT abdomen pelvis dated 12/09/2019. FINDINGS: There is a NG tube extending to the stomach. Left basilar subsegmental atelectasis. Again seen are dilated loops of small bowel similar to same day CT suggestive of obstruction. No pneumoperitoneum. No abnormal abdominal calcifications. Degenerative changes are seen within the lumbar spine status post vertebroplasty. IMPRESSION: Unchanged dilated loops of small bowel similar to same day CT suggestive of obstruction. Signed by: Jose Manuel Baron MD on 12/09/2019 2:47 PM
--- NOTE | 2019-12-09 19:09 | NUR ---
PT RESTING ON BED BED SIDE REPORT GIVEN TO ONCOMING NURSE
[2019-12-09] MEDS: ENOXAPARIN SOD INJ 60 MG/0.6 ML SYR SC SCH (20:48)
[2019-12-10] VITALS (8 sets, daily range): BP systolic 129–161; BP diastolic 60–70
[2019-12-10] MEDS: PIPERACILLIN/TAZO 2.25 GM 50 ML IV SCH ×2 (02:00→14:30)
[2019-12-10] MEDS: DEXTROSE 5%/0.45% SOD CHL 1,000 ML IV SCH ×2 (04:40→14:45)
[2019-12-10 05:20] LABS: BASOPHILS % 0.3 % (0.0-1.0); EOSINOPHILS % 0.5 % (0.0-6.0); HEMATOCRIT 41.3 % (38.2-49.6); LYMPHOCYTES # (AUTO) 0.7 (1.0-3.2); LYMPHOCYTES % 11.4 % (18.0-39.1); MEAN CORPUSCULAR HEMOGLOBIN 34.1 pg (28-32); MEAN CORPUSCULAR HGB CONC 33.9 g/dL (31-35); MEAN CORPUSCULAR VOLUME 100.7 fL (81-99); MONOCYTES # (AUTO) 0.7 (0.2-0.8); MONOCYTES % 12.1 % (4.4-11.3); NEUTROPHILS # (AUTO) 4.4 (2.1-6.9); NEUTROPHILS % 75.2 % (38.7-80.0); PLATELET COUNT 107 x10e3/uL (140-360); RED CELL DISTRIBUTION WIDTH 13.8 % (11.7-14.4)
[2019-12-10 05:45] LABS: ALBUMIN 3.7 g/dL (3.5-5.0); ALBUMIN/GLOBULIN RATIO 1.2 (0.8-2.0); ANION GAP 14.9 mmol/L (8-16); CALCIUM 9.1 mg/dL (8.4-10.2); CREATININE, SERUM 1.73 mg/dL (0.72-1.25); POTASSIUM 3.9 mmol/L (3.5-5.1)
[2019-12-10 05:48] LABS: MAGNESIUM 1.7 MG/DL (1.3-2.1); PHOSPHORUS 3.2 MG/DL (2.3-4.7)
[2019-12-10 05:59] LABS: THYROID STIMULATING HORMONE 0.461 uIU/mL (0.350-4.940)
--- NOTE | 2019-12-10 07:05 | NUR ---
RCD PT AT BED PT IS ALERT AND ORIENTED PT RESTING ON BED NO SIGNS OF ANY DISTRESS NOTED PT NPO AND NG TUBE FOR LOW INTERMITTENT SUCTION AND HERNDON DRAINING BY GRAVITY BED LOW AND LOCKED CALL LIGHT IN REACH
--- NOTE | 2019-12-10 08:15 | Diagnostic Imaging Report ---
EXAMINATION: CHEST SINGLE (PORTABLE) INDICATION: ^ngt tube placement, abdominal distention ^[id number] ^0645 ^Y COMPARISON: Abdominal x-ray dated 12/09/2019 FINDINGS: AP view TUBES and LINES: Left chest wall single lead cardiac device in place. Distal tip projecting over right ventricle. NG tube in place with tip projecting over gastric fundus. LUNGS: Lungs are well inflated. Minimal left basilar opacification. PLEURA: No visible pneumothorax. Mild obscuration of the left costophrenic angle. HEART AND MEDIASTINUM: The cardiomediastinal silhouette is unremarkable. Aorta is calcified and tortuous. BONES AND SOFT TISSUES: No acute osseous lesion. Soft tissues are unremarkable. UPPER ABDOMEN: No free air under the diaphragm. IMPRESSION: Mild obscuration of the left costophrenic angle, could be due to mild atelectasis/scarring or trace left pleural effusion. Signed by: Dr. Khurram Shafer MD on 12/10/2019 8:11 AM
--- NOTE | 2019-12-10 08:18 | Diagnostic Imaging Report ---
EXAM: Abdomen 2 radiographs INDICATION: ^ngt tube placement, abdominal distention ^20191210 ^0645 ^Y COMPARISON: Abdominal x-ray dated 12/09/2019 FINDINGS: Nasogastric tube in place with tip projecting over gastric fundus. Dilated partially gas-filled small bowel loops are seen, mostly in the left abdomen. No signs of pneumoperitoneum. Moderate colonic stool burden, especially in the ascending colon. Rectal air is visualized. No acute osseous abnormality. Again seen L3 vertebroplasty. Degenerative changes of spine. Pelvic phleboliths. IMPRESSION: 1. Nasogastric tube in place with tip projecting over gastric fundus. 2. Persistent dilatation of small bowel loops. Signed by: Dr. Khurram Shafer MD on 12/10/2019 8:15 AM
[2019-12-10] MEDS: FAMOTIDINE 20 MG/2 ML VIAL IV SCH ×2 (09:00→17:00)
[2019-12-10] MEDS: ENOXAPARIN SOD INJ 60 MG/0.6 ML SYR SC SCH ×2 (09:00→21:43)
--- NOTE | 2019-12-10 10:02 | NUR ---
DC NG TUBE BY ORDER
--- NOTE | 2019-12-10 18:38 | NUR ---
PT RESTING ON BED BED SIDE REPORT GIVEN TO ONCOMING NURSE
--- NOTE | 2019-12-10 19:00 | NUR ---
Bedside report and rounds completed with off going nurse. Patient in bed with call light within reach. No issues or concerns at this time. Bed alarm on and active. Will continue to monitor closely.
[2019-12-11] VITALS (8 sets, daily range): BP systolic 113–129; BP diastolic 53–74
[2019-12-11] MEDS: DEXTROSE 5%/0.45% SOD CHL 1,000 ML IV SCH ×4 (03:00→23:30)
[2019-12-11] MEDS: PIPERACILLIN/TAZO 2.25 GM 50 ML IV SCH ×2 (03:30→13:56)
--- NOTE | 2019-12-11 06:00 | NUR ---
Patient vomiting yellow green bile about 150cc. Patient suctioned Ortequer suctioner, tolerated well. Will notify
--- NOTE | 2019-12-11 06:10 | NUR ---
Dr Coles on unit, will see patient.
--- NOTE | 2019-12-11 06:20 | NUR ---
NGT placed to left nare per Dr Coles orders. Patient tolerated well. Auscultated and green/ yellow bile noted when pull back on tube. Will do x-ray to verify placement
--- NOTE | 2019-12-11 07:07 | Diagnostic Imaging Report ---
Two view abdomen series. CPT 13143 CLINICAL HISTORY: Small bowel obstruction, NG tube placement TECHNIQUE: Flat and upright views of the abdomen obtained. COMPARISON: Abdomen series 12/10/2019. Medical Devices: Nasogastric tube terminates in the proximal stomach. AICD lead remains in the right ventricle. Stable surgical clips in the right upper quadrant. Bowel: Unremarkable bowel gas pattern. Dilated small bowel loops in the left hemiabdomen measure up to 5.6 cm (previously, 5.0 cm). No pneumatosis. Calcifications: None over the renal shadows or along the expected course of the ureters. Organomegaly: None Free air: None Lung: Patchy airspace opacities are similar. The heart is enlarged. The pulmonary vascular markings are prominent and stable. Bones: Diffusely demineralized. Stable treated compression fracture in L3 IMPRESSION: Increasing small bowel dilatation. Enteric tube terminates in the proximal stomach. Pulmonary airspace opacities are similar. Please correlate for signs/symptoms of pneumonia. Stable cardiomegaly. Signed by: Dr. Jeremiah Delgado MD on 12/11/2019 7:04 AM
--- NOTE | 2019-12-11 07:16 | NUR ---
Tube in place and connected to LIWS, Patient tolerating.
--- NOTE | 2019-12-11 07:23 | NUR ---
Bedside report and round completed with oncoming nurse. Patient in bed with call light within reach. No issues or concerns noted.
--- NOTE | 2019-12-11 07:24 | NUR ---
bedside shift change report received from PM nurse. pt in stable condition. IV and NG tube intact, NG connected to low intermittent suction. will continue to monitor.
[2019-12-11] MEDS ORDERED: MAGNESIUM SULF 1GRAM/DEXTROSE 100 ML IV SCH (09:00)
[2019-12-11] MEDS: ENOXAPARIN SOD INJ 60 MG/0.6 ML SYR SC SCH ×2 (09:07→20:37)
[2019-12-11] MEDS: FAMOTIDINE 20 MG/2 ML VIAL IV SCH ×2 (09:07→17:26)
--- NOTE | 2019-12-11 12:45 | NUR ---
pt pulled out IV; no IV access at this time.
--- NOTE | 2019-12-11 13:38 | NUR ---
new IV placed, 20G to left wrist. IV patent, intact.
--- NOTE | 2019-12-11 16:41 | NUR ---
250 CC URINE OUTPUT FROM HERNDON DOCUMENTED; FOUL ODOR NOTED. PAGED DR. JOHNSON REGARDING FINDINGS.
--- NOTE | 2019-12-11 19:30 | NUR ---
RECEIVED REPORT FROM PREVIOUS NURSE. PATIENT IN BED. BED ALARM ON AND CALL LIGHT WITHIN REACH. PATIENT IN NO DISTRESS
[2019-12-12] VITALS (7 sets, daily range): BP systolic 114–131; BP diastolic 59–65
[2019-12-12] MEDS: PIPERACILLIN/TAZO 2.25 GM 50 ML IV SCH ×2 (03:29→16:15)
--- NOTE | 2019-12-12 04:46 | NUR ---
HERNDON CARE PERFORMED
[2019-12-12] MEDS ORDERED: BUPIVACAINE HCL 0.5% INJ 30 ML VIAL INJ ONE (06:14)
[2019-12-12] MEDS ORDERED: BACITRACIN 50,000 UNIT VIAL ONE (06:14)
--- NOTE | 2019-12-12 06:39 | NUR ---
PATIENT LEFT VIA STRETCHER FOR SURGERY. PATIENT IN NO PAIN OR DISTRESS. NG TUBE SUCTION AND IV FLUIDS STOPPED FOR SURGERY.
[2019-12-12] MEDS: DEXTROSE 5%/0.45% SOD CHL 1,000 ML IV SCH ×2 (06:45→16:15)
--- NOTE | 2019-12-12 06:50 | NUR ---
received change of shift report from PM nurse; pt gone for surgery. IV fluids on hold.
[2019-12-12] MEDS ORDERED: ONDANSETRON HCL INJ 2MG/ML 2ML 2 MG/ML VIAL IV PRN (08:30)
[2019-12-12] MEDS ORDERED: SUGAMMADEX SODIUM 200 MG/2 ML VIAL IV ONE (08:30)
[2019-12-12] MEDS: FAMOTIDINE 20 MG/2 ML VIAL IV SCH ×2 (09:00→16:16)
[2019-12-12] MEDS ORDERED: FENTANYL CITRATE/PF 100MCG/2 ML INJ ONE ×2 (09:11→19:39)
--- NOTE | 2019-12-12 09:14 | Operative Report ---
DATE OF PROCEDURE: 12/12/2019 SURGEON: Jose Enrique Coles MD PREOPERATIVE DIAGNOSES: Small bowel obstruction, recurrent incisional hernia. POSTOPERATIVE DIAGNOSES: Small bowel obstruction, recurrent incisional hernia, the same obstruction caused by adhesions. PROCEDURE: Lysis of adhesions with release of small bowel obstruction, repair of recurrent incisional hernia with mesh. EMERGENCY MEDICINE PHYSICIAN: None. ANESTHESIA: General endotracheal. INDICATIONS AND FINDINGS: The patient is a 74-year-old male, presenting with complaints of abdominal pain, nausea, and vomiting. Workup revealed small bowel obstruction. The patient failed nonoperative therapy. At surgery, the patient was found to have dilated proximal bowel, collapsed distal bowel with the point of obstruction being caused by adhesive band. This was lysed freeing the bowel completely. Bowel in this area appears somewhat thinned out requiring some repair. There was adhesions also involving omentum, which were lysed and there was a large hernia defect with a fascial defect that was approximately 6 x 15 cm. TECHNIQUE: After adequate general endotracheal anesthesia, the patient in supine position, the abdomen was prepped and draped in a sterile fashion with ChloraPrep solution. A midline incision was made starting in the upper abdomen, carried down to the area where the hernia was, carried in the subcutaneous tissue. The herniated mass extending all the way to the skin with very little subcutaneous tissue and the hernia sac was entered. As the incision was made, there was dilated bowel that was seen. Incision was extended inferiorly. The dilated bowel was followed distally and point of obstruction was identified, caused by adhesive band. The adhesion was lysed freeing the bowel completely. The bowel was followed distally, which was all collapsed with a few other adhesions being lysed until the bowel was completely free. Proximally, the bowel was all dilated, but all appeared viable with no other adhesions noted involving the bowel. Area where the obstruction had been, the bowel was somewhat thinned out and this was repaired by the seromuscular sutures of 3-0 Vicryl. The bowel was examined once again. All appeared viable remaining adhesions, which involved the omentum within the hernia sac into the abdominal wall were lysed, so the fascial defect was completely delineated. The defect was about 6 x 15 cm. A Sepramesh of appropriate size was soaked in antibiotic solution and sutured to the undersurface of the fascia and peritoneum with running horizontal mattress suture of #1 Prolene, sutures taken 3 cm from the edge of the defect. This was done throughout circumference of the hernia defect. Care was taken not to entrap the underlying bowel. Once the mesh was in place, the wound was irrigated with antibiotic solution, inspected for hemostasis, which was seen to be adequate. It was irrigated once again with antibiotic solution, inspected for hemostasis, which was seen to be adequate. A 19-Icelandic Sky drain was placed into the subcutaneous tissue through a separate stab wound incision. The skin was then closed with siva. Sterile dressing was applied. The patient tolerated the procedure well. Estimated blood loss was 100 mL. There were no complications. All counts were correct. The patient was taken to the recovery room in satisfactory condition. MD LEANNA Foley/PAU /[id number] cc: MD Danny Johnson
--- NOTE | 2019-12-12 09:42 | NUR ---
received report from OR; pt in stable condition, coming back to room 101. Report as follows: pt had lysis of adhesions, incision repair recurrent incisional hernia with mesh, repair of SBO. pt had IV placed to right AC, 20 gauge, received total of 1200 ml fluids. pt has siva to left abdomen with island dressing, 19 Jamaican PAMELA drain with 30 cc emptied. 30 cc emptied from [place]. Pt has low continuous suction to NG tube in left nare. He received Pt's spouse was notified by . Pt received 25 mcg Fentanyl at 0905 for pain. last set of vital signs: BP 132/73, HR 85, RR 18, O2 sat 100% on 2L NC. pt on telemetry. Awaiting pt's arrival back to room 101. Addendum: 12/12/19 at 1000 by Angelo Minaya RN correction: no new IV placed. pt still has 20 gauge IV to left wrist
--- NOTE | 2019-12-12 09:56 | NUR ---
pt arrived from OR to room 101. pt in stable condition.
--- NOTE | 2019-12-12 10:10 | NUR ---
per telemetry, pt had run of Vtach. informed MG Gamble for Dr. Brown who is at pt's bedside. orders placed for bloodwork; she states pt has lot of PVC's at this time. will continue to monitor.
[2019-12-12 10:31] LABS: BASOPHILS % 0.3 % (0.0-1.0); EOSINOPHILS # (AUTO) 0.1 (0.0-0.4); EOSINOPHILS % 1.3 % (0.0-6.0); HEMATOCRIT 38.6 % (38.2-49.6); LYMPHOCYTES # (AUTO) 0.8 (1.0-3.2); LYMPHOCYTES % 9.5 % (18.0-39.1); MEAN CORPUSCULAR HEMOGLOBIN 34.5 pg (28-32); MEAN CORPUSCULAR HGB CONC 33.7 g/dL (31-35); MEAN CORPUSCULAR VOLUME 102.4 fL (81-99); MONOCYTES # (AUTO) 0.6 (0.2-0.8); MONOCYTES % 6.5 % (4.4-11.3); NEUTROPHILS # (AUTO) 7.1 (2.1-6.9); NEUTROPHILS % 81.7 % (38.7-80.0); PLATELET COUNT 116 x10e3/uL (140-360); RED BLOOD COUNT 3.77 x10e6/uL (4.3-5.7); RED CELL DISTRIBUTION WIDTH 13.4 % (11.7-14.4)
[2019-12-12 10:39] LABS: ANION GAP 12.2 mmol/L (8-16); CALCIUM 8.4 mg/dL (8.4-10.2); CREATININE, SERUM 1.45 mg/dL (0.72-1.25); POTASSIUM 3.2 mmol/L (3.5-5.1)
[2019-12-12] MEDS: SODIUM CHLORIDE 0.9% 250ML IRRIG IR SCH ×4 (10:59→22:32)
--- NOTE | 2019-12-12 11:07 | NUR ---
spoke with MG Gamble who states order 20MEq Potassium given lab findings and order Phosphorus level and follow-up.
[2019-12-12] MEDS ORDERED: POTASSIUM CHLORIDE 20MEQ/100ML 100 ML IV ONE ×2 (11:15→12:30)
--- NOTE | 2019-12-12 15:32 | NUR ---
performed bedside bladder scan given minimal amount of urine output; only [address] Jose Enrique Brown at pt's bedside. informed him of findings. no new orders. will continue to monitor.
[2019-12-12] MEDS ORDERED: LIDOCAINE HCL 2% LOCAL INJ 5 ML SDV VIAL INJ ONE (17:37)
[2019-12-12] MEDS ORDERED: SEVOFLURANE INHAL SOLN 250 ML PEN BTL ONE (17:37)
[2019-12-12] MEDS ORDERED: SUCCINYLCHOLINE CHLORIDE 20 MG/ML 10ML VIAL ONE (17:37)
[2019-12-12] MEDS ORDERED: PROPOFOL IV EMULSION 10 MG/ML 20 ML VIAL ONE (17:37)
[2019-12-12] MEDS ORDERED: ONDANSETRON HCL INJ 2MG/ML 2ML 2 MG/ML VIAL ONE (17:37)
[2019-12-12] MEDS ORDERED: GLYCOPYRROLATE INJ 0.2 MG/ML VIAL ONE (17:37)
[2019-12-12] MEDS ORDERED: ROCURONIUM BROMIDE 10 MG/ML 5ML VIAL IV ONE (17:37)
[2019-12-12] MEDS ORDERED: NEOSTIGMINE 1 MG/ML 10ML VIAL ONE (17:37)
--- NOTE | 2019-12-12 19:10 | NUR ---
RECEIVED REPORT FROM PREVIOUS NURSE. CALL LIGHT WITHIN REACH. PATIENT IN BED. PATIENT IN NO DISTRESS
--- NOTE | 2019-12-12 22:20 | NUR ---
HERNDON CARE PERFORMED
[2019-12-13] MEDS: DEXTROSE 5%/0.45% SOD CHL 1,000 ML IV SCH ×3 (01:15→14:05)
[2019-12-13] MEDS: PIPERACILLIN/TAZO 2.25 GM 50 ML IV SCH ×2 (02:13→15:35)
[2019-12-13] MEDS: SODIUM CHLORIDE 0.9% 250ML IRRIG IR SCH ×6 (02:13→22:00)
[2019-12-13 04:35] VITALS: BP 118/62
[2019-12-13 06:04] LABS: ANION GAP 13.1 mmol/L (8-16); CALCIUM 8.3 mg/dL (8.4-10.2); CREATININE, SERUM 1.72 mg/dL (0.72-1.25); POTASSIUM 4.1 mmol/L (3.5-5.1)
[2019-12-13 06:05] LABS: BASOPHILS % 0.2 % (0.0-1.0); EOSINOPHILS # (AUTO) 0.1 (0.0-0.4); EOSINOPHILS % 1.2 % (0.0-6.0); HEMATOCRIT 35.1 % (38.2-49.6); HEMOGLOBIN 11.8 g/dL (14.0-18.0); LYMPHOCYTES # (AUTO) 0.7 (1.0-3.2); MEAN CORPUSCULAR HEMOGLOBIN 34.4 pg (28-32); MEAN CORPUSCULAR HGB CONC 33.6 g/dL (31-35); MEAN CORPUSCULAR VOLUME 102.3 fL (81-99); MONOCYTES # (AUTO) 0.8 (0.2-0.8); MONOCYTES % 10.3 % (4.4-11.3); NEUTROPHILS # (AUTO) 6.3 (2.1-6.9); NEUTROPHILS % 77.9 % (38.7-80.0); PLATELET COUNT 102 x10e3/uL (140-360); RED BLOOD COUNT 3.43 x10e6/uL (4.3-5.7); RED CELL DISTRIBUTION WIDTH 13.5 % (11.7-14.4)
--- NOTE | 2019-12-13 06:55 | NUR ---
Received patient lying in bed with eyes open. Urinary catheter intact, in placed. PAMELA drain intact, in placed to left abd. Left nare NG tube intact attached to low suction. Call light in reach.
--- NOTE | 2019-12-13 07:38 | NUR ---
GAVE REPORT TO ONCOMING NURSE. CALL LIGHT WITHIN REACH. PATIENT IN BED. PATIENT IN NO PAIN OR DISTRESS
[2019-12-13 08:06] VITALS: BP 118/62
[2019-12-13 08:34] VITALS: BP 128/60
[2019-12-13] MEDS: FAMOTIDINE 20 MG/2 ML VIAL IV SCH ×2 (09:24→18:46)
[2019-12-13 12:00] VITALS: BP 141/65
[2019-12-13 16:43] VITALS: BP 143/62
[2019-12-13] MEDS: ENOXAPARIN SOD INJ 40 MG/0.4 ML SYR SC SCH (18:46)
--- NOTE | 2019-12-13 18:55 | NUR ---
Report given to deicer kit assembler. Respiration even and unlabored without SOB. call light in reach.
[2019-12-13 21:45] VITALS: BP 136/63
--- NOTE | 2019-12-13 21:45 | NUR ---
PATIENT RESTING IN BED IN STABLE CONDITION, NO SIGNS OF DISTRESS NOTED. NG TUBE IS INTACT AND FLOWING AT LOW SUCTION, AND PATIENT VOICES NO PAIN AT THIS TIME. IV FLUIDS ARE RUNNING AT ORDERED RATE AND HERNDON CATHETER IS PATENT AND INTACT, STRAW COLORED URINE NOTED. ABDOMINAL DRESSING IS CLEAN, DRY AND INTACT, NO DRAINAGE NOTED, PAMELA DRAIN DISPLAYS SEROUS FLUID. BED IS IN LOWEST POSITION, BOTH SIDE RAILS ARE UP, CALL LIGHT IS WITHIN EASY REACH, WILL CONTINUE TO MONITOR.
[2019-12-14] VITALS (8 sets, daily range): BP systolic 129–160; BP diastolic 56–72
[2019-12-14] MEDS: SODIUM CHLORIDE 0.9% 250ML IRRIG IR SCH ×3 (02:30→08:59)
[2019-12-14] MEDS: PIPERACILLIN/TAZO 2.25 GM 50 ML IV SCH ×2 (02:30→15:46)
[2019-12-14 05:24] LABS: EOSINOPHILS # (AUTO) 0.1 (0.0-0.4); HEMATOCRIT 34.6 % (38.2-49.6); HEMOGLOBIN 11.7 g/dL (14.0-18.0); MEAN CORPUSCULAR HEMOGLOBIN 34.3 pg (28-32); MEAN CORPUSCULAR HGB CONC 33.8 g/dL (31-35); MEAN CORPUSCULAR VOLUME 101.5 fL (81-99); MONOCYTES # (AUTO) 0.8 (0.2-0.8); NEUTROPHILS # (AUTO) 7.2 (2.1-6.9); PLATELET COUNT 101 x10e3/uL (140-360); RED BLOOD COUNT 3.41 x10e6/uL (4.3-5.7); RED CELL DISTRIBUTION WIDTH 13.4 % (11.7-14.4)
[2019-12-14 05:45] LABS: ANION GAP 10.8 mmol/L (8-16); BLOOD UREA NITROGEN 42 mg/dL (7-26); BUN/CREATININE RATIO 40 (6-25); CALCIUM 8.5 mg/dL (8.4-10.2); CARBON DIOXIDE 25 mmol/L (22-29); CHLORIDE 110 mmol/L (98-107); CREATININE, SERUM 1.05 mg/dL (0.72-1.25); EST GLOMERULAR FILTRATION RATE > 60 ML/MIN (60-); GLUCOSE 126 mg/dL (74-118); POTASSIUM 3.8 mmol/L (3.5-5.1); SODIUM 142 mmol/L (136-145)
--- NOTE | 2019-12-14 06:50 | NUR ---
Received patient lying in bed with eyes open. Respiration even and unlabored without SOB. Call light in reach.
[2019-12-14] MEDS: DEXTROSE 5%/0.45% SOD CHL 1,000 ML IV SCH ×2 (08:59→22:50)
[2019-12-14] MEDS: FAMOTIDINE 20 MG/2 ML VIAL IV SCH ×2 (08:59→15:47)
--- NOTE | 2019-12-14 13:17 | NUR ---
Urinary rueda catheter discontinued as ordered 2 days- post op. Catheter tip intact. Due to void at 19:17 pm.
[2019-12-14] MEDS: ENOXAPARIN SOD INJ 40 MG/0.4 ML SYR SC SCH (15:47)
--- NOTE | 2019-12-14 19:13 | NUR ---
Report given to casino shift manager. Respiration even and unlabored without SOB. call light in reach.
--- NOTE | 2019-12-14 20:20 | NUR ---
PATIENT RESTING IN BED IN STABLE CONDITION, NO SIGNS OF DISTRESS NOTED. NG TUBE HAS BEEN REMOVED PREVIOUSLY AND PATIENT VOICES NO PAIN AT THIS TIME. IV FLUIDS ARE RUNNING AT ORDERED RATE AND HERNDON CATHETER HAS BEEN PREVIOUSLY REMOVED AND AWAITING FOR PATIENT TO URINATE. ABDOMINAL DRESSING IS CLEAN, DRY AND INTACT, NO DRAINAGE NOTED, PAMELA DRAIN DISPLAYS SEROUS FLUID. BED IS IN LOWEST POSITION, BOTH SIDE RAILS ARE UP, CALL LIGHT IS WITHIN EASY REACH, WILL CONTINUE TO MONITOR.
--- NOTE | 2019-12-14 22:36 | NUR ---
PATIENT SUCCESSFULLY VOIDED IN DIAPER AFTER HERNDON REMOVED PREVIOUSLY.
[2019-12-15] VITALS (9 sets, daily range): BP systolic 92–155; BP diastolic 53–82
[2019-12-15] MEDS: PIPERACILLIN/TAZO 2.25 GM 50 ML IV SCH ×2 (02:29→14:30)
--- NOTE | 2019-12-15 07:30 | NUR ---
RECD PT UP IN BED SLEEPING,NO S/S DISCOMFORT.
[2019-12-15] MEDS ORDERED: HYDROCODONE/APAP 5MG-325MG TAB PO PRN (08:00)
[2019-12-15] MEDS: FAMOTIDINE 20 MG/2 ML VIAL IV SCH ×2 (08:00→18:17)
[2019-12-15 09:05] LABS: BASOPHILS % 0.3 % (0.0-1.0); EOSINOPHILS # (AUTO) 0.2 (0.0-0.4); EOSINOPHILS % 2.2 % (0.0-6.0); HEMATOCRIT 34.6 % (38.2-49.6); HEMOGLOBIN 11.6 g/dL (14.0-18.0); LYMPHOCYTES % 11.6 % (18.0-39.1); MEAN CORPUSCULAR HEMOGLOBIN 34.2 pg (28-32); MEAN CORPUSCULAR HGB CONC 33.5 g/dL (31-35); MEAN CORPUSCULAR VOLUME 102.1 fL (81-99); MONOCYTES # (AUTO) 0.6 (0.2-0.8); MONOCYTES % 6.8 % (4.4-11.3); NEUTROPHILS # (AUTO) 6.8 (2.1-6.9); NEUTROPHILS % 77.3 % (38.7-80.0); PLATELET COUNT 116 x10e3/uL (140-360); RED BLOOD COUNT 3.39 x10e6/uL (4.3-5.7); RED CELL DISTRIBUTION WIDTH 13.4 % (11.7-14.4)
[2019-12-15 09:22] LABS: ANION GAP 11.4 mmol/L (8-16); BLOOD UREA NITROGEN 28 mg/dL (7-26); BUN/CREATININE RATIO 34 (6-25); CALCIUM 8.5 mg/dL (8.4-10.2); CARBON DIOXIDE 24 mmol/L (22-29); CHLORIDE 111 mmol/L (98-107); CREATININE, SERUM 0.83 mg/dL (0.72-1.25); EST GLOMERULAR FILTRATION RATE > 60 ML/MIN (60-); GLUCOSE 102 mg/dL (74-118); POTASSIUM 3.4 mmol/L (3.5-5.1); SODIUM 143 mmol/L (136-145)
[2019-12-15 09:43] LABS: MAGNESIUM 1.8 MG/DL (1.3-2.1); PHOSPHORUS 2.3 MG/DL (2.3-4.7)
--- NOTE | 2019-12-15 16:37 | NUR ---
Nutrition Intervention Note RD Recommendation(s) for Physician: -Advance to GI soft diet when medically appropriate -Ensure Clear BID for added nutrition Plan of Care: RD following, monitoring for tolerance and adequacy Nutrition reason for involvement: Length of stay and NPO/Clear Liquid diet > [address] Assessment (12/15/19) Pt is a 74 year old male admitted with renal insufficiency, SBO, and UTI. On 12/11, pt had a procedure which involved release of SBO, lysis of adhesions, and hernia incisional repair. Pt is currently on a clear liquid diet and reports he is tolerating the diet. Pt reports he had been eating 50% of his meals for 3-4 days prior to admission. Pt has been on a NPO/clear liquid diet for >4 days. No weight loss reported and pt mentioned he usually weighs 205-210 lbs. No N/V at this time and no chewing/swallowing issues. Will continue to monitor Principal Problems/Diagnoses: renal insufficiency, SBO, and UTI. PMH: atrial fibrillation, hypertension, vascular disease, Mitral valve disease with previous replacement, Obesity, Dyslipidemia, Hypertension, Anticoagulant therapy I/O: 1270/400 GI: large, round, distended, abdomen, flatus - absent Skin: no pressure ulcers Labs: (12/15/19) K 3.4, BUN 28 Meds: pepcid, antibiotic, lovenox, metoprolol, zofran, hydralazine Ht: 70 in Wt: 210 lbs BMI: 30.1 kg/m2 IBW: 166 lbs Malnutrition Evaluation (12/15/19) The patient does not meet criteria for a specified degree of malnutrition at this time. Will re-evaluate at follow-up as appropriate. Energy intake: <50% of estimated energy requirements for >5 days Weight loss: No weight loss reported Fat loss: unable to evaluate Muscle loss: unable to evaluate Supporting Evidence: Fluid accumulation: unable to evaluate Functional Status: unable to evaluate Nutrition Prescription (Diet Order): clear liquids Estimated Nutritional Needs: 9208-7857 calories/day (22-25 kcal/kg IBW) 113-151 g protein/day (1.5-2 g pro/kg IBW, Diet Adequacy: Not meeting calorie needs, Not meeting protein needs Tolerance: Tolerating PO per pt report Diet Education Needs Assessment: Diet education not indicated, patient on temporary/transition diet. Nutrition Care Level: moderate Nutrition Diagnosis: Inadequate energy intake related to decreased ability to consume sufficient energy secondary to SBO as evidenced by NPO/clear liquid diet > 4 days. Goal: Patient will meet 75-100% of estimated needs by follow up Progress: N/A Interventions: fiber-modified diet, Commercial beverage Monitoring/Evaluation: -Total energy intake, Total protein intake, Modified diet, Liquid supplement, Weight change Signed: Samantha Bello RD, LD
[2019-12-15] MEDS: METOPROLOL TARTRATE 25 MG TAB PO SCH (17:00)
[2019-12-15] MEDS: ENOXAPARIN SOD INJ 40 MG/0.4 ML SYR SC SCH (18:18)
[2019-12-16] VITALS (8 sets, daily range): BP systolic 108–142; BP diastolic 51–70
[2019-12-16] MEDS: DEXTROSE 5%/0.45% SOD CHL 1,000 ML IV SCH (00:56)
[2019-12-16] MEDS: PIPERACILLIN/TAZO 2.25 GM 50 ML IV SCH (02:00)
--- NOTE | 2019-12-16 07:20 | NUR ---
PT IN BED SLEEPING NO DISTRESS NOTED,DR GRAY HERE
--- NOTE | 2019-12-16 09:00 | NUR ---
assisted pt up to chair tolerated well min assist.toleratred well
[2019-12-16] MEDS: FAMOTIDINE 20 MG/2 ML VIAL IV SCH ×2 (09:10→17:15)
[2019-12-16] MEDS: METOPROLOL TARTRATE 25 MG TAB PO SCH ×2 (09:10→17:18)
[2019-12-16] MEDS ORDERED: MAGNESIUM SULFATE 2GM/50ML 50 ML IV ONE (09:30)
[2019-12-16] MEDS ORDERED: POTASSIUM PHOSPHATE 20 MM in SODIUM CHLORIDE 0.9% 250ML 250 ML IV SCH (10:00)
--- NOTE | 2019-12-16 10:30 | NUR ---
PT ASSISTED BACK TO BED TOLERATED WEELL
[2019-12-16] MEDS: POTASSIUM CHLORIDE 10MEQ EA PO SCH ×4 (10:54→19:07)
--- NOTE | 2019-12-16 12:04 | NUR ---
Called and spoke with pt's Everett Edwards at [phone] regarding dc plan. Pt lives with . Has walker, cane, wheelchair, and sleep chair at home. Previously with [facility], but not on service at this time. Discussed plan of SNF vs home with home health. Pt's said she would prefer to take pt home if he is able to get up by himself and able to walk. Would like to use [facility] again if pt returns home. Will ask therapy if they can work with pt today to help to maximize mobility to return home safely.
--- NOTE | 2019-12-16 12:30 | NUR ---
AMBULATED PT IN [place] UNSTEADY GAIT,DID WELL
[2019-12-16] MEDS: ENOXAPARIN SOD INJ 40 MG/0.4 ML SYR SC SCH (17:18)
--- NOTE | 2019-12-16 17:21 | NUR ---
PT UP IN CHAIR DENIES PAIN ,NO DISTRESS NOTED.
[2019-12-16] MEDS ORDERED: ONDANSETRON HCL 4 MG ORAL DISINTEGRATING TAB PO PRN (17:45)
[2019-12-16] MEDS: BALSAM PERU/CASTOR OIL 60 GM OINT...G. TP SCH (19:08)
[2019-12-16] MEDS ORDERED: POTASSIUM CHLORIDE 10MEQ EA ONE (19:10)
[2019-12-17] VITALS (11 sets, daily range): BP systolic 116–151; BP diastolic 59–72
[2019-12-17] MEDS: DEXTROSE 5%/0.45% SOD CHL 1,000 ML IV SCH (00:58)
[2019-12-17] MEDS: FAMOTIDINE 20 MG/2 ML VIAL IV SCH ×2 (08:38→16:35)
[2019-12-17] MEDS: METOPROLOL TARTRATE 25 MG TAB PO SCH ×2 (08:39→17:00)
[2019-12-17] MEDS: BALSAM PERU/CASTOR OIL 60 GM OINT...G. TP SCH ×2 (11:01→16:35)
[2019-12-17] MEDS: ENOXAPARIN SOD INJ 40 MG/0.4 ML SYR SC SCH (16:35)
--- NOTE | 2019-12-17 17:49 | NUR ---
1725-PT ON FLOOR. FOUND BY ARTIST'S REPRESENTATIVE. STATES WAS TRYING TO GO TO BED FROM CHAIR. CALL LIGHT WAS WITH IN REACH. PT ASSISTED BACK TO BED. VITAL SIGNS OBTAINED. LACERATION TO BACK OF HEAD ASSESSED. DR. JOHNSON NOTIFIED. ORDERS RECEIVED AND CARRIED OUT. FERRIS WHEEL ATTENDANT NOTIFIED. CHARGE NURSE AT BEDSIDE ASSESSING PT.
--- NOTE | 2019-12-17 19:00 | NUR ---
PATIENT'S CALLED REGARDING FALL.
--- NOTE | 2019-12-17 19:19 | Diagnostic Imaging Report ---
HIPS BILAT TWO VWS(+/- PELVIS) - 3 views HISTORY: Pain COMPARISON: Abdominal x-ray dated 12/10/2019 FINDINGS: No evidence of acute displaced fracture or dislocation of the bilateral hips. Surgical drain in place with tip projecting over L4 inferior endplate. There are also surgical siva projecting over lower lumbar spine and left pelvis. Right pelvic phleboliths. Degenerative changes of the SI joints and lower lumbar spine. L3 vertebral body compression deformity with evidence of vertebroplasty. Atherosclerotic calcification of distal abdominal aorta. IMPRESSION: No evidence of acute displaced fracture or dislocation of the bilateral hips. Signed by: Dr. Khurram Shafer MD on 12/17/2019 7:16 PM
--- NOTE | 2019-12-17 19:28 | Diagnostic Imaging Report ---
EXAMINATION: Head CT HISTORY: Status post fall, alteration of consciousness, renal insufficiency COMPARISON: None available TECHNIQUE: Helical axial images of the head were obtained. Reformatted coronal and sagittal images from the axial data. Dose modulation, iterative reconstruction, and/or weight based adjustment of the mA/kV was utilized to reduce the radiation dose to as low as reasonably achievable. Image quality: Motion/streaking artifact limits the evaluation of the skull base and posterior cranial fossa. FINDINGS: Parenchyma: 1. Few scattered hepatic hypodensities, most likely nonspecific chronic microvascular ischemic changes. 2. Physiologic calcification of the globi pallidi 3. No mass or hemorrhage. No CT evidence of acute territorial vascular insult. Extra-axial spaces:No abnormal density. No extra-axial fluid collections Brain volume: Mild generalized brain volume loss Ventricles: No hydrocephalus or displacement. Arteries: No density suggestive of thrombus. Dural sinuses: No abnormal density. Foramen magnum: No mass, Chiari malformation, or basilar invagination. Sella: No obvious mass. Paranasal/mastoid sinuses: Soft tissue density lesion in the bilateral superior naso-ethmoid regions may correspond to nasal polyps, papillomas or neoplasm. Skull/Scalp: No lytic or blastic lesions. No fractures. IMPRESSION: 1. No acute post traumatic intracranial abnormalities, particularly no hemorrhage. 2. Mild white matter chronic microvascular ischemic changes. 3. Incidentally noted small bilateral superior nasoethmoidal regions probable polyps. Signed by: Dr. Madeline Bruno M.D. on 12/17/2019 7:24 PM
[2019-12-18 04:00] VITALS: BP 118/57
[2019-12-18 05:46] LABS: BASOPHILS % 0.4 % (0.0-1.0); EOSINOPHILS # (AUTO) 0.2 (0.0-0.4); EOSINOPHILS % 1.9 % (0.0-6.0); HEMOGLOBIN 10.2 g/dL (14.0-18.0); LYMPHOCYTES # (AUTO) 1.3 (1.0-3.2); MEAN CORPUSCULAR HEMOGLOBIN 34.3 pg (28-32); MONOCYTES # (AUTO) 0.4 (0.2-0.8); MONOCYTES % 4.5 % (4.4-11.3); NEUTROPHILS # (AUTO) 5.9 (2.1-6.9); NEUTROPHILS % 74.8 % (38.7-80.0); PLATELET COUNT 129 x10e3/uL (140-360); RED BLOOD COUNT 2.97 x10e6/uL (4.3-5.7); RED CELL DISTRIBUTION WIDTH 13.3 % (11.7-14.4)
[2019-12-18 06:03] LABS: ANION GAP 11.8 mmol/L (8-16); BLOOD UREA NITROGEN 14 mg/dL (7-26); BUN/CREATININE RATIO 19 (6-25); CALCIUM 7.8 mg/dL (8.4-10.2); CARBON DIOXIDE 24 mmol/L (22-29); CHLORIDE 111 mmol/L (98-107); CREATININE, SERUM 0.72 mg/dL (0.72-1.25); EST GLOMERULAR FILTRATION RATE > 60 ML/MIN (60-); GLUCOSE 87 mg/dL (74-118); POTASSIUM 3.8 mmol/L (3.5-5.1); SODIUM 143 mmol/L (136-145)
--- NOTE | 2019-12-18 07:00 | NUR ---
RECEIVED PATIENT AWAKE RESTING IN BED. NO S/S OF DISTRESS. BED LOW, WHEELS LOCKED, SIDE RAILS X2. CALL LIGHT IN REACH WILL CONTINUE TO MONITOR PATIENT.
[2019-12-18] MEDS: FAMOTIDINE 20 MG/2 ML VIAL IV SCH (08:03)
[2019-12-18] MEDS: METOPROLOL TARTRATE 25 MG TAB PO SCH ×2 (08:04→17:06)
[2019-12-18] MEDS: BALSAM PERU/CASTOR OIL 60 GM OINT...G. TP SCH ×2 (08:04→16:55)
[2019-12-18 08:05] VITALS: BP 114/56
[2019-12-18 08:21] VITALS: BP 114/56
--- NOTE | 2019-12-18 09:07 | NUR ---
CALLED AFTER SPEAKING WITH DR JOHNSON, CHOSE [facility] IN [place], FILLED OUT CHOICE AND FILED IN CHART. OBTAINED SIGNATURE FOR COVID FORM COMPLETE PASRR AND RTF.
[2019-12-18 11:36] VITALS: BP 124/58
--- NOTE | 2019-12-18 11:52 | NUR ---
CALLED AND STATES ABSOLUTELY REFUSES SNF WANTS TO GO HOME WITH [facility]. LET KNOW ABLE TO ADMIT TO SNF FOR 7 DAYS IF DOES NOT WORK OUT AT HOME. LET NURSE AND DR JOHNSON KNOW.
--- NOTE | 2019-12-18 14:22 | NUR ---
REFERRAL FAXED TO [facility] @ OFF: [phone] / FAX: [phone]
[2019-12-18 16:30] VITALS: BP 115/51
[2019-12-18] MEDS: FAMOTIDINE 20 MG TAB PO SCH (17:06)
[2019-12-18] MEDS: ENOXAPARIN SOD INJ 40 MG/0.4 ML SYR SC SCH (17:06)
[2019-12-18 20:00] VITALS: BP_SYST 105; BP_SYST 136; BP_DIAS 62; BP_DIAS 72
[2019-12-19] VITALS (8 sets, daily range): BP systolic 108–147; BP diastolic 45–76
[2019-12-19 05:08] LABS: BASOPHILS % 0.5 % (0.0-1.0); EOSINOPHILS # (AUTO) 0.1 (0.0-0.4); EOSINOPHILS % 1.6 % (0.0-6.0); HEMATOCRIT 29.9 % (38.2-49.6); HEMOGLOBIN 10.1 g/dL (14.0-18.0); LYMPHOCYTES # (AUTO) 1.3 (1.0-3.2); LYMPHOCYTES % 16.1 % (18.0-39.1); MEAN CORPUSCULAR HEMOGLOBIN 34.4 pg (28-32); MEAN CORPUSCULAR HGB CONC 33.8 g/dL (31-35); MEAN CORPUSCULAR VOLUME 101.7 fL (81-99); MONOCYTES # (AUTO) 0.3 (0.2-0.8); NEUTROPHILS # (AUTO) 6.4 (2.1-6.9); NEUTROPHILS % 76.6 % (38.7-80.0); PLATELET COUNT 132 x10e3/uL (140-360); RED BLOOD COUNT 2.94 x10e6/uL (4.3-5.7); RED CELL DISTRIBUTION WIDTH 13.3 % (11.7-14.4)
[2019-12-19 05:28] LABS: ANION GAP 5.7 mmol/L (8-16); BLOOD UREA NITROGEN 13 mg/dL (7-26); BUN/CREATININE RATIO 18 (6-25); CALCIUM 8.1 mg/dL (8.4-10.2); CARBON DIOXIDE 27 mmol/L (22-29); CHLORIDE 112 mmol/L (98-107); CREATININE, SERUM 0.74 mg/dL (0.72-1.25); EST GLOMERULAR FILTRATION RATE > 60 ML/MIN (60-); GLUCOSE 88 mg/dL (74-118); POTASSIUM 3.7 mmol/L (3.5-5.1); SODIUM 141 mmol/L (136-145)
[2019-12-19] MEDS: FAMOTIDINE 20 MG TAB PO SCH ×2 (07:47→17:02)
[2019-12-19] MEDS: BALSAM PERU/CASTOR OIL 60 GM OINT...G. TP SCH ×2 (07:54→17:10)
[2019-12-19] MEDS: METOPROLOL TARTRATE 25 MG TAB PO SCH ×2 (07:54→17:10)
--- NOTE | 2019-12-19 09:14 | NUR ---
SPOKE WITH AND DR JOHNSON, SHE IS STILL WANTING TO TAKE HIM HOME. DR JOHNSON LET THEM KNOW HE WILL REPEAT THE CATSCAN AND THE PT IS SCHEDULED TO DISCHARGE TOMORROW.
--- NOTE | 2019-12-19 11:04 | Diagnostic Imaging Report ---
History:Fall Comparison studies:CT head 12/17/2019 Technique: Axial images were obtained from the skull base to the vertex. Coronal and sagittal images reconstructed from the axial data. Intravenous contrast: None Dose modulation, iterative reconstruction, and/or weight based adjustment of the mA/kV was utilized to reduce the radiation dose to as low as reasonably achievable. Findings: Scalp/skull: No abnormalities. Extra-axial spaces: No masses. No fluid collections. Brain sulci: Moderately prominent. Ventricles: Mild compensatory dilatation. No hydrocephalus. Parenchyma: Scattered small hypodensities in the supratentorial white matter are small vessel ischemic changes. No masses, hemorrhage, acute or chronic cortical vascular insults. Sellar/suprasellar region: No abnormalities. Craniocervical junction: Patent foramen magnum. No Chiari one malformation. Incidental findings: Atherosclerotic calcifications in the carotid siphons and vertebral arteries . Soft tissue density at the anterior and superior nasal cavity involving the olfactory recesses, likely related to polyps, stable Impression: No acute abnormalities. No significant change from previous examination Chronic findings: 1. Moderate cortical generalized volume loss. 2. Mild supratentorial white matter small vessel ischemic changes. 3. Olfactory recesses soft tissue opacification, could related to polyps, other etiologies cannot be ruled out, nonemergent direct visualization recommended Signed by: DR Daniel Montaño M.D. on 12/19/2019 11:01 AM
--- NOTE | 2019-12-19 17:00 | NUR ---
PATIENT WENT TO THE BATHROOM WITH WALKER AND NURSE ASSIST. WENT TO HAVE A BM. PER PHYSICAL THERAPY EARLIER IN THE DAY, HE NEEDED ASSIST TO AMBULATE BUT WAS SAFE TO SIT UP. WHILE ON THE TOILET, HE REQUESTED WIPES TO ASSIST IN CLEANING. I STEPPED OUT TO GET WIPES REMINDED HIM NOT TO ATTEMPT TO GET UP UNTIL I CAME BACK,AFTER CLIPPING THE CALL LIGHT TO HIS GOWN SO IF HE ATTEMPTED TO GET UP IT WOULD CALL, AND SOON I CAME OUT OUT THE SUPPLY ROOM THE CALL LIGHT WENT OFF. I RUSHED TO THE BATHROOM TO FIND HIM PRONE ON THE FLOOR, ON HIS HANDS AND ABDOMEN, FEET ON EACH SIDE OF THE TOILET, URINE ON THE FLOOR. . BROOKE CAME IN AND WE LIFTED HIM TO THE WHEEL CHAIR. HE HAS A SMALL SCRAPE TO THE BRIDGE OF HIS NOSE, A SMALL SCRAPE TO BOTH KNEES AND LEFT HAND NEAR HIS THUMB. ASSISTED BACK TO BED, CLEANED OF URINE, AND MADE COMFORTABLE. NO CHANGES IN NURO SIGNS. DR. JOHNSON NOTIFIED. PATIENT THEN SAID HE WAS HUNGRY SO I SAT HIM UP AND PREPARED HIS TRAY FOR HIM TO EAT. WILL CONTINUE TO MONITOR
--- NOTE | 2019-12-19 19:00 | NUR ---
RECEIVED REPORT FROM PREVIOUS NURSE. CALL LIGHT WITHIN REACH. PATIENT IN BED. PAMELA DRAINING WELL
[2019-12-20 00:44] VITALS: BP 126/65
[2019-12-20 04:21] VITALS: BP 134/63
--- NOTE | 2019-12-20 07:08 | NUR ---
GAVE BEDSIDE SHIFT REPORT TO ONCOMING NURSE. CALL LIGHT WITHIN REACH. PATIENT IN BED. BED ALARM ON THROUGHOUT SHIFT.
[2019-12-20 07:24] VITALS: BP 130/66
--- NOTE | 2019-12-20 07:42 | NUR ---
CALLED THIS MORNING AND STATES SHE KNOWS HE FELL AGAIN BUT STATES SHE HAS BEEN DEALING WITH THAT AT HOME AND STILL WANTS HIM TO COME HOME. LET HER KNOW I WOULD SPEAK WITH THE DOCTOR AND LET HIM KNOW. I WILL CALL HER BACK IF ANYTHING CHANGES.
[2019-12-20] MEDS: FAMOTIDINE 20 MG TAB PO SCH (08:30)
[2019-12-20] MEDS ORDERED: MIDODRINE 2.5 MG TAB PO SCH (09:00)
[2019-12-20] MEDS ORDERED: BALSAM PERU/CASTOR OIL 60 GM OINT...G. TP SCH (09:00)
[2019-12-20] MEDS: METOPROLOL TARTRATE 25 MG TAB PO SCH (10:00)
--- NOTE | 2019-12-20 10:04 | Discharge Summary ---
PRIMARY CARE PHYSICIAN: Dr. Danny García. CONSULTANTS: 1. Dr. Jose Enrique Coles. 2. Dr. Jose Enrique Brown. FINAL DIAGNOSES: 1. Small bowel obstruction with recurrent incisional hernia, status post lysis of adhesion with release of small bowel obstruction, repair of recurrent incisional hernia with mesh. Procedure was done by Dr. Jose Enrique Coles on December 09, 2019. 2. Urinary tract infection associated with altered mental status, consistent with toxic encephalopathy on admission. 3. Urinary tract infection. 4. Recurrent falls both at home and here. The patient was on anticoagulant therapy, not a candidate for anticoagulant therapy with recurrent falls. Orthostasis hypotension. The patient and spouse refused skilled facility recommendation and want to go home with home health. 5. Atrial fibrillation, rate control. 6. Chronic atrial fibrillation. SUMMARY: The patient is a 74-year-old male, came in with urinary tract infection. He also has abdominal pain, bowel obstruction. He was confused, had urinary tract infection, signs and symptoms consistent with toxic encephalopathy, but he was with sepsis. The patient, however, had abdominal distention and small bowel obstruction on CT scan, associated with recurrent incisional hernia, subsequently underwent lysis of adhesion and release of small bowel obstruction and repair of recurrent incisional hernia. The patient remained with PAMELA drain. He while hospitalization continued with antibiotic and he finished a course. Currently, he is back to baseline, although he has episode of confusion, which has been his baseline as well. On discharge planning, discussed with the patient because of his recurrent falls, discussed with the patient's spouse, and they both refuse for skilled placement at [facility]. The patient also fell at home, but he was on anticoagulant therapy. The Eliquis will be discontinued for now. His PAMELA drain will be managed with home health and also to follow up with Dr. Jose Enrique Coles. The patient is otherwise stable. He does have some dizziness upon standing and reason for his fall. Midodrine is started. The patient is stable. He is comfortable. He will go home today. He will follow up with Dr. Coles for PAMELA drain management. Home health has been arranged. He is accepted to [facility] and he can go to go [facility] within the next week or so if spouse and the patient decide to do so at home and they just need to call, caseworker has already given the instruction. The patient will discharge home today. DISCHARGE MEDICATIONS: 1. Resume home medication with furosemide. 2. Discontinue Eliquis for now because the patient is with recurrent fall. 3. Midodrine 2.5 mg t.i.d. 4. Pepcid 20 mg b.i.d. 5. Lopressor 25 mg b.i.d. 6. Tylenol No. 3. p.r.n. 7. Zofran 4 mg sublingual q.6 hours p.r.n. 8. Potassium 20 mEq daily. FOLLOWUP: The patient will follow up with his family physician, Dr. Jose Enrique Coles, and Dr. Jose Enrique Brown within 1 to 2 weeks. The patient is otherwise stable, discharged home today. Follow up as instructed. Please review caseworker's note on discharge planning. MD GEORGIE Johnson/PAU /[id number]
--- NOTE | 2019-12-20 10:22 | NUR ---
TELEPHONED MD GRAY TO CLARIFY IF PT IS TO GO HOME WITH PAMELA OR NOT, AWAITING CALL BACK
[2019-12-20 10:24] VITALS: BP 130/66
[2019-12-20 11:31] VITALS: BP 140/76
--- NOTE | 2019-12-20 12:16 | NUR ---
PT WHEELED OFF UNIT VIA WC FOR DISCHARGE, NO CHANGE IN CONDITION,
--- NOTE | 2019-12-20 12:25 | NUR ---
IMM EXPLAINED TO PT, SIGNED BY PT AND PLACED IN CHART COPY OF IMM GIVEN TO PT
--- NOTE | 2019-12-20 13:01 | NUR ---
SPOKE WITH AT [phone], MADE AWARE THAT NURSE FORGOT TO PLACE RX IN DISCHARGE FOLDER, PHARMACY NUMBER GIVEN, PRESCRIPTIONS FAXED TO [phone],
== END 2019-12-20 12:06 | disposition home health service (06) | DRG 335 ==
LOC: ER 22:54 → ERHOLD 12-09 03:11 → MED/SURG 12-09 03:20
PROVIDERS: ADMIT Internal Medicine; ATTEND Internal Medicine
PROC: 0DN80ZZ Release Small Intestine, Open Approach (ICD-10-PCS; principal; 2019-12-12 07:00)
PROC: 0WUF0JZ Supplement Abdominal Wall with Synthetic Substitute, Open Approach (ICD-10-PCS; 2019-12-12 07:00)
DX: K56.50 Intestinal adhesions [bands], unspecified as to partial versus complete obstruction (principal); G93.41 Metabolic encephalopathy; I48.20 Chronic atrial fibrillation, unspecified; N17.9 Acute kidney failure, unspecified; K43.2 Incisional hernia without obstruction or gangrene; I10 Essential (primary) hypertension; Z95.810 Presence of automatic (implantable) cardiac defibrillator
CPT/HCPCS: 36415; 70450; 71045; 73521; 74019; 74176; 80048; 80053; 81001; 82150; 82607; 82746; 83690; 83735; 84100; 84443; 85007; 85025; 85027; 85610; 85730; 93005; 93306; 96360; 96361; 97139; 99251; 99285; C1781; J0330; J1650; J2001; J2270; J2405; J2543; J2710; J3010; J3475; J3480; J7030; J7050

== ENCOUNTER 2019-12-23 17:47 | Observation (INO) | payer MEDICARE ==
[~2019-12-23] VITALS: Ht 177.8 cm; Wt 95.3 kg
[~2019-12-23 17:47] MED LIST changes: +CRESTOR10 MG PO; +ELIQUIS5 M1 PO; +FUROSEMIDE40 MG PO; +LISINOPRIL10 MG PO
--- OUTSIDE RECORDS SUMMARY | 2019-12-23 18:00 | XMS REPORT | Summary of Care ---
Author Geoff Jack [facility] Unknown Address Unknown Phone Unavailable Care Team Providers Care Classification Case Manager Name Role Phone JUANITA Gaines.Rhonda, BRAULIO Unavailable Unavailable MIGDALIA Garcia, HARRIS Unavailable Unavailable ILIA Garcia, LOUIS Unavailable Unavailable MARÍA VAZ NV, DASHAWN ROBERSON Unavailable Unavailable Rolan VAZ, Iftikhar Unavailable Unavailable DANNY VZA NV, FREDY Unavailable Unavailable JUANITA MALDONADO NV, BRAULIO Unavailable Unavailable ILIA VAZ, LOUIS Unavailable Unavailable JAQUELINE HUA, VENITA Unavailable Unavailable KESHIA VAZ, MIKKI Schafer Unavailable Unavailable MARÍA Garcia, DASHAWN Unavailable Unavailable WERO GOODWIN, LOVE Unavailable Unavailable MARCO VAZ NV, ANEL Unavailable Unavailable MIGDALIA VAZ NV, HARRIS A Unavailable Unavailable Unavailable Unavailable Functional [...] L98.429) Status: Active Dyspnea on exertion (786.09, R06.00) Status: Active Severe mitral regurgitation (424.0, I34.0) [...] W/EGFR Date: 30-Oct-2019 [QL] GGT Date: 30-Oct-2019 History of Hernia Repair Completed History of Cholecystectomy Completed History of Percutaneous Vertebral Augmentation Kyphoplasty Completed 12-Apr-2018 History of Abdominal aortic aneurysm repair Completed Immunization Name Dates Details Tdap on: Sep-2001 Influenza on: 27-Jun-2012 Fluzone INJ Lot #: [id number] on: 05-Jun-2013 Fluzone INJ on: 06-Jun-2014 Fluzone INJ on: 21-May-2015 Prevnar 13 Intramuscular Suspension Lot #: [id number] on: 28-Jun-2015 Fluzone Quadrivalent 0.5 ML Intramuscular Suspension Prefilled Syringe Lot #: [id number] on: 12-May-2016 Pneumovax 23 25 MCG/0.5ML Injection Injectable Lot #: [id number] on: 08-Jul-2016 Fluzone Quadrivalent 0.5 ML Intramuscular Suspension Prefilled Syringe Lot #: [id number] on: 18-May-2017 Fluzone Quadrivalent 0.5 ML Intramuscular Suspension Prefilled Syringe Lot #: [id number] on: 11-May-2018 Tdap (Boostrix) Lot #: [id number] on: 02-Aug-2018 Fluzone High-Dose 0.5 ML Intramuscular Suspension Prefilled Syringe Lot #: [id number] on: 14-Jun-2019 Family History Name Dates Details [...] not documented On: 29-Jun-2018 15:00 Appointment; LOUIS OMRILLO M.D. Encounter Diagnosis: Problem not documented On: [...] Problem not documented On: 18-May-2019 14:00 Appointment; [facility] Encounter Diagnosis: Problem not documented [...]
--- OUTSIDE RECORDS SUMMARY | 2019-12-23 18:00 | XMS REPORT | Summary of Care ---
Author Geoff Jack [facility] Unknown Address Unknown Phone Unavailable Care Team Providers Care Defective Cigarette Slitter Name Role Phone JUANITA Gaines.Rhonda, BRAULIO Unavailable [...] Unavailable Unavailable WERO GOODWIN, LOVE Unavailable Unavailable AMRCO VAZ W[place], ANEL Unavailable Unavailable MIGDALIA VAZ [...] Influenza on: 27-Jun-2012 Fluzone INJ Lot #: [id number] on: 05-Jun-2013 Fluzone INJ on: 06-Jun-2014 Fluzone INJ on: 21-May-2015 Prevnar 13 Intramuscular Suspension Lot #: [id number] on: 28-Jun-2015 Fluzone Quadrivalent 0.5 ML Intramuscular Suspension Prefilled Syringe Lot #: [id number] on: 12-May-2016 Pneumovax 23 25 MCG/0.5ML Injection Injectable Lot #: [id number] on: 08-Jul-2016 Fluzone Quadrivalent 0.5 ML Intramuscular Suspension Prefilled Syringe Lot #: [id number] on: 18-May-2017 Fluzone Quadrivalent 0.5 ML Intramuscular Suspension Prefilled Syringe Lot #: [id number] on: 11-May-2018 Tdap (Boostrix) Lot #: [id number] on: 02-Aug-2018 Fluzone High-Dose 0.5 ML Intramuscular Suspension Prefilled Syringe Lot #: [id number] on: 14-Jun-2019 Family History Name Dates Details [...] Problem not documented On: 18-May-2019 14:00 Appointment; [facility] Encounter Diagnosis: Problem not documented On: [...]
[2019-12-23 18:13] LABS: BASOPHILS % 0.2 % (0.0-1.0); EOSINOPHILS # (AUTO) 0.1 (0.0-0.4); EOSINOPHILS % 0.9 % (0.0-6.0); HEMATOCRIT 33.4 % (38.2-49.6); HEMOGLOBIN 11.3 g/dL (14.0-18.0); LYMPHOCYTES # (AUTO) 1.1 (1.0-3.2); LYMPHOCYTES % 11.7 % (18.0-39.1); MEAN CORPUSCULAR HEMOGLOBIN 34.6 pg (28-32); MEAN CORPUSCULAR HGB CONC 33.8 g/dL (31-35); MEAN CORPUSCULAR VOLUME 102.1 fL (81-99); MONOCYTES # (AUTO) 0.6 (0.2-0.8); MONOCYTES % 6.7 % (4.4-11.3); NEUTROPHILS # (AUTO) 7.2 (2.1-6.9); NEUTROPHILS % 80.1 % (38.7-80.0); PLATELET COUNT 184 x10e3/uL (140-360); RED BLOOD COUNT 3.27 x10e6/uL (4.3-5.7)
[2019-12-23 18:24] LABS: INR 0.98; PROTHROMBIN TIME 13.6 seconds (11.9-14.5)
[2019-12-23 18:25] LABS: PARTIAL THROMBOPLASTIN TIME 34.9 seconds (23.8-35.5)
[2019-12-23 18:34] LABS: ALANINE AMINOTRANSFERASE 15 IU/L (0-55); ALBUMIN 2.8 g/dL (3.5-5.0); ALBUMIN/GLOBULIN RATIO 0.7 (0.8-2.0); ALKALINE PHOSPHATASE 79 IU/L (40-150); ANION GAP 12.3 mmol/L (8-16); BLOOD UREA NITROGEN 11 mg/dL (7-26); BUN/CREATININE RATIO 10 (6-25); CALCIUM 9.8 mg/dL (8.4-10.2); CARBON DIOXIDE 30 mmol/L (22-29); CHLORIDE 103 mmol/L (98-107); CREATINE KINASE 37 IU/L (30-200); CREATININE, SERUM 1.08 mg/dL (0.72-1.25); EST GLOMERULAR FILTRATION RATE > 60 ML/MIN (60-); GLUCOSE 106 mg/dL (74-118); POTASSIUM 4.3 mmol/L (3.5-5.1); SODIUM 141 mmol/L (136-145)
--- NOTE | 2019-12-23 18:56 | Diagnostic Imaging Report ---
EXAMINATION: CHEST SINGLE (PORTABLE) INDICATION: Fall, altered mental status. COMPARISON: Chest radiograph 12/10/2019. CT abdomen/pelvis 10/09/2019. FINDINGS: TUBES and LINES: Left chest wall single lead pacemaker with lead overlying the right ventricle. Interval removal of enteric tube. LUNGS: Lungs are well inflated. Unchanged minimal patchy left basilar opacity, which may represent atelectasis or scarring. No evidence of pulmonary edema. A 4 mm nodular opacity overlying the right lower lung, corresponding to pulmonary nodule on CT abdomen/pelvis from 10/09/2019. PLEURA: No evidence of pleural effusion or pneumothorax. HEART AND MEDIASTINUM: The cardiomediastinal silhouette is unremarkable. There are atherosclerotic calcifications within the aorta. BONES AND SOFT TISSUES: No acute osseous lesion. Soft tissues are unremarkable. UPPER ABDOMEN: No free air under the diaphragm. IMPRESSION: No acute radiographic abnormality. A 4 mm right lower lobe pulmonary nodule, which does not require follow-up in a low risk patient. If the patient has a risk factor for malignancy, an optional follow-up chest CT may be considered in 12 months. Signed by: Dr. Crow Jade MD on 12/23/2019 6:53 PM
--- NOTE | 2019-12-23 18:59 | Diagnostic Imaging Report ---
Exam: AP radiograph of the pelvis-2 views History: Fall. Comparison: None. Findings/Impression: No evidence of acute fracture or malalignment. Surgical siva project over the midline lower abdomen and pelvis. Partially seen catheter overlying the left hemipelvis. Signed by: Dr. Crow Jade MD on 12/23/2019 6:56 PM
--- NOTE | 2019-12-23 19:05 | Diagnostic Imaging Report ---
Exams: Head and cervical spine CTs without IV contrast History: Weakness, dizziness, fall Comparison studies: Head CT 12/17/2019 Technique: Axial images were obtained from the brain and cervical spine. Coronal and sagittal images reconstructed from the axial data. Dose modulation, iterative reconstruction, and/or weight based adjustment of the mA/kV was utilized to reduce the radiation dose to as low as reasonably achievable. Radiation dose: Total DLP: 1252.85 mGy*cm. Estimated effective dose: DLP x 0.015 Intravenous contrast: None Findings: Head CT: Scalp: No abnormalities. Bones: No fractures, blastic or lytic lesions. Extra-axial spaces: No mass or fluid collection. Incidental prominent extra-axial CSF spaces along the cerebral and cerebellar convexities. Brain sulci: Mildly prominent. Ventricles: Mild compensatory dilatation. No hydrocephalus. Parenchyma: No mass, acute hemorrhage or acute or chronic cortical insults. Scattered hypodensities in the supratentorial white matter are nonspecific but are most compatible with chronic microvascular ischemic changes. Sellar/suprasellar region: No abnormalities. Craniocervical junction: The foramen magnum is patent. No Chiari one malformation. Incidental findings: Unchanged opacified left middle ethmoid air cell with partially opacified anterior superior nasal cavity, likely polyps which can be correlated with direct visualization. Cervical spine CT: Fractures: None. Soft tissues: No gross abnormalities. Atlantoaxial articulation: Intact. Alignment: Normal cervical lordosis. Mild dextro cervical curvature is nonspecific. The subluxations. Cervicomedullary junction: No abnormalities. The foramen magnum is patent. Vertebrae: No infection or neoplasm. Degenerative changes: Moderate foraminal stenosis and moderate foraminal stenosis on the right at C5-C6 and C6-C7 due to uncovertebral arthrosis. Incidental findings: Partially imaged leads from a presumed cardiac device implanted in the left chest wall. Scattered calcified atherosclerosis with calcified plaque in the carotid bulbs (left greater than right), carotid siphons and intradural vertebral arteries. IMPRESSION: Head CT: 1. No acute abnormalities. 2. No changes from the prior head CT of 12/19/2019. 3. Generalized precarinal volume loss. 4. Mild chronic microvascular ischemic changes. Cervical spine CT: 1. No acute abnormalities. 2. Cannot exclude ligament, spinal cord and or vascular abnormalities on the basis of this examination. Signed by: Dr. Jose Enrique Baca M.D. on 12/23/2019 7:02 PM
[2019-12-23 19:26] LABS: CLARITY,URINE CLEAR (CLEAR); COLOR,URINE YELLOW (YELLOW)
[2019-12-23 19:27] LABS: BILIRUBIN,URINE NEGATIVE (NEGATIVE); KETONES,URINE NEGATIVE (NEGATIVE); LEUKOCYTE ESTERASE ,URINE NEGATIVE (NEGATIVE); NITRITE,URINE NEGATIVE (NEGATIVE); PROTEIN,URINE DIPSTICK NEGATIVE (NEGATIVE); URINE UROBILINOGEN 0.2 mg/dL (0.2 - 1)
[2019-12-23] MEDS ORDERED: ASPIRIN 81 MG CHEW TAB PO ONE (19:30)
[2019-12-23 19:35] LABS: BACTERIA,URINE FEW /HPF; EPITHELIAL CELLS,URINE FEW /LPF; RBC,URINE 0-5 /HPF (0-5)
[2019-12-23] MEDS: SODIUM CHLORIDE 0.9% 1000ML 1,000 ML IV SCH (19:40)
[2019-12-23 19:55] VITALS: BP 134/60
[2019-12-23 20:04] VITALS: BP 115/95
[2019-12-24] VITALS (8 sets, daily range): BP systolic 111–138; BP diastolic 47–65
[2019-12-24] MEDS: SODIUM CHLORIDE 0.9% 1000ML 1,000 ML IV SCH (03:00)
[2019-12-24 03:51] LABS: CREATINE KINASE MB 1.4 ng/mL (0-5.0)
[2019-12-24 04:11] LABS: BASOPHILS % 0.3 % (0.0-1.0); EOSINOPHILS # (AUTO) 0.1 (0.0-0.4); EOSINOPHILS % 1.3 % (0.0-6.0); HEMATOCRIT 29.1 % (38.2-49.6); HEMOGLOBIN 9.8 g/dL (14.0-18.0); LYMPHOCYTES # (AUTO) 0.9 (1.0-3.2); LYMPHOCYTES % 14.3 % (18.0-39.1); MEAN CORPUSCULAR HEMOGLOBIN 34.1 pg (28-32); MEAN CORPUSCULAR HGB CONC 33.7 g/dL (31-35); MEAN CORPUSCULAR VOLUME 101.4 fL (81-99); MONOCYTES # (AUTO) 0.5 (0.2-0.8); MONOCYTES % 7.4 % (4.4-11.3); NEUTROPHILS # (AUTO) 4.8 (2.1-6.9); NEUTROPHILS % 76.4 % (38.7-80.0); PLATELET COUNT 155 x10e3/uL (140-360); RED BLOOD COUNT 2.87 x10e6/uL (4.3-5.7); RED CELL DISTRIBUTION WIDTH 13.9 % (11.7-14.4)
[2019-12-24 04:24] LABS: ALANINE AMINOTRANSFERASE 10 IU/L (0-55); ALBUMIN 2.4 g/dL (3.5-5.0); ALBUMIN/GLOBULIN RATIO 0.6 (0.8-2.0); ALKALINE PHOSPHATASE 72 IU/L (40-150); ANION GAP 12.7 mmol/L (8-16); BLOOD UREA NITROGEN 9 mg/dL (7-26); BUN/CREATININE RATIO 11 (6-25); CALCIUM 8.3 mg/dL (8.4-10.2); CARBON DIOXIDE 25 mmol/L (22-29); CHLORIDE 106 mmol/L (98-107); CREATININE, SERUM 0.81 mg/dL (0.72-1.25); EST GLOMERULAR FILTRATION RATE > 60 ML/MIN (60-); GLUCOSE 97 mg/dL (74-118); POTASSIUM 3.7 mmol/L (3.5-5.1); SODIUM 140 mmol/L (136-145)
[2019-12-24] MEDS: MECLIZINE HCL 12.5 MG TAB PO SCH ×2 (09:23→16:44)
[2019-12-24] MEDS: APIXAB 2.5 MG TABLET PO SCH ×2 (09:23→16:41)
[2019-12-24] MEDS: METOPROLOL TARTRATE 25 MG TAB PO SCH ×2 (09:23→16:42)
--- NOTE | 2019-12-24 09:34 | Consultation ---
DATE OF CONSULTATION: Cardiology Consultation CHIEF COMPLAINT: The patient is a 74-year-old, with dizziness and several falls. HISTORY OF PRESENT ILLNESS: The patient was recently admitted to [facility] with a small bowel obstruction, had a surgical repair. The patient was discharged several days ago and returned to the ER last night with dizziness and vertigo with turning his head. The patient has reported several falls at home. The patient had no chest pain and no shortness of breath. No fevers. PAST MEDICAL HISTORY: Significant for: 1. Chronic atrial fibrillation. 2. Sick sinus syndrome and previous permanent pacemaker. 3. Previous mitral valve clipping. 4. Hypertension. SOCIAL HISTORY: The patient lives at home with his . The patient does not drink. FAMILY HISTORY: There is a known family history of coronary artery disease. PHYSICAL EXAMINATION: GENERAL: The patient is a well-developed, well-nourished male, in no obvious distress. VITAL SIGNS: Included temperature of 97.9, pulse is 60, and blood pressure 138/65. HEAD, EARS, EYES, NOSE, AND THROAT: The patient's cranium was normocephalic and atraumatic. Extraocular muscles were intact. Sclerae were anicteric. Pupils were equal, round, and reactive to light. There was no pallor or cyanosis of the oral mucosa. No erythema or edema of the throat. NECK: Supple. No jugular venous distention. No carotid bruits. CHEST: Demonstrated rhonchi bilaterally. CARDIAC: Demonstrated normal S1, S2. There is a short 2/6 systolic murmur. ABDOMEN: The patient had no tenderness, no masses. EXTREMITIES: There is no clubbing, no cyanosis, and no edema. NEUROLOGIC: The patient did appear awake and alert and was able to converse. The patient was moving all of his extremities. DIAGNOSTIC DATA: EKG demonstrated ventricular pacing. IMPRESSION: The patient is a 74-year-old with positional vertigo and frequent falls. RECOMMENDATIONS: 1. The patient will be started on meclizine for his positional vertigo. 2. The patient will be hydrated with IV fluids and his home Lasix will be held. 3. The patient's home medications have been restarted with the exception of the Lasix. Jose Enrique Brown MD [facility]/MODL /[id number] cc: Esau Lozada MD
[2019-12-24 11:33] LABS: CREATINE KINASE MB 1.4 ng/mL (0-5.0)
[2019-12-24] MEDS: POTASSIUM CHLORIDE 10MEQ EA PO SCH (11:50)
[2019-12-24] MEDS: FUROSEMIDE 40 MG TAB PO SCH (11:50)
[2019-12-24] MEDS: MIDODRINE 2.5 MG TAB PO SCH ×2 (11:53→16:44)
[2019-12-24] MEDS: SIMVASTATIN 20 MG TAB PO SCH (20:32)
[2019-12-24] MEDS ORDERED: SIMVASTATIN 40 MG TAB PO SCH (21:00)
[2019-12-25] VITALS (8 sets, daily range): BP systolic 110–126; BP diastolic 52–97
[2019-12-25] MEDS: APIXAB 2.5 MG TABLET PO SCH ×2 (08:30→17:11)
[2019-12-25] MEDS: FUROSEMIDE 40 MG TAB PO SCH (08:30)
[2019-12-25] MEDS: MECLIZINE HCL 12.5 MG TAB PO SCH ×2 (08:30→17:11)
[2019-12-25] MEDS: POTASSIUM CHLORIDE 10MEQ EA PO SCH (08:30)
[2019-12-25] MEDS: METOPROLOL TARTRATE 25 MG TAB PO SCH ×2 (08:30→17:12)
[2019-12-25] MEDS: MIDODRINE 2.5 MG TAB PO SCH ×3 (08:30→17:11)
[2019-12-25] MEDS: SIMVASTATIN 20 MG TAB PO SCH (21:45)
[2019-12-26 04:40] VITALS: BP 116/49
[2019-12-26 08:07] VITALS: BP 125/59
[2019-12-26 08:17] VITALS: BP 125/59
[2019-12-26] MEDS: APIXAB 2.5 MG TABLET PO SCH (08:56)
[2019-12-26] MEDS: MIDODRINE 2.5 MG TAB PO SCH ×2 (08:56→11:55)
[2019-12-26] MEDS: MECLIZINE HCL 12.5 MG TAB PO SCH (08:56)
[2019-12-26] MEDS: POTASSIUM CHLORIDE 10MEQ EA PO SCH (08:56)
[2019-12-26] MEDS: METOPROLOL TARTRATE 25 MG TAB PO SCH (08:56)
[2019-12-26] MEDS: FUROSEMIDE 40 MG TAB PO SCH (08:56)
[2019-12-26] MEDS ORDERED: BENZONATATE 100 MG CAP PO PRN (09:00)
[2019-12-26] MEDS ORDERED: COLLAGENASE OINTMENT 30 GM TUBE TP SCH (09:00)
[2019-12-26] MEDS ORDERED: COLLAGENASE 5 GM TUBE TP SCH ×2 (09:00)
[2019-12-26 11:55] VITALS: BP 133/64
[2019-12-26] MEDS ORDERED: CIPROFLOXACIN 250 MG TAB PO SCH (17:00)
== END 2019-12-26 14:00 ==
LOC: ER 17:47 → ERHOLD 18:51 → MED/SURG 20:02
PROVIDERS: ADMIT Internal Medicine; ATTEND Internal Medicine
DX: H81.10 Benign paroxysmal vertigo, unspecified ear (principal); R42 Dizziness and giddiness; W01.0XXA Fall on same level from slipping, tripping and stumbling without subsequent striking against object, initial encounter; Y93.89 Activity, other specified; Y92.019 Unspecified place in single-family (private) house as the place of occurrence of the external cause; I10 Essential (primary) hypertension; E78.5 Hyperlipidemia, unspecified; Z95.810 Presence of automatic (implantable) cardiac defibrillator; Z95.2 Presence of prosthetic heart valve; R53.81 Other malaise; I48.20 Chronic atrial fibrillation, unspecified; Z91.81 History of falling; Z98.890 Other specified postprocedural states; E86.9 Volume depletion, unspecified
CPT/HCPCS: 36415; 70450; 71045; 72125; 72170; 80053; 81001; 82550; 82553; 83880; 84484; 85025; 85610; 85730; 87086; 87186; 93005; 93306; 97139; 99251; 99284; G0378; J7030

== ENCOUNTER 2021-11-06 20:16 | Emergency (ER) | payer MEDICARE ==
[~2021-11-06] VITALS: Ht 177.8 cm; Wt 95.3 kg
[2021-11-06] MEDS ORDERED: GOLYTELY SOLU4000 M1 PO (20:53)
== END 2021-11-06 22:35 | disposition home or self-care (01) ==
LOC: ER 20:32
DX: K59.00 Constipation, unspecified (principal); I10 Essential (primary) hypertension; E78.5 Hyperlipidemia, unspecified; I48.91 Unspecified atrial fibrillation; G23.1 Progressive supranuclear ophthalmoplegia [Steele-Richardson-Olszewski]
CPT/HCPCS: 74018; 99283